=== PATIENT | male | born 1965 | race Caucasian/White ===

== ENCOUNTER 2018-03-04 16:08 | Inpatient (IN) | payer MEDICARE, MEDICAID ==
[2018-03-04 16:59] LABS: BASO # 0.1 K/uL (0.0-0.2); BASO % 0.8 % (0.0-2.0); EOS # 0.3 K/uL (0.0-0.7); EOS % 3.3 % (0.0-4.0); LYMPH # 1.5 K/uL (1.0-4.3); LYMPH % 15.1 % (20.0-40.0); MEAN CELL VOLUME 89.1 fL (80.0-94.0); MEAN CORPUSCULAR HEMOGLOBIN 29.3 pg (27.0-31.0); MEAN CORPUSCULAR HGB CONC 32.9 g/dL (33.0-37.0); MEAN PLATELET VOLUME 7.1 fL (7.2-11.7); MONO # 0.9 K/uL (0.0-0.8); NEUT % 71.8 % (50.0-75.0); NRBC % 0.1 % (0.0-2.0); RBC 3.76 Mil/uL (4.40-5.90); RED CELL DISTRIBUTION WIDTH 15.1 % (11.5-14.5); WHITE BLOOD COUNT 9.8 K/uL (4.8-10.8)
--- NOTE | 2018-03-04 17:22 | RAD ---
Date of service: 03/04/2018 HISTORY: Dyspnea COMPARISON: No prior. FINDINGS: LUNGS: Right lower lobe infiltrate. PLEURA: Right pleural effusion inseparable from CARDIOVASCULAR: Cardiomegaly OSSEOUS STRUCTURES: No significant abnormalities. VISUALIZED UPPER ABDOMEN: Normal. OTHER FINDINGS: None. IMPRESSION: Right lower lobe infiltrate/right pleural effusion.
[2018-03-04 17:28] LABS: TROPONIN I 0.057 ng/mL (0.00-0.120)
[2018-03-04 17:35] LABS: CALCIUM 8.2 mg/dl (8.6-10.4)
[2018-03-04 19:11] LABS: CALCIUM 8.1 mg/dl (8.6-10.4)
--- NOTE | 2018-03-04 19:18 | C.PDOC ---
History Of Present Illness 52 y/o male presents to the ED complaining of SOB for the past 1-2 weeks. Patient states he saw Dr. Pittman several days ago, had bloodwork done which revealed creatinine of 2.6. He then noted worsening SOB and developed generalized body swelling. Went to see Dr. Pittman again today, who sent patient to the ED. Patient currently denies any fever, nausea, vomiting, chest pain, abdominal pain, or other complaints. No known renal issues or hx of CHF. Time Seen by Provider: 03/04/18 16:48 Chief Complaint (Nursing): Shortness Of Breath History Per: Patient History/Exam Limitations: no limitations Onset/Duration Of Symptoms: Days (1-2 weeks) Current Symptoms Are (Timing): Still Present Associated Symptoms: Ankle/Leg Swelling Past Medical History Reviewed: Historical Data, Nursing Documentation, Vital Signs Vital Signs: Last Vital Signs Temp 98.3 F 03/04/18 16:11 Pulse 98 H 03/04/18 17:15 Resp 28 H 03/04/18 16:42 BP 175/106 H 03/04/18 16:11 Pulse Ox 99 03/04/18 16:42 - Medical History PMH: Depression, Diabetes (type II) Family History: States: Unknown Family Hx - Social History Hx Alcohol Use: No Hx Substance Use: No Review Of Systems Constitutional: Negative for: Fever, Chills Eyes: Negative for: Vision Change Cardiovascular: Negative for: Chest Pain, Palpitations Respiratory: Positive for: Shortness of Breath (worsening). Negative for: Cough, Hemoptysis Gastrointestinal: Negative for: Nausea, Vomiting Musculoskeletal: Positive for: Other (Generalized body swelling) Neurological: Negative for: Weakness, Numbness, Headache, Dizziness Physical Exam - Physical Exam Appears: Other (appears in moderate respiratory distress) Skin: Warm, Diaphoretic Head: Atraumatic, Normacephalic Eye(s): bilateral: Normal Inspection, PERRL, EOMI Oral Mucosa: Moist Neck: Normal ROM, Supple Chest: Symmetrical Cardiovascular: Rhythm Regular, No Murmur Respiratory: Rales (to the bilateral bases), No Rhonchi, No Wheezing Gastrointestinal/Abdominal: Soft, No Tenderness, No Distention, No Guarding Extremity: Normal ROM, Capillary Refill (less than 2 sec), Swelling (3+ pitting edema to bilateral ankles), Other (+ erythema and small blisters to the bilateral lower legs) Pulses: Left Dorsalis Pedis: Normal, Right Dorsalis Pedis: Normal Neurological/Psych: Oriented x3, Normal Cranial Nerves, Other (No focal deficits) ED Course And Treatment - Laboratory Results Result Diagrams: 03/05/18 08:23 03/05/18 08:23 ECG: Interpreted By Me ECG Rhythm: Sinus Rhythm Interpretation Of ECG: prolonged QTc, normal axis Rate From EC O2 Sat by Pulse Oximetry: 99 (NC) Pulse Ox Interpretation: Normal - Radiology CXR: Read By Radiologist CXR Interpretation: Yes: Other (RLL infiltrate/R pleural effusion) Critical Care Time - Critical Care Note Total Time (in mins): 30 Documented critical care: time excludes all time spent performing seperately billable procedures. Medical Decision Making Medical Decision Making: Impression: Worsening SOB, leg swelling Initial Plan: --Labs --EKG --Chest x-ray --Lasix 80 mg IVP Patient placed on BiPAP upon arrival. Labs drawn and significantly elevated BUN/Cr noted. Paged Dr. Pittman, patient will be admitted for acute renal failure. Would like Dr. Gibbs for nephrology consult. Discussed with wall covering contractor, Dr. Mcnally, patient accepted to ICU. Case discussed with Dr. Houston retail operations manager for Dr. Gibbs, made aware of nephrology consult and will arrange hemodialysis. Would like dialysis catheter placed and 80mg lasix ivp- ordered ang given in the ED. Paged Dr. Mckinney for pulmonology consult as requested by Dr. Pittman. Case discussed with Dr. Seo, will evaluate patient in the ED for dialysis catheter placement. Disposition Discussed With .: Van Pittman Jr. Doctor Will See Patient In The: Hospital Counseled Patient/Family Regarding: Studies Performed, Diagnosis - Disposition Disposition: HOSPITALIZED Disposition Time: 18:32 Condition: GUARDED - Clinical Impression Clinical Impression: Acute renal failure - Scribe Statement The provider has reviewed the documentation as recorded by the Diegoibe Francine Thornton Provider Attestation: All medical record entries made by the Scribe were at my direction and p ersonally dictated by me. I have reviewed the chart and agree that the record accurately reflects my personal performance of the history, physical exam, medical decision making, and the department course for this patient. I have also personally directed, reviewed, and agree with the discharge instructions and disposition.
[2018-03-04] MEDS ORDERED: Glucagon Recombinant 1 mg Inj IM PRN (19:55)
[2018-03-04] MEDS ORDERED: Dextrose 50% SYRINGE Inj (50 ml) IV PRN (19:55)
--- NOTE | 2018-03-04 20:27 | PCM.PROC ---
Procedures Attestation:: I certify that I have explained the specified Operation(s) or Procedure(s), risks, benefits and reasonable alternatives to the Patient and/or other person responsible. The opportunity was given to ask questions and all questions answered - Central Line Placement Right Femoral Hemodialysis Access Aseptic technique was employed throughout the procedure: Hand Hygiene done prior to procedure, Full sterile barriers (mask, hair cover, sterile gown, sterile gloves), Chloraprep Antiseptic: 2 minute prep for Femoral Pt. Placed on Pulse Ox Monitor: Yes Central Line Prep: Chlorhexidine-Alcohol Combination Local Anesthesia Used: Lidocaine 1% Ultrasound Used for Placement: Yes Central Line Lumen Inserted: double (HD catheter) Post Procedure: Sutured in Place, Good Blood Return, All Ports Aspirated, Flushed, Capped, Sterile Dressing Applied Secured by: Suture Post procedure dressing: Clear vapor permeable, Chlorhexidine disc (Biopatch) Post Procedure X-Ray: No Patient Tolerated Procedure: Well Immediate Complications: None Additional Comments: Difficult placement due to patient movement.
--- NOTE | 2018-03-04 20:38 | CP.PCM.CON ---
History of Present Illness - History of Present Illness History of Present Illness: 52 y/o male with h/o DM,HSP presents to the ED complaining of SOB for the past 1-2 weeks. Patient states he saw Dr. Pittman several days ago, had bloodwork done which revealed creatinine of 2.6. He then noted worsening SOB and developed g eneralized body swelling. Went to see Dr. Pittman again today, who sent patient to the ED. Patient currently denies any fever, nausea, vomiting, chest pain, abdominal pain, or other complaints. No known renal issues or hx of CHF. 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 absent: Fever, Headache - EENT Eyes: absent: Change in Vision Ears: absent: Ear Pain, Dizziness Nose/Mouth/Throat: absent: Sore Throat, Neck Pain - Cardiovascular Cardiovascular: Dyspnea, Edema. absent: Chest Pain, Palpitations - Respiratory Respiratory: Dyspnea. absent: Cough, Hemoptysis - Gastrointestinal Gastrointestinal: absent: Abdominal Pain, Nausea, Vomiting - Genitourinary Genitourinary: absent: Dysuria - Integumentary Integumentary: Rash, Wounds - Neurological Neurological: absent: Dizziness, Headaches Past Patient History - Past Social History Smoking Status: Never Smoked Chewing Tobacco Use: No Cigar Use: No Occupation: on disability Alcohol: None Drugs: Denies Home Situation {Lives}: With Family - NEUROLOGICAL Hx Meningitis: Yes (at age 13) - RENAL Hx Dialysis: No - ENDOCRINE/METABOLIC Hx Endocrine Disorders: Yes Hx Diabetes Mellitus Type 2: Yes - PSYCHIATRIC Hx Depression: Yes Hx Substance Use: No - SURGICAL HISTORY Hx Surgeries: Yes Other/Comment: toe removal - ANESTHESIA Hx Anesthesia: Yes Meds Allergies/Adverse Reactions: Allergies Allergy/AdvReac Type Severity Reaction Status Date / Time No Known Allergies Allergy Verified 03/04/18 16:16 - Medications Medications: Current Medications Dextrose (Dextrose 50% Inj) 0 ml IV STAT PRN; Protocol PRN Reason: Hypoglycemia Protocol Dextrose (Glutose 15) 0 gm PO ONCE PRN; Protocol PRN Reason: Hypoglycemia Protocol Glucagon (Glucagen Diagnostic Kit) 0 mg IM STAT PRN; Protocol PRN Reason: Hypoglycemia Protocol Dextrose (Dextrose 5% In Water 1000 Ml) 1,000 mls @ 0 mls/hr IV .Q0M PRN; Protocol PRN Reason: Hypoglycemia Protocol Insulin Human Regular (Novolin R) 0 unit SC ACHS ZELDA; Protocol Physical Exam - Constitutional Appears: In Acute Distress, Chronically Ill - Head Exam Head Exam: ATRAUMATIC, NORMAL INSPECTION, NORMOCEPHALIC - Eye Exam Eye Exam: EOMI, PERRL. absent: Scleral icterus Pupil Exam: NORMAL ACCOMODATION - ENT Exam ENT Exam: Mucous Membranes Moist - Neck Exam Neck exam: Positive for: Normal Inspection - Respiratory Exam Respiratory Exam: Rales. absent: Decreased Breath Sounds Additional comments: bilateral basal rales,decreased airentry in bases - Cardiovascular Exam Cardiovascular Exam: REGULAR RHYTHM. absent: JVD - GI/Abdominal Exam GI & Abdominal Exam: Normal Bowel Sounds, Soft. absent: Tenderness - Extremities Exam Extremities exam: Positive for: pedal edema. Negative for: calf tenderness Additional comments: lefr 1st toe amputated - Neurological Exam Neurological exam: Alert, Oriented x3 - Skin Additional comments: erythematous rash with blisters and small pustules both legs,abdominal wall Right groin HD catheter Results - Vital Signs Recent Vital Signs: Last Vital Signs Temp 98.3 F 03/04/18 16:11 Pulse 94 H 03/04/18 20:09 Resp 28 H 03/04/18 16:42 BP 116/75 03/04/18 19:43 Pulse Ox 99 03/04/18 19:35 - Labs Result Diagrams: 03/04/18 16:56 03/04/18 18:25 Labs: Laboratory Results - last 24 hr 03/04/18 03/04/18 03/04/18 16:19 16:56 16:56 WBC 9.8 RBC 3.76 L Hgb 11.0 L Hct 33.5 L MCV 89.1 MCH 29.3 MCHC 32.9 L RDW 15.1 H Plt Count 354 MPV 7.1 L Neut % (Auto) 71.8 Lymph % (Auto) 15.1 L [place] % (Auto) 9.0 Eos % (Auto) 3.3 Baso % (Auto) 0.8 Neut # (Auto) 7.0 Lymph # (Auto) 1.5 [place] # (Auto) 0.9 H Eos # (Auto) 0.3 Baso # (Auto) 0.1 Sodium 142 Potassium 5.5 H Chloride 108 H Carbon Dioxide 18 L Anion Gap 21 H BUN 120 H* Creatinine 8.3 H* Est GFR ( Amer) 8 Est GFR (Non-Af Amer) 7 POC Glucose (mg/dL) 139 H Random Glucose 138 H Calcium 8.2 L Troponin I 0.0570 NT-Pro-B Natriuret Pep 39945 H 03/04/18 18:25 WBC RBC Hgb Hct MCV MCH MCHC RDW Plt Count MPV Neut % (Auto) Lymph % (Auto) [place] % (Auto) Eos % (Auto) Baso % (Auto) Neut # (Auto) Lymph # (Auto) [place] # (Auto) Eos # (Auto) Baso # (Auto) Sodium 142 Potassium 5.6 H Chloride 108 H Carbon Dioxide 20 L Anion Gap 20 BUN 121 H* Creatinine 8.4 H* Est GFR ( Amer) 8 Est GFR (Non-Af Amer) 7 POC Glucose (mg/dL) Random Glucose 111 H Calcium 8.1 L Troponin I NT-Pro-B Natriuret Pep - EKG Data EKG Interpreted by: Myself - Imaging and Cardiology Chest x-ray Status: Image reviewed by me, Report reviewed by me Assessment & Plan - Assessment and Plan (Free Text) Assessment: 1. Cardiac- Elevated proBNP,no known h/o CHF For HD ECHO r/o CHF 2.Respiratory Chest xray with Right pleural effusion and?RLL infiltrate.no fever,leucocytosis. 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
[2018-03-04] MEDS: (Novolin R) Insulin Human Regular 100 units/ml vial SC SCH (22:00)
[2018-03-04 22:15] LABS: CREATININE, RANDOM URINE 43.2 mg/dL
[2018-03-04 22:44] LABS: HEPATITIS B SURFACE AG Negative (NEGATIVE)
[2018-03-04 22:50] LABS: SQUAMOUS EPITHIAL 3 /hpf (0-5); URINE AMORPHOUS SEDIMENT MODERATE /ul (<OCC); URINE BACTERIA OCC (<OCC); URINE BILIRUBIN NEGATIVE (NEGATIVE); URINE BLOOD 3+ (NEGATIVE); URINE CALCIUM OXALATE CRYSTALS OCC /hpf (<OCC); URINE CLARITY Hazy (Clear); URINE COLOR Yellow (YELLOW); URINE GLUCOSE (UA) 1+ mg/dL (Normal); URINE LEUKOCYTE ESTERASE TRACE Leu/uL (Negative); URINE PROTEIN 3+ mg/dL (NEGATIVE); URINE UROBILINOGEN NORMAL mg/dL (0.2-1.0)
[2018-03-04 23:01] LABS: HEPATITIS C ANTIBODY NEGATIVE (NEGATIVE)
--- NOTE | 2018-03-05 00:04 | CP.PCM.HP ---
History of Present Illness - History of Present Illness History of Present Illness: 52 y/o male with PMH DM, HSP presents to the ED complaining of SOB for the past [address] Pittman, pt was seen several days ago and had bloodwork done which showed a creatinine of 2.6. Pt reported worsening SOB and developed gen eralized body swelling, saw Dr. Pittman again today, who sent patient to the ED. Pt mother reports increased swelling and PO water intake over the past 2 weeks and distention of abdomen over past 3 months. Pt was seen in [place] ED last month for rash, dx HSP. He was told at that ED visit that he has renal disease. As per pt's mother, he has never had dx of CHF in the past. Patient denies fever, chest pain, nausea, vomiting, abdominal pain, diarrhea, dysuria, numbness, tingling. In ED: patient was hypoglycemic treated with dextrose, lasix 80 IV, femoral cath placed for hemodialysis tonight. SxH: partial amputation of L hallux Fam H: father , DM SocH: denies tobacco, etoh, recreational drug use Allergies: NKDA PMD: Dr. Pittman Present on Admission - Present on Admission Any Indicators Present on Admission: No Review of Systems - Review of Systems Review of Systems: as per HPI Past Patient History - Past Social History Smoking Status: Never Smoked Chewing Tobacco Use: No Cigar Use: No Occupation: on disability Alcohol: None Drugs: Denies Home Situation {Lives}: With Family - NEUROLOGICAL Hx Meningitis: Yes (at age 13) - RENAL Hx Dialysis: No - ENDOCRINE/METABOLIC Hx Endocrine Disorders: Yes Hx Diabetes Mellitus Type 2: Yes - PSYCHIATRIC Hx Depression: Yes Hx Substance Use: No - SURGICAL HISTORY Hx Surgeries: Yes Other/Comment: toe removal - ANESTHESIA Hx Anesthesia: Yes Meds Allergies/Adverse Reactions: Allergies Allergy/AdvReac Type Severity Reaction Status Date / Time No Known Allergies Allergy Verified 03/04/18 16:16 Physical Exam - Constitutional Appears: Agitated Additional comments: agitated, yelling, refusing Bipap - Head Exam Head Exam: ATRAUMATIC, NORMOCEPHALIC - Eye Exam Eye Exam: EOMI, Normal appearance - ENT Exam ENT Exam: Mucous Membranes Moist, Normal Exam - Respiratory Exam Respiratory Exam: Rhonchi. absent: Rales, Wheezes - Cardiovascular Exam Cardiovascular Exam: REGULAR RHYTHM, +S1, +S2. absent: Gallop, Rubs, Systolic Murmur - GI/Abdominal Exam GI & Abdominal Exam: Distended, Normal Bowel Sounds. absent: Soft, Tenderness - Extremities Exam Extremities exam: Positive for: pedal edema Additional comments: 3+ pitting edema b/l - Psychiatric Exam Psychiatric exam: Anxious - Skin Additional comments: erythematous papules scattered diffusely on b/l legs, with secondary excoriation. Results - Vital Signs Recent Vital Signs: Last Vital Signs Temp 98 F 03/04/18 23:00 Pulse 91 H 03/04/18 23:00 Resp 1 L 03/04/18 23:00 BP 179/101 H 03/04/18 23:00 Pulse Ox 96 03/04/18 23:00 - Labs Result Diagrams: 03/04/18 16:56 03/04/18 18:25 Labs: Laboratory Results - last 24 hr 03/04/18 03/04/18 03/04/18 16:19 16:56 16:56 WBC 9.8 RBC 3.76 L Hgb 11.0 L Hct 33.5 L MCV 89.1 MCH 29.3 MCHC 32.9 L RDW 15.1 H Plt Count 354 MPV 7.1 L Neut % (Auto) 71.8 Lymph % (Auto) 15.1 L [place] % (Auto) 9.0 Eos % (Auto) 3.3 Baso % (Auto) 0.8 Neut # (Auto) 7.0 Lymph # (Auto) 1.5 [place] # (Auto) 0.9 H Eos # (Auto) 0.3 Baso # (Auto) 0.1 ESR Sodium 142 Potassium 5.5 H Chloride 108 H Carbon Dioxide 18 L Anion Gap 21 H BUN 120 H* Creatinine 8.3 H* Est GFR ( Amer) 8 Est GFR (Non-Af Amer) 7 POC Glucose (mg/dL) 139 H Random Glucose 138 H Calcium 8.2 L Troponin I 0.0570 NT-Pro-B Natriuret Pep 48593 H Urine Color Urine Clarity Urine pH Ur Specific [place] Urine Protein Urine Glucose (UA) Urine Ketones Urine Blood Urine Nitrate Urine Bilirubin Urine Urobilinogen Ur Leukocyte Esterase Urine WBC (Auto) Urine RBC (Auto) Ur Squamous Epith Cells Calcium Oxalate Crystal Amorphous Sediment Urine Bacteria Ur Random Creatinine U Random Total Protein Ur Random Sodium Hep Bs Antigen Hep Bs Antibody Hepatitis C Antibody 03/04/18 03/04/18 03/04/18 18:25 21:35 21:50 WBC RBC Hgb Hct MCV MCH MCHC RDW Plt Count MPV Neut % (Auto) Lymph % (Auto) [place] % (Auto) Eos % (Auto) Baso % (Auto) Neut # (Auto) Lymph # (Auto) [place] # (Auto) Eos # (Auto) Baso # (Auto) ESR 120 H Sodium 142 Potassium 5.6 H Chloride 108 H Carbon Dioxide 20 L Anion Gap 20 BUN 121 H* Creatinine 8.4 H* Est GFR ( Amer) 8 Est GFR (Non-Af Amer) 7 POC Glucose (mg/dL) Random Glucose 111 H Calcium 8.1 L Troponin I NT-Pro-B Natriuret Pep Urine Color Urine Clarity Urine pH Ur Specific [place] Urine Protein Urine Glucose (UA) Urine Ketones Urine Blood Urine Nitrate Urine Bilirubin Urine Urobilinogen Ur Leukocyte Esterase Urine WBC (Auto) Urine RBC (Auto) Ur Squamous Epith Cells Calcium Oxalate Crystal Amorphous Sediment Urine Bacteria Ur Random Creatinine U Random Total Protein Ur Random Sodium Hep Bs Antigen Negative Hep Bs Antibody Hepatitis C Antibody Negative 03/04/18 03/04/18 03/04/18 21:50 21:53 21:53 WBC RBC Hgb Hct MCV MCH MCHC RDW Plt Count MPV Neut % (Auto) Lymph % (Auto) [place] % (Auto) Eos % (Auto) Baso % (Auto) Neut # (Auto) Lymph # (Auto) [place] # (Auto) Eos # (Auto) Baso # (Auto) ESR Sodium Potassium Chloride Carbon Dioxide Anion Gap BUN Creatinine Est GFR ( Amer) Est GFR (Non-Af Amer) POC Glucose (mg/dL) Random Glucose Calcium Troponin I NT-Pro-B Natriuret Pep Urine Color Yellow Urine Clarity Hazy Urine pH 6.0 Ur Specific [place] 1.008 Urine Protein 3+ H Urine Glucose (UA) 1+ H Urine Ketones Negative Urine Blood 3+ H Urine Nitrate Negative Urine Bilirubin Negative Urine Urobilinogen Normal Ur Leukocyte Esterase Trace Urine WBC (Auto) 21 H Urine RBC (Auto) 120 H Ur Squamous Epith Cells 3 Calcium Oxalate Crystal Occ H Amorphous Sediment Moderate H Urine Bacteria Occ H Ur Random Creatinine 43.2 U Random Total Protein 1100.0 H Ur Random Sodium 51 Hep Bs Antigen Hep Bs Antibody Negative Hepatitis C Antibody 03/04/18 21:56 WBC RBC Hgb Hct MCV MCH MCHC RDW Plt Count MPV Neut % (Auto) Lymph % (Auto) [place] % (Auto) Eos % (Auto) Baso % (Auto) Neut # (Auto) Lymph # (Auto) [place] # (Auto) Eos # (Auto) Baso # (Auto) ESR Sodium Potassium Chloride Carbon Dioxide Anion Gap BUN Creatinine Est GFR ( Amer) Est GFR (Non-Af Amer) POC Glucose (mg/dL) 76 Random Glucose Calcium Troponin I NT-Pro-B Natriuret Pep Urine Color Urine Clarity Urine pH Ur Specific [place] Urine Protein Urine Glucose (UA) Urine Ketones Urine Blood Urine Nitrate Urine Bilirubin Urine Urobilinogen Ur Leukocyte Esterase Urine WBC (Auto) Urine RBC (Auto) Ur Squamous Epith Cells Calcium Oxalate Crystal Amorphous Sediment Urine Bacteria Ur Random Creatinine U Random Total Protein Ur Random Sodium Hep Bs Antigen Hep Bs Antibody Hepatitis C Antibody Assessment & Plan - Assessment and Plan (Free Text) Assessment: 52 yo M with PMH DM, HSP presents to ED with shortness of breath for 2 weeks, admitted for evaluation and treatment of acute kidney failure, to be dialyzed tonight. Plan: Pulm - pt with shortness of breath - refusing bipap - CXR: R pleural effusion and RLL infiltrate - likely secondary to fluid overload - afebrile, no leukocytosis - f/u rpt CXR in AM Cardio/Vascular - EKG NSR, prolonged QT - BNP 30,800 - I/Os, daily weights - pt denies h/o CHF - f/u ECHO - pt for hemodialysis - monitor for hypotension Renal - BUN 121 - Cr 8.4 - K+ 5.6 - urine total protein 1100 - acute on chronic renal failure - pt for hemodialysis - I/Os, daily weights - f/u AM CMP - sliding scale - monitor electrolytes - nephro consulted, Dr. Houston Heme - H/H .5 - normocytic anemia - f/u iron studies, B12, folate GI - prophylaxis with protonix 40 BID ID - afebrile, no leukocytosis - f/u BCx, UCx - f/u hep panel Case reviewed and plan discussed with Dr. Pittman
--- NOTE | 2018-03-05 04:07 | CON ---
DATE: 03/04/2018 ATTENDING PHYSICIAN: . HISTORY OF PRESENT ILLNESS: Mr. Silva is a 52-year-old male who is being seen for renal failure. Mr. Silva has a long history of diabetes and hypertension, who was told of proteinuria several months ago and renal failure about a month ago. He presented to [facility] approximately a month ago with a generalized erythematous rash. At that time, they told him he had renal failure and was to see a internal review and audit compliance. They also told him that the rash was compatible with Henoch-Schonlein purpura. Over the course of the next several weeks, he developed progressive leg swelling and abdominal swelling and shortness of breath. He was seen by his primary several days ago when his creatinine was 2.6 according to the records. He came back today, apparently worse, was sent to the emergency room and subsequently admitted. His white count was at 9800, his hemoglobin was 11 with a hematocrit of 33.5. His platelet count was 354,000. His sodium was 142, his potassium was 5.6, his chloride was 108, his CO2 was 20, BUN 121, creatinine 8.4, glucose was 139. ProBNP was 30,800. The chest x-ray showed a right lower lobe infiltrate and a right pleural effusion. PAST MEDICAL HISTORY: No myocardial infarction, stroke, retinopathy, or neuropathy. He was admitted to [facility]. ALLERGIES: THERE ARE NO ALLERGIES. MEDICATIONS: Not known. FAMILY HISTORY: Positive for diabetes and heart disease. SOCIAL HISTORY: Negative for alcohol or drug abuse. He does not smoke or take anti-inflammatory agents. REVIEW OF SYSTEMS: He denies chills, fever, or orthostatic symptoms. There was no chest pain or hemoptysis. He denied abdominal pain, nausea, vomiting, or diarrhea. There was no mention of blood in his urine or dysuria, and please see the above. PHYSICAL EXAMINATION: GENERAL: He was an obese male in no acute distress with periods of agitation and yelling. VITAL SIGNS: His blood pressure was 163/100, his pulse was 97, and his temperature was 98.3. NECK: There was no jugular venous distention at 30 degrees. CARDIOPULMONARY: The heart rhythm was regular. LUNGS: Clear. ABDOMEN: Massively obese and distended, but nontender. EXTREMITIES: He had 2 to 3+ leg edema. A Reynoso was in place on his leg where eschars and erythematous ulceration. IMPRESSION: 1. Acute kidney injury, etiology unclear. Considerations include a cardiorenal syndrome, cannot rule out a systemic illness and cannot rule out underlying chronic kidney disease secondary to diabetes and/or hypertension. 2. Diabetes, hypertension. 3. Erythematous rash, etiology unclear. 4. Obesity. RECOMMENDATIONS: 1. We would recommend Reynoso catheter insertion. A 300 mL residual. In view of obvious retention, hyperkalemia, shortness of breath, and elevated creatinine would schedule a short dialysis with slow blood flow and mild ultrafiltration. 2, Renal ultrasound, urine for protein, creatinine, and sodium. 3. We would obtain dermatology consult for biopsy of skin lesions. History and physical and consent for dialysis obtained by bilingual interpreter. The patient consented to dialysis. Thank you for your kind referral. We will continue to follow with you. Magdiel Houston MD
[2018-03-05] MEDS: (Novolin R) Insulin Human Regular 100 units/ml vial SC SCH ×4 (07:30→22:33)
[2018-03-05 08:39] LABS: BASO # 0.1 K/uL (0.0-0.2); BASO % 0.9 % (0.0-2.0); EOS # 0.3 K/uL (0.0-0.7); EOSINOPHIL COUNT 0.3 K/uL (0.0-0.7); HEMOGLOBIN 9.6 g/dL (12.0-18.0); LYMPH # 1.3 K/uL (1.0-4.3); LYMPH % 14.6 % (20.0-40.0); MEAN CELL VOLUME 87.8 fL (80.0-94.0); MEAN CORPUSCULAR HEMOGLOBIN 29.3 pg (27.0-31.0); MEAN CORPUSCULAR HGB CONC 33.4 g/dL (33.0-37.0); MEAN PLATELET VOLUME 7.4 fL (7.2-11.7); MONO # 0.8 K/uL (0.0-0.8); MONO % 9.4 % (0.0-10.0); NEUT # 6.2 K/uL (1.8-7.0); NEUT % 72.1 % (50.0-75.0); NRBC % 0.1 % (0.0-2.0); RBC 3.27 Mil/uL (4.40-5.90); RED CELL DISTRIBUTION WIDTH 15.2 % (11.5-14.5); WHITE BLOOD COUNT 8.6 K/uL (4.8-10.8)
[2018-03-05 09:00] LABS: COMPLEMENT C4 43.6 mg/dL (14.0-44.0)
[2018-03-05 09:02] LABS: ALB/GLOB RATIO 0.8 (1.0-2.1); ALBUMIN 2.8 g/dL (3.5-5.0); IRON 33 ug/dL (49-181)
[2018-03-05 09:11] LABS: % IRON SATURATION 11 (20-55); TOTAL IRON BINDING CAPACITY 300 ug/dL (250-450)
[2018-03-05 09:40] LABS: HEPATITIS C ANTIBODY NEGATIVE (NEGATIVE)
[2018-03-05] MEDS: Pantoprazole 40 mg EC Tab PO SCH (09:42)
[2018-03-05 09:56] LABS: FOLATE 13.3 ng/mL
[2018-03-05 11:21] LABS: ANA PATTERN HOMOGENOUS
--- NOTE | 2018-03-05 14:32 | CP.PCM.PN ---
Subjective - Date & Time of Evaluation Date of Evaluation: 03/05/18 Time of Evaluation: 14:27 - Subjective Subjective: unable to obtain ROS pt agitated and rocking back and forth no family in room tolerated HD last night, 1 kg uf labs noted for MARKY + urine eosinophils + Objective - Vital Signs/Intake and Output Vital Signs (last 24 hours): Temp Pulse Resp BP Pulse Ox 97.6 F 103 H 20 162/102 H 99 03/05/18 07:00 03/05/18 13:58 03/05/18 07:00 03/05/18 13:04 03/05/18 07:00 Intake and Output: 03/05/18 03/05/18 06:59 18:59 Intake Total 600 Output Total 1800 1400 Balance -1800 -800 - Medications Medications: Current Medications Amlodipine Besylate (Norvasc) 10 mg PO DAILY [facility] Last Admin: 03/05/18 13:00 Dose: 10 mg Benztropine Mesylate (Cogentin) 2 mg PO DAILY [facility] Last Admin: 03/05/18 13:00 Dose: 2 mg Dextrose (Dextrose 50% Inj) 0 ml IV STAT PRN; Protocol PRN Reason: Hypoglycemia Protocol Dextrose (Glutose 15) 0 gm PO ONCE PRN; Protocol PRN Reason: Hypoglycemia Protocol Glimepiride (Amaryl) 4 mg PO ACB [facility] Last Admin: 03/05/18 13:03 Dose: 4 mg Glucagon (Glucagen Diagnostic Kit) 0 mg IM STAT PRN; Protocol PRN Reason: Hypoglycemia Protocol Heparin Sodium (Porcine) (Heparin) 5,000 units SC Q8 [facility] Last Admin: 03/05/18 13:03 Dose: Not Given Dextrose (Dextrose 5% In Water 1000 Ml) 1,000 mls @ 0 mls/hr IV .Q0M PRN; Protocol PRN Reason: Hypoglycemia Protocol Insulin Glargine (Lantus) 25 unit SC HS [facility] Insulin Human Regular (Novolin R) 0 unit SC ACHS [facility]; Protocol Last Admin: 03/05/18 12:21 Dose: Not Given Lisinopril (Zestril) 40 mg PO Q24H [facility] Olanzapine (Zyprexa) 20 mg PO DAILY [facility] Last Admin: 03/05/18 13:00 Dose: 20 mg Pantoprazole Sodium (Protonix Ec Tab) 40 mg PO DAILY [facility] Last Admin: 03/05/18 09:42 Dose: 40 mg Pneumococcal Polyvalent Vaccine (Pneumovax 23 Vaccine) 0.5 ml IM .ONCE ONE Stop: 03/07/18 14:01 Zolpidem Tartrate (Ambien) 5 mg PO HS [facility] - Labs Labs: 03/05/18 08:23 03/05/18 08:23 - Constitutional Appears: Unkempt, Combative, Chronically Ill - Head Exam Head Exam: ATRAUMATIC, NORMAL INSPECTION - Eye Exam Eye Exam: EOMI - ENT Exam ENT Exam: Mucous Membranes Moist - Neck Exam Neck Exam: Full ROM. absent: Lymphadenopathy - Respiratory Exam Respiratory Exam: Rales - Cardiovascular Exam Cardiovascular Exam: REGULAR RHYTHM - GI/Abdominal Exam GI & Abdominal Exam: Soft. absent: Tenderness - Extremities Exam Extremities Exam: Pedal Edema - Neurological Exam Neurological Exam: Alert, Awake - Psychiatric Exam Psychiatric exam: Agitated Assessment and Plan - Assessment and Plan (Free Text) Assessment: possible RPGN vs diabetic nephropathy history of recent skin biopsy with HSP findings volume overloaded and hypertensive repeat HD today for fluid overload and HTN start Norvasc Please obtain skin biopsy report if evidence of HSP, consideration to pulse steroids; some concern, given agitation and diabetic state will not pursue kidney biopsy,given agitation
--- NOTE | 2018-03-05 15:08 | PCM.PSYCH ---
Initial Psychiatric Evaluation - Initial Psychiatric Evaluation Chief Complaint (in patient's own words): "I wanna go home" History of Present Illness and Precipitating Events: Psych consult was requested for his acute psychosis, confusion, agitation Pt is seen with a medical medical laboratory technologist Chart reviewed His mother is called with his permission but she was not available and no vm opened He is a very poor historian, plus hotile and uncooperative He has been refusing treatment and lab work, despite very severe condition (BUN>90) and risks. He does NOT grasp the risks and consequences of his refusal When confronted with "you may " he shrugged and said he didn't care. He also seemed very thought disordered, paranoid and bizarre He is on Zyprexa 20 mg but not clear if he was comliant Also, given his DKA, zyprexa is the last medication to use among antipsychotics Haldol is started Past psych hx: Admissions in the past. Denied substance hx Medical: Obese, HTN, DM, now renal failure? Family psych hx: Unknown Current Medications: Active Medications Generic Name Dose Route Start Last Admin Trade Name Freq PRN Reason Stop Dose Admin Amlodipine Besylate 10 mg 03/05/18 13:00 03/05/18 13:00 Norvasc PO 10 mg DAILY [facility] Administration Benztropine Mesylate 2 mg 03/05/18 13:00 03/05/18 13:00 Cogentin PO 2 mg DAILY [facility] Administration Dextrose 0 ml 03/04/18 19:55 Dextrose 50% Inj IV STAT PRN Hypoglycemia Protocol Protocol Dextrose 0 gm 03/04/18 19:55 Glutose 15 PO ONCE PRN Hypoglycemia Protocol Protocol Glimepiride 4 mg 03/05/18 12:15 03/05/18 13:03 Amaryl PO 4 mg ACB [facility] Administration Glucagon 0 mg 03/04/18 19:55 Glucagen Diagnostic Kit IM STAT PRN Hypoglycemia Protocol Protocol Heparin Sodium (Porcine) 5,000 units 03/04/18 22:00 03/05/18 13:03 Heparin SC Not Given Q8 [facility] Dextrose 1,000 mls @ 0 mls/hr 03/04/18 19:55 Dextrose 5% In Water 1000 Ml IV .Q0M PRN Hypoglycemia Protocol Protocol Per Protocol Insulin Glargine 25 unit 03/05/18 22:00 Lantus SC HS [facility] Insulin Human Regular 0 unit 03/04/18 22:00 03/05/18 12:21 Novolin R SC Not Given ACHS [facility] Protocol Lisinopril 40 mg 03/05/18 14:30 03/05/18 14:33 Zestril PO Not Given Q24H [facility] Olanzapine 20 mg 03/05/18 13:00 03/05/18 13:00 Zyprexa PO 20 mg DAILY [facility] Administration Pantoprazole Sodium 40 mg 03/05/18 10:00 03/05/18 09:42 Protonix Ec Tab PO 40 mg DAILY [facility] Administration Pneumococcal Polyvalent Vaccine 0.5 ml 03/07/18 14:00 Pneumovax 23 Vaccine IM 03/07/18 14:01 .ONCE ONE Zolpidem Tartrate 5 mg 03/05/18 22:00 Ambien PO [facility] Past Psychiatric History - Past Psychiatric History Previous Treatment History: Inpatient Pertinent Medical Hx (Current Medical&Sleep Prob, Allergies): Allergies Allergy/AdvReac Type Severity Reaction Status Date / Time No Known Allergies Allergy Verified 03/04/18 16:16 Insulin Glargine, Recombina [Lantus] 25 unit SC 03/04/18 Zolpidem [Ambien] 10 mg PO HS 03/04/18 Zyprexa 20 mg PO DAILY 03/04/18 Benztropine [Benztropine Mesylate] 2 mg PO DAILY 03/05/18 Glimepiride [Amaryl] 4 mg PO DAILY 03/05/18 Review of Systems - Review of Systems Systems not reviewed;Unavailable: Psychotic Mental Status Examination - Personal Presentation Personal Presentation: Looks older than stated age - Affect Affect: Other (intense, labile) - Motor Activity Motor Activity: Psychomotor Agitation - Reliability in Providing Information Reliability in Providing Information: Poor, due to alteration in thoughts - Speech Speech: Disorganized - Mood Mood: Other (irate, angry) - Formal Thought Process Formal Thought Process: Paranoia, Loosening of associations - Cognitive Functions Orientation: Person, Place Sensorium: Alert Attention/Concentration: Easily distracted Abstract Thinking: [place] Estimate of Intelligence: Below average Judgement: Imparied, as evidence by: Poor judgement Memory: Recent impaired, as evidence by: Inability to recall events of the day, Remote impaired as evidenced by: Inability to recall sig life events - Risk Risk: Diminished functioning - Strength & Assets Inventory Strength & Assets Inventory: Family support DSM 5 DX - DSM 5 DSM 5 Diagnosis: Chronic schizophrenia, acute exacerbation r/o schizoaffective d/o r/o pending delirium r/o intellectual disability - Recommended/Plan of Treatment Treatment Recommendations and Plan of Treatment: The brii does NOT have capacity to make medical decisions. Haldol will replace zyprexa Support and psychoed Involve mother, maybe she will be able to convince him Guardian? 33 min
--- NOTE | 2018-03-05 16:10 | CARD ---
APPROVED REPORT Date of service: 03/04/2018 EKG Measurement Heart [id number] <Conclusion> Normal sinus rhythm Nonspecific T wave abnormality Prolonged QT Abnormal ECG
--- NOTE | 2018-03-05 18:03 | CP.PCM.PN ---
Subjective - Date & Time of Evaluation Date of Evaluation: 03/05/18 Time of Evaluation: 08:30 - Subjective Subjective: PGY-[address] Pittman Patient is seen and examined at bedside.Patient states he wants to go home multiple times and refuses to answer questions regarding his health. Patient asked to leave him alone and curses out loud. ROS unttainable due to patient refusing to answer. Objective - Vital Signs/Intake and Output Vital Signs (last 24 hours): Temp Pulse Resp BP Pulse Ox 97.6 F 98 H 20 163/97 H 95 03/05/18 16:04 03/05/18 17:00 03/05/18 16:04 03/05/18 16:04 03/05/18 16:04 Intake and Output: 03/05/18 03/05/18 06:59 18:59 Intake Total 600 Output Total 1800 1400 Balance -1800 -800 - Medications Medications: Current Medications Amlodipine Besylate (Norvasc) 10 mg PO DAILY [facility] Last Admin: 03/05/18 15:15 Dose: Not Given Benztropine Mesylate (Cogentin) 2 mg PO DAILY [facility] Last Admin: 03/05/18 15:15 Dose: Not Given Dextrose (Dextrose 50% Inj) 0 ml IV STAT PRN; Protocol PRN Reason: Hypoglycemia Protocol Dextrose (Glutose 15) 0 gm PO ONCE PRN; Protocol PRN Reason: Hypoglycemia Protocol Glimepiride (Amaryl) 4 mg PO ACB [facility] Last Admin: 03/05/18 15:14 Dose: Not Given Glucagon (Glucagen Diagnostic Kit) 0 mg IM STAT PRN; Protocol PRN Reason: Hypoglycemia Protocol Haloperidol (Haldol) 5 mg PO BID [facility] Last Admin: 03/05/18 17:52 Dose: 5 mg Heparin Sodium (Porcine) (Heparin) 5,000 units SC Q8 [facility] Last Admin: 03/05/18 13:03 Dose: Not Given Dextrose (Dextrose 5% In Water 1000 Ml) 1,000 mls @ 0 mls/hr IV .Q0M PRN; Protocol PRN Reason: Hypoglycemia Protocol Insulin Glargine (Lantus) 25 unit SC HS [facility] Insulin Human Regular (Novolin R) 0 unit SC ACHS [facility]; Protocol Last Admin: 03/05/18 17:51 Dose: 1 unit Lisinopril (Zestril) 40 mg PO Q24H [facility] Last Admin: 03/05/18 14:33 Dose: Not Given Olanzapine (Zyprexa) 10 mg PO HS [facility] Pantoprazole Sodium (Protonix Ec Tab) 40 mg PO DAILY [facility] Last Admin: 03/05/18 09:42 Dose: 40 mg Pneumococcal Polyvalent Vaccine (Pneumovax 23 Vaccine) 0.5 ml IM .ONCE ONE Stop: 03/07/18 14:01 Trazodone HCl (Desyrel) 100 mg PO HS [facility] Zolpidem Tartrate (Ambien) 5 mg PO HS [facility] - Labs Labs: 03/05/18 08:23 03/05/18 08:23 - Constitutional Appears: Non-toxic, No Acute Distress, Unkempt, Agitated - Head Exam Head Exam: ATRAUMATIC, NORMAL INSPECTION, NORMOCEPHALIC - Eye Exam Eye Exam: EOMI, Normal appearance - ENT Exam ENT Exam: Mucous Membranes Moist, Normal Exam - Neck Exam Neck Exam: Full ROM, Normal Inspection - Respiratory Exam Respiratory Exam: Clear to Ausculation Bilateral, NORMAL BREATHING PATTERN. absent: Accessory Muscle Use, Rales, Rhonchi, Wheezes, Respiratory Distress - Cardiovascular Exam Cardiovascular Exam: REGULAR RHYTHM, +S1, +S2 - GI/Abdominal Exam GI & Abdominal Exam: Soft, Normal Bowel Sounds. absent: Distended, Tenderness - Extremities Exam Extremities Exam: Full ROM, Normal Inspection Additional comments: bilateral lower extremity edema multiple erythematous lesions in both extremities - Back Exam Back Exam: Full ROM, NORMAL INSPECTION - Neurological Exam Neurological Exam: Alert, Awake, Normal Gait - Psychiatric Exam Psychiatric exam: Agitated, Anxious, Depressed, Flat Affect - Skin Skin Exam: Dry, Warm Assessment and Plan - Assessment and Plan (Free Text) Plan: Acute kidney failure - acute on chronic renal failure - On Admission: BUN 121, cr 8.4, K 5.4, urine total protein 1100 - Hemodialysis completed yesterday - today's lab : BUN 99, cr 6.7, K 4.7 - Patient to go for HD today, patient most likely to continue HD, follow Dr Yoseph justin - continue I/O -renal U/S - pending report - Nephro - Dr Henyr/Dr Houston- possible RPGN vs diabetic nephropathy, history of recent skin biopsy with HSP findings volume overloaded and hypertensive, repeat HD today for fluid overload and HTN, start Norvasc Please obtain skin biopsy report, if evidence of HSP, consideration to pulse steroids; some concern, given agitation and diabetic state, will not pursue kidney biopsy,given agitation -f/u ANCA, Cryoglobulin, GBM AB - f/u am labs - f/u Hep B and Hep C panel dyspnea, most likely due to fluid overload - Pulm consult - Dr Mckinney - help is appreciated -CXR: R pleural effusion and RLL infiltrate - likely secondary to fluid overload - afebrile, no leukocytosis - repeat CXR - pending official report - f/u Echo - f/u blood culture/urine culture - refuses bipap - O2 Sat - 99% High blood pressure -received Lasix 80 mg IVP once in ED, 40 mg IVP stat later in the medical laboratory scientist - lisinopril 40 mg PO Q 24hrs - amlodipine 10 mg PO daily - continue to monitor blood pressure hx of DM -sliding scale -Insulin Glargine 25 unit SC HS -Glimepriride 4 mg po ACB -hypoglycemia protocol - F/U HbA1c - accuchecks ACHS ? hx of Henoch Scholein Purpura (HSP) - obtain report from [facility] - Patient to sign consent to release medical records to [facility] - will follow on biopsy report from [facility] Hx of anxiety/depression/psychiatric disorder - Halopridol 5mg PO BID - [id number] po HS - trazodone 100mg PO HS - Zolpidem 5mg HS - Benztropine 2mg PO - Psych consult Dr Leyva - recs is appreciated Lower extremity lesions - wound care consulted - follow up recs PPX - Heparin 5000 units SC Q8 - Protonix 40 mg PO daily -contraindication for SCDs - f/u PT, OT, case management - HHD - grain picker referral Dispo: Patient is non compliant with medication. Patient's mother Tere Silva can be reached at [phone] (uzbek speaker) Plan discussed with Dr Pittman. Medical management as per Dr Zain Crawford, PGY-1
[2018-03-05 18:06] LABS: HEPATITIS B SURFACE AG Negative (NEGATIVE)
[2018-03-05 18:12] LABS: HEPATITIS A IGM NEGATIVE (NEGATIVE); HEPATITIS B CORE AB NEGATIVE (NEGATIVE)
[2018-03-05 18:24] LABS: HEPATITIS C ANTIBODY NEGATIVE (NEGATIVE)
[2018-03-05] MEDS: (Lantus) Insulin Glargine, Recombinant SC SCH (22:33)
[2018-03-06 07:21] LABS: BASO # 0.1 K/uL (0.0-0.2); BASO % 0.6 % (0.0-2.0); EOS # 0.3 K/uL (0.0-0.7); EOS % 3.1 % (0.0-4.0); HEMOGLOBIN 9.3 g/dL (12.0-18.0); LYMPH # 1.4 K/uL (1.0-4.3); LYMPH % 15.3 % (20.0-40.0); MEAN CELL VOLUME 88.1 fL (80.0-94.0); MEAN CORPUSCULAR HGB CONC 32.9 g/dL (33.0-37.0); MEAN PLATELET VOLUME 7.3 fL (7.2-11.7); MONO # 0.9 K/uL (0.0-0.8); NEUT # 6.8 K/uL (1.8-7.0); NRBC % 0.1 % (0.0-2.0); RBC 3.2 Mil/uL (4.40-5.90); WHITE BLOOD COUNT 9.4 K/uL (4.8-10.8)
[2018-03-06] MEDS: (Novolin R) Insulin Human Regular 100 units/ml vial SC SCH ×5 (07:41→22:05)
[2018-03-06 08:03] LABS: ALB/GLOB RATIO 0.8 (1.0-2.1); ALBUMIN 2.7 g/dL (3.5-5.0); CALCIUM 7.7 mg/dl (8.6-10.4)
--- NOTE | 2018-03-06 08:34 | RAD ---
Date of service: 03/05/2018 PROCEDURE: CHEST RADIOGRAPH, 1 VIEW HISTORY: RLL infiltrate/pleural effusion COMPARISON: 03/04/2018. FINDINGS: LUNGS: Little interval change in airspace disease in the right lower lobe. Again seen is moderate pulmonary venous congestion. PLEURA: No pneumothorax. No change in moderate right pleural effusion. Suspect small left pleural effusion. CARDIOVASCULAR: Persistent moderate cardiomegaly. OSSEOUS STRUCTURES: No significant abnormalities. VISUALIZED UPPER ABDOMEN: Normal. OTHER FINDINGS: None. IMPRESSION: Little interval change in left lower lobe atelectasis/pneumonia and moderate left pleural effusion. Persistent moderate cardiomegaly, mild pulmonary venous congestion and suspect small left pleural effusion.
[2018-03-06] MEDS: Pantoprazole 40 mg EC Tab PO SCH (10:38)
--- NOTE | 2018-03-06 13:40 | US ---
Date of service: 03/04/2018 PROCEDURE: Ultrasound of the Kidneys HISTORY: acute kidney failure COMPARISON: None available. TECHNIQUE: Sonogram of the kidneys. FINDINGS: RIGHT KIDNEY: Measures: 7.9 x 3.9 x 4.4 cm. Normal in size, and contour. Mild increased echogenicity-can be seen with medical renal disease. No stone, solid mass lesion or hydronephrosis visualized. A mid to upper pole cyst 2.0 x 1.5 x 2.2 cm in size is noted. LEFT KIDNEY: Measures: 11.9 x 5.1 x 5.5 cm. Normal in size, and contour. Mild increased echogenicity-can be seen with medical renal disease. No stone, solid mass lesion or hydronephrosis visualized. An upper pole cyst-4.9 x 3.3 x 4.6 any lower pole cyst 1.3 x 1.0 x 1.1 cm in size is noted. OTHER FINDINGS: On some of the images there is some perceived increased echogenicity around biliary triads over inferred imaging of the liver. If not already known and if clinically indicated, consider follow-up abdominal ultrasound study for further evaluation Technologist has noted that patient has a Reynoso catheter however the catheter is not visualized in the urinary bladder area. Please correlate clinically IMPRESSION: Bilateral renal cysts. No hydronephrosis. Bilateral relative increased renal cortical echogenicity-can be seen with medical renal disease. Other findings as above.
--- NOTE | 2018-03-06 13:52 | CP.PCM.PN ---
Subjective - Date & Time of Evaluation Date of Evaluation: 03/06/18 Time of Evaluation: 13:49 - Subjective Subjective: seen and examined notes reviewed renal US noted ROS cannot be obtained, pt is sleeping and on waking up refuses to answer questions Objective - Vital Signs/Intake and Output Vital Signs (last 24 hours): Temp Pulse Resp BP Pulse Ox 98.2 F 106 H 20 156/96 H 94 L 03/06/18 08:00 03/06/18 12:58 03/06/18 08:00 03/06/18 08:00 03/06/18 08:00 Intake and Output: 03/06/18 03/06/18 06:59 18:59 Intake Total 120 Output Total 700 475 Balance -700 -355 - Medications Medications: Current Medications Amlodipine Besylate (Norvasc) 10 mg PO DAILY [facility] Last Admin: 03/06/18 10:37 Dose: 10 mg Benztropine Mesylate (Cogentin) 2 mg PO DAILY [facility] Last Admin: 03/06/18 10:38 Dose: 2 mg Dextrose (Dextrose 50% Inj) 0 ml IV STAT PRN; Protocol PRN Reason: Hypoglycemia Protocol Dextrose (Glutose 15) 0 gm PO ONCE PRN; Protocol PRN Reason: Hypoglycemia Protocol Glimepiride (Amaryl) 4 mg PO ACB [facility] Last Admin: 03/06/18 08:12 Dose: 4 mg Glucagon (Glucagen Diagnostic Kit) 0 mg IM STAT PRN; Protocol PRN Reason: Hypoglycemia Protocol Haloperidol (Haldol) 5 mg PO BID [facility] Last Admin: 03/06/18 10:37 Dose: 5 mg Heparin Sodium (Porcine) (Heparin) 5,000 units SC Q8 [facility] Last Admin: 03/06/18 06:41 Dose: Not Given Dextrose (Dextrose 5% In Water 1000 Ml) 1,000 mls @ 0 mls/hr IV .Q0M PRN; Protocol PRN Reason: Hypoglycemia Protocol Insulin Glargine (Lantus) 25 unit SC HS [facility] Last Admin: 03/05/18 22:33 Dose: Not Given Insulin Human Regular (Novolin R) 0 unit SC ACHS [facility]; Protocol Last Admin: 03/06/18 12:03 Dose: Not Given Lisinopril (Zestril) 40 mg PO Q24H [facility] Last Admin: 03/05/18 14:33 Dose: Not Given Olanzapine (Zyprexa) 10 mg PO [facility] Last Admin: 03/05/18 22:32 Dose: 10 mg Pantoprazole Sodium (Protonix Ec Tab) 40 mg PO DAILY [facility] Last Admin: 03/06/18 10:38 Dose: 40 mg Pneumococcal Polyvalent Vaccine (Pneumovax 23 Vaccine) 0.5 ml IM .ONCE ONE Stop: 03/07/18 14:01 Trazodone HCl (Desyrel) 100 mg PO [facility] Last Admin: 03/05/18 22:31 Dose: 100 mg Zolpidem Tartrate (Ambien) 5 mg PO [facility] Last Admin: 03/05/18 22:31 Dose: 5 mg - Labs Labs: 03/06/18 07:05 03/06/18 07:05 - Constitutional Appears: Non-toxic, No Acute Distress - Head Exam Head Exam: NORMAL INSPECTION, NORMOCEPHALIC - Eye Exam Eye Exam: Normal appearance - ENT Exam ENT Exam: Mucous Membranes Moist, Normal Exam - Neck Exam Neck Exam: Full ROM, Normal Inspection - Respiratory Exam Respiratory Exam: Clear to Ausculation Bilateral, NORMAL BREATHING PATTERN - Cardiovascular Exam Cardiovascular Exam: REGULAR RHYTHM, RRR - GI/Abdominal Exam GI & Abdominal Exam: Distended, Soft - Extremities Exam Extremities Exam: Pedal Edema - Neurological Exam Neurological Exam: Awake - Psychiatric Exam Psychiatric exam: Agitated - Skin Skin Exam: Normal Color, Warm Assessment and Plan (1) Acute renal failure Status: Acute (2) Cellulitis of right leg Status: Acute (3) Hyperglycemia Status: Acute - Assessment and Plan (Free Text) Assessment: # BRIAN / hyperkalemia / azotemia requiring hd # acute psychosis # nephrotic syndrome # Question of henoch schonlein purpura on skin biopsy? # anemia # DM # HTN plan: refusing most meds and treatments. psych eval noted cause of brian unclear. Pt is a poor candidate for empiric pulse steroids - may exacerbate psychosis, hx of DKA, htn Not a candidate for renal biopsy as well. Known DM, probable underlying ckd. history unclear. Serology unremarkable so far. nl complements, hepatitis negative. very mildly pos MARKY. would get skin biopsy report done outside. maintain hd , next treatment tomorrow and then mwf add iv lasix dc lisinopril. needs permcath
--- NOTE | 2018-03-06 14:00 | CP.PCM.PN ---
Subjective - Date & Time of Evaluation Date of Evaluation: 03/06/18 Time of Evaluation: 13:53 - Subjective Subjective: Patient examined at bedside, sleeping deeply. Pt was irritated to be awoken and responded to my questions in Kyrgyz. Denies chest pain, SOB, abd pain, nausea, diarrhea, painful or itchy rash. Pt has ambrocio actively draining concentrated yellow/pink tinged urine. Objective - Vital Signs/Intake and Output Vital Signs (last 24 hours): Temp Pulse Resp BP Pulse Ox 98.2 F 106 H 20 156/96 H 94 L 03/06/18 08:00 03/06/18 12:58 03/06/18 08:00 03/06/18 08:00 03/06/18 08:00 Intake and Output: 03/06/18 03/06/18 06:59 18:59 Intake Total 120 Output Total 700 475 Balance -700 -355 - Medications Medications: Current Medications Amlodipine Besylate (Norvasc) 10 mg PO DAILY [facility] Last Admin: 03/06/18 10:37 Dose: 10 mg Benztropine Mesylate (Cogentin) 2 mg PO DAILY [facility] Last Admin: 03/06/18 10:38 Dose: 2 mg Dextrose (Dextrose 50% Inj) 0 ml IV STAT PRN; Protocol PRN Reason: Hypoglycemia Protocol Dextrose (Glutose 15) 0 gm PO ONCE PRN; Protocol PRN Reason: Hypoglycemia Protocol Glimepiride (Amaryl) 4 mg PO ACB [facility] Last Admin: 03/06/18 08:12 Dose: 4 mg Glucagon (Glucagen Diagnostic Kit) 0 mg IM STAT PRN; Protocol PRN Reason: Hypoglycemia Protocol Haloperidol (Haldol) 5 mg PO BID [facility] Last Admin: 03/06/18 10:37 Dose: 5 mg Heparin Sodium (Porcine) (Heparin) 5,000 units SC Q8 [facility] Last Admin: 03/06/18 06:41 Dose: Not Given Dextrose (Dextrose 5% In Water 1000 Ml) 1,000 mls @ 0 mls/hr IV .Q0M PRN; Protocol PRN Reason: Hypoglycemia Protocol Insulin Glargine (Lantus) 25 unit SC HS [facility] Last Admin: 03/05/18 22:33 Dose: Not Given Insulin Human Regular (Novolin R) 0 unit SC ACHS [facility]; Protocol Last Admin: 03/06/18 12:03 Dose: Not Given Lisinopril (Zestril) 40 mg PO Q24H [facility] Last Admin: 03/05/18 14:33 Dose: Not Given Olanzapine (Zyprexa) 10 mg PO [facility] Last Admin: 03/05/18 22:32 Dose: 10 mg Pantoprazole Sodium (Protonix Ec Tab) 40 mg PO DAILY [facility] Last Admin: 03/06/18 10:38 Dose: 40 mg Pneumococcal Polyvalent Vaccine (Pneumovax 23 Vaccine) 0.5 ml IM .ONCE ONE Stop: 03/07/18 14:01 Trazodone HCl (Desyrel) 100 mg PO [facility] Last Admin: 03/05/18 22:31 Dose: 100 mg Zolpidem Tartrate (Ambien) 5 mg PO [facility] Last Admin: 03/05/18 22:31 Dose: 5 mg - Labs Labs: 03/06/18 07:05 03/06/18 07:05 - Constitutional Appears: No Acute Distress, Agitated - Head Exam Head Exam: ATRAUMATIC, NORMAL INSPECTION, NORMOCEPHALIC - Eye Exam Eye Exam: Normal appearance - ENT Exam ENT Exam: Mucous Membranes Moist, Normal Exam - Neck Exam Neck Exam: Normal Inspection - Respiratory Exam Respiratory Exam: Clear to Ausculation Bilateral. absent: Rhonchi, Wheezes, NORMAL BREATHING PATTERN (labored breathing) - Cardiovascular Exam Cardiovascular Exam: Tachycardia, REGULAR RHYTHM, +S1, +S2. absent: Murmur - GI/Abdominal Exam GI & Abdominal Exam: Soft, Normal Bowel Sounds. absent: Distended, Tenderness - Exam Exam: Scrotal Swelling - Extremities Exam Extremities Exam: Pedal Edema (B/L LE edema). absent: Normal Inspection (Left great toe absent) - Psychiatric Exam Psychiatric exam: Agitated - Skin Skin Exam: Dry, Petechiae, Rash (B/L LE erythematous macular lesions.), Warm Assessment and Plan - Assessment and Plan (Free Text) Assessment: 52 year old male w/ a PMHx of DM, and reported hx of HSP diagnosed at [facility] in January, admitted with fluid overload 2/[address] Mckeon, pt will need a permacath placed for HD. Pt to be dialyzed today again. She will try to get [facility] records. -renal u/s 03/05 shows b/l renal cysts and evidence of medical renal dz -ambrocio in place -Nephro consult Dr. Houston -sx consult, Dr. Seo for permacath HSP -hold steroid tx until bx confirmation -awaiting skin bx results from [place]. Dyspnea -CXR 03/05 shows pulm vasc congestion and atelectasis/pna -Pulm consult Dr. Mckinney DM2 -hgb a1c 7.9 -lantus 25u hs -ISS -glimepiride 4mg acb HTN -norvasc 10mg po -hydralazine 25mg po bid Thrombocytopenia -354-->[address] Leyva has declared pt incapable of making his own medical decisions. -cogentin 2mg po -ambien 5mg po hs -trazodone 100mf po hs -haldol 5mg po bid -zyprexa 10mg po hs -psych consult Dr. Leyva Ppx -heparin 5000sc q8 -protonix 40mg po
--- NOTE | 2018-03-06 15:45 | CP.PCM.CON ---
History of Present Illness - History of Present Illness History of Present Illness: Vascular Surgery Consult Re: Permacath placement for HD HPI: 52M presented to the ED c/o SOB x 2 weeks. Pt was seen several days prior by PMD and found to have a creatinine of 2.6. Pt reported worsening SOB and generalized edema, saw PMD on day of admission, who sent patient to the ED. Pt was seen in [place] ED last month for rash, with a Dx of HSP. He was also told at that he has renal disease. He had a temporary cath placed by the vascular surgery team in the ED. Currently, pt is without complaint and is declining all medical treatments, however Psych has deemed him incapable of making his own medical decisions. Denies fever, chills, chest pain, SOB, nausea, emesis, abdominal pain, diarrhea, dysuria, numbness, tingling. PMH: DM2, HS purpura PSH: toe amputation FH: non contributory SH: No tobacco, EtOH, or drug use. All: NKDA Meds: see MAR Review of Systems - Review of Systems All systems: reviewed and no additional remarkable complaints except (as per HPI) Past Patient History - Past Medical History & Family History Past Medical History?: Yes - Past Social History Smoking Status: Never Smoked - CARDIAC Hx Hypertension: Yes - PULMONARY Hx Respiratory Disorders: No - NEUROLOGICAL Hx Neurological Disorder: Yes Hx Meningitis: Yes (at age 13) - HEENT Hx HEENT Problems: No - RENAL Hx Chronic Kidney Disease: No Date of Last Dialysis Treatment: 03/04/18 - ENDOCRINE/METABOLIC Hx Diabetes Mellitus Type 2: Yes - HEMATOLOGICAL/ONCOLOGICAL Hx Blood Disorders: No - INTEGUMENTARY Hx Dermatological Problems: Yes Other/Comment: Diabetic foot ulcers and Pt has red blister like rash on Chest and BLE - MUSCULOSKELETAL/RHEUMATOLOGICAL Hx Musculoskeletal Disorders: Yes Hx Falls: Yes (Pts mother said he falls alot) - GASTROINTESTINAL Hx Gastrointestinal Disorders: No - GENITOURINARY/GYNECOLOGICAL Hx Genitourinary Disorders: No - PSYCHIATRIC Hx Depression: Yes Hx Substance Use: No - SURGICAL HISTORY Hx Surgeries: Yes Other/Comment: toe removal - ANESTHESIA Hx Anesthesia: Yes Meds Allergies/Adverse Reactions: Allergies Allergy/AdvReac Type Severity Reaction Status Date / Time No Known Allergies Allergy Verified 03/04/18 16:16 - Medications Medications: Current Medications Amlodipine Besylate (Norvasc) 10 mg PO DAILY [facility] Last Admin: 03/06/18 10:37 Dose: 10 mg Benztropine Mesylate (Cogentin) 2 mg PO DAILY [facility] Last Admin: 03/06/18 10:38 Dose: 2 mg Dextrose (Dextrose 50% Inj) 0 ml IV STAT PRN; Protocol PRN Reason: Hypoglycemia Protocol Dextrose (Glutose 15) 0 gm PO ONCE PRN; Protocol PRN Reason: Hypoglycemia Protocol Furosemide (Lasix) 40 mg IVP DAILY [facility] Last Admin: 03/06/18 15:07 Dose: 40 mg Glimepiride (Amaryl) 4 mg PO ACB [facility] Last Admin: 03/06/18 08:12 Dose: 4 mg Glucagon (Glucagen Diagnostic Kit) 0 mg IM STAT PRN; Protocol PRN Reason: Hypoglycemia Protocol Haloperidol (Haldol) 5 mg PO BID [facility] Last Admin: 03/06/18 10:37 Dose: 5 mg Heparin Sodium (Porcine) (Heparin) 5,000 units SC Q8 [facility] Last Admin: 03/06/18 14:02 Dose: Not Given Hydralazine HCl (Apresoline) 25 mg PO BID [facility] Dextrose (Dextrose 5% In Water 1000 Ml) 1,000 mls @ 0 mls/hr IV .Q0M PRN; Protocol PRN Reason: Hypoglycemia Protocol Insulin Glargine (Lantus) 25 unit SC [facility] Last Admin: 03/05/18 22:33 Dose: Not Given Insulin Human Regular (Novolin R) 0 unit SC [facility]; Protocol Last Admin: 03/06/18 12:03 Dose: Not Given Olanzapine (Zyprexa) 10 mg PO [facility] Last Admin: 03/05/18 22:32 Dose: 10 mg Pantoprazole Sodium (Protonix Ec Tab) 40 mg PO DAILY [facility] Last Admin: 03/06/18 10:38 Dose: 40 mg Pneumococcal Polyvalent Vaccine (Pneumovax 23 Vaccine) 0.5 ml IM .ONCE ONE Stop: 03/07/18 14:01 Trazodone HCl (Desyrel) 100 mg PO [facility] Last Admin: 03/05/18 22:31 Dose: 100 mg Zolpidem Tartrate (Ambien) 5 mg PO [facility] Last Admin: 03/05/18 22:31 Dose: 5 mg Physical Exam - Constitutional Appears: No Acute Distress, Chronically Ill - Head Exam Head Exam: ATRAUMATIC, NORMOCEPHALIC - Eye Exam Eye Exam: EOMI. absent: Conjunctival injection - Respiratory Exam Respiratory Exam: NORMAL BREATHING PATTERN. absent: Respiratory Distress - Cardiovascular Exam Cardiovascular Exam: Tachycardia, +S1, +S2 - GI/Abdominal Exam GI & Abdominal Exam: Soft. absent: Distended, Tenderness - Rectal Exam Rectal Exam: Deferred - Extremities Exam Extremities exam: Positive for: pedal edema. Negative for: calf tenderness Additional comments: L femoral shiley - Back Exam Back exam: absent: CVA tenderness (L), CVA tenderness (R) - Neurological Exam Neurological exam: Alert - Skin Skin Exam: Dry, Warm Results - Vital Signs Recent Vital Signs: Last Vital Signs Temp 98.2 F 03/06/18 08:00 Pulse 106 H 03/06/18 12:58 Resp 20 03/06/18 08:00 BP 114/71 03/06/18 15:07 Pulse Ox 94 L 03/06/18 08:00 - Labs Result Diagrams: 03/06/18 07:05 03/06/18 07:05 Labs: Laboratory Results - last 24 hr 03/05/18 03/05/18 03/05/18 08:23 16:59 16:59 WBC RBC Hgb Hct MCV MCH MCHC RDW Plt Count MPV Neut % (Auto) Lymph % (Auto) [place] % (Auto) Eos % (Auto) Baso % (Auto) Neut # (Auto) Lymph # (Auto) [place] # (Auto) Eos # (Auto) Baso # (Auto) Sodium Potassium Chloride Carbon Dioxide Anion Gap BUN Creatinine Est GFR ( Amer) Est GFR (Non-Af Amer) POC Glucose (mg/dL) Random Glucose Hemoglobin A1c Calcium Phosphorus Magnesium Total Bilirubin AST ALT Alkaline Phosphatase Total Protein Albumin Globulin Albumin/Globulin Ratio Proteinase 3 (PR3) <1.0 Myeloperoxidase Ab <1.0 Hepatitis A IgM Ab Negative Hep Bs Antigen Negative Hep B Core IgM Ab Negative Hepatitis C Antibody Negative Negative 03/05/18 03/05/18 03/05/18 17:07 19:31 21:58 WBC RBC Hgb Hct MCV MCH MCHC RDW Plt Count MPV Neut % (Auto) Lymph % (Auto) [place] % (Auto) Eos % (Auto) Baso % (Auto) Neut # (Auto) Lymph # (Auto) [place] # (Auto) Eos # (Auto) Baso # (Auto) Sodium Potassium Chloride Carbon Dioxide Anion Gap BUN Creatinine Est GFR ( Amer) Est GFR (Non-Af Amer) POC Glucose (mg/dL) 164 H 142 H 124 H Random Glucose Hemoglobin A1c Calcium Phosphorus Magnesium Total Bilirubin AST ALT Alkaline Phosphatase Total Protein Albumin Globulin Albumin/Globulin Ratio Proteinase 3 (PR3) Myeloperoxidase Ab Hepatitis A IgM Ab Hep Bs Antigen Hep B Core IgM Ab Hepatitis C Antibody 03/06/18 03/06/18 03/06/18 06:30 07:05 07:05 WBC 9.4 RBC 3.20 L Hgb 9.3 L Hct 28.2 L MCV 88.1 MCH 29.0 MCHC 32.9 L RDW 15.0 H Plt Count 268 MPV 7.3 Neut % (Auto) 72.0 Lymph % (Auto) 15.3 L [place] % (Auto) 9.0 Eos % (Auto) 3.1 Baso % (Auto) 0.6 Neut # (Auto) 6.8 Lymph # (Auto) 1.4 [place] # (Auto) 0.9 H Eos # (Auto) 0.3 Baso # (Auto) 0.1 Sodium 141 Potassium 4.7 Chloride 106 Carbon Dioxide 22 Anion Gap 18 BUN 75 H Creatinine 5.7 H Est GFR ( Amer) 13 Est GFR (Non-Af Amer) 10 POC Glucose (mg/dL) 197 H Random Glucose 180 H Hemoglobin A1c Calcium 7.7 L Phosphorus 6.7 H Magnesium 2.3 Total Bilirubin 0.4 AST 11 L ALT 14 L D Alkaline Phosphatase 74 Total Protein 6.1 L Albumin 2.7 L Globulin 3.4 Albumin/Globulin Ratio 0.8 L Proteinase 3 (PR3) Myeloperoxidase Ab Hepatitis A IgM Ab Hep Bs Antigen Hep B Core IgM Ab Hepatitis C Antibody 03/06/18 03/06/18 07:05 11:40 WBC RBC Hgb Hct MCV MCH MCHC RDW Plt Count MPV Neut % (Auto) Lymph % (Auto) [place] % (Auto) Eos % (Auto) Baso % (Auto) Neut # (Auto) Lymph # (Auto) [place] # (Auto) Eos # (Auto) Baso # (Auto) Sodium Potassium Chloride Carbon Dioxide Anion Gap BUN Creatinine Est GFR ( Amer) Est GFR (Non-Af Amer) POC Glucose (mg/dL) 86 Random Glucose Hemoglobin A1c 7.9 H Calcium Phosphorus Magnesium Total Bilirubin AST ALT Alkaline Phosphatase Total Protein Albumin Globulin Albumin/Globulin Ratio Proteinase 3 (PR3) Myeloperoxidase Ab Hepatitis A IgM Ab Hep Bs Antigen Hep B Core IgM Ab Hepatitis C Antibody Assessment & Plan - Assessment and Plan (Free Text) Assessment: 52M with Acute renal failure requiring hemodialysis Plan: Permacath placement tomorrow in [place] NPO p MN IVF starting MN Hold AM heparin D/W Dr. Rayray Williamson PGY4
[2018-03-06 16:39] LABS: INR 1.2; PROTHROMBIN TIME 12.7 SECONDS (9.7-12.2)
[2018-03-06] MEDS: (Lantus) Insulin Glargine, Recombinant SC SCH (22:05)
[2018-03-07] MEDS: (Novolin R) Insulin Human Regular 100 units/ml vial SC SCH ×4 (07:45→21:55)
[2018-03-07 07:49] LABS: INR 1.2; PROTHROMBIN TIME 12.8 SECONDS (9.7-12.2)
--- NOTE | 2018-03-07 09:23 | CP.PCM.PN ---
Subjective - Date & Time of Evaluation Date of Evaluation: 03/07/18 Time of Evaluation: 07:00 - Subjective Subjective: PGY-[address] Pittman Patient is seen and examined at bedside. Patient asks when can he go home. Patient denies any pain, fever, chills, chest pain, shortness of breath, nausea or vomiting. Patient is ambulating and currently NPO at this time. Urine output at time of encounter is 300. 24 hours urine output was 2100. Patient was told he will be going for a permacath placement today. Objective - Vital Signs/Intake and Output Vital Signs (last 24 hours): Temp Pulse Resp BP Pulse Ox 98.0 F 99 H 18 149/93 H 97 03/07/18 07:00 03/07/18 07:50 03/07/18 07:00 03/07/18 07:00 03/07/18 07:00 Intake and Output: 03/07/18 03/07/18 06:59 18:59 Output Total 1050 Balance -1050 - Medications Medications: Current Medications Amlodipine Besylate (Norvasc) 10 mg PO DAILY [facility] Last Admin: 03/06/18 10:37 Dose: 10 mg Benztropine Mesylate (Cogentin) 2 mg PO DAILY [facility] Last Admin: 03/06/18 10:38 Dose: 2 mg Dextrose (Dextrose 50% Inj) 0 ml IV STAT PRN; Protocol PRN Reason: Hypoglycemia Protocol Dextrose (Glutose 15) 0 gm PO ONCE PRN; Protocol PRN Reason: Hypoglycemia Protocol Furosemide (Lasix) 40 mg IVP DAILY [facility] Last Admin: 03/06/18 15:07 Dose: 40 mg Glimepiride (Amaryl) 4 mg PO ACB [facility] Last Admin: 03/06/18 08:12 Dose: 4 mg Glucagon (Glucagen Diagnostic Kit) 0 mg IM STAT PRN; Protocol PRN Reason: Hypoglycemia Protocol Haloperidol (Haldol) 5 mg PO BID [facility] Last Admin: 03/06/18 18:47 Dose: 5 mg Heparin Sodium (Porcine) (Heparin) 5,000 units SC Q8 [facility] Last Admin: 03/07/18 06:17 Dose: Not Given Hydralazine HCl (Apresoline) 25 mg PO BID [facility] Last Admin: 03/06/18 18:48 Dose: 25 mg Dextrose (Dextrose 5% In Water 1000 Ml) 1,000 mls @ 0 mls/hr IV .Q0M PRN; Protocol PRN Reason: Hypoglycemia Protocol Insulin Glargine (Lantus) 25 unit SC [facility] Last Admin: 03/06/18 22:05 Dose: Not Given Insulin Human Regular (Novolin R) 0 unit SC ACHS [facility]; Protocol Last Admin: 03/07/18 07:45 Dose: Not Given Olanzapine (Zyprexa) 10 mg PO [facility] Last Admin: 03/06/18 21:59 Dose: 10 mg Pantoprazole Sodium (Protonix Ec Tab) 40 mg PO DAILY [facility] Last Admin: 03/06/18 10:38 Dose: 40 mg Pneumococcal Polyvalent Vaccine (Pneumovax 23 Vaccine) 0.5 ml IM .ONCE ONE Stop: 03/07/18 14:01 Trazodone HCl (Desyrel) 100 mg PO [facility] Last Admin: 03/06/18 21:59 Dose: 100 mg Zolpidem Tartrate (Ambien) 5 mg PO [facility] Last Admin: 03/06/18 21:59 Dose: 5 mg - Labs Labs: 03/06/18 07:05 03/06/18 07:05 PT 12.8 SECONDS (9.7-12.2) H 03/07/18 07:37 INR 1.2 03/07/18 07:37 APTT 33 SECONDS (21-34) 03/07/18 07:37 - Constitutional Appears: Non-toxic, No Acute Distress - Head Exam Head Exam: ATRAUMATIC, NORMAL INSPECTION, NORMOCEPHALIC - Eye Exam Eye Exam: EOMI, Normal appearance - ENT Exam ENT Exam: Mucous Membranes Moist, Normal Exam - Neck Exam Neck Exam: Full ROM, Normal Inspection - Respiratory Exam Respiratory Exam: Clear to Ausculation Bilateral, NORMAL BREATHING PATTERN. absent: Rales, Rhonchi, Wheezes - Cardiovascular Exam Cardiovascular Exam: REGULAR RHYTHM, +S1, +S2 - GI/Abdominal Exam GI & Abdominal Exam: Distended, Soft, Normal Bowel Sounds. absent: Guarding, Tenderness - Extremities Exam Extremities Exam: Full ROM, Normal Capillary Refill, Normal Inspection. absent: Calf Tenderness, Tenderness - Back Exam Back Exam: NORMAL INSPECTION - Neurological Exam Neurological Exam: Alert, Awake Assessment and Plan - Assessment and Plan (Free Text) Plan: BRIAN -renal u/s 03/05 shows b/l renal cysts and evidence of medical renal dz -ambrocio in place -Nephro consult Dr. Mckeon - Based on skin biopsy report, probable renal involvement with vasculitis. - recommends renal biopsy one psychosis improves - pulse iv solumedrol to be given empirically - check dsDNA - D/C PPI, used H2 erica - next HD saturday, maintain HD -sx consult, Dr. 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 Mckinney - Pulmonary edema and pleural effusion secondary to renal failure. Hemodialysis. Follow-up chest x-ray - CXR 03/07 - Right sided dialysis catheter terminates in right atrium. Interval worsening layering pleural effusions and development of presumable alveolar pulmonary edema, worse in the right lung DM2 -hgb a1c 7.9 -lantus 25u hs -ISS -glimepiride 4mg acb HTN -norvasc 10mg po -hydralazine 25mg po bid Thrombocytopenia -354-->[address] Leyva has declared pt incapable of making his own medical decisions. -cogentin 2mg po -ambien 5mg po hs -trazodone 100mf po BID -haldol 5mg po bid -zyprexa 10mg po hs -psych consult Dr. Leyva Ppx -heparin 5000sc q8 -pepcid 20mg PO daily Plan discussed with Dr Pittman. Med management as per Dr Zain Crawford, PGY-1
--- NOTE | 2018-03-07 11:54 | CP.PCM.PN ---
Subjective - Date & Time of Evaluation Date of Evaluation: 03/07/18 Time of Evaluation: 11:52 - Subjective Subjective: seen in hd estimated uf 3L plan for permcath noted pt refuses to answer questions, ros cannot be obtained skin biopsy (done 01/28/18) report noted. Leukocytoclastic IgA vasculitis. Objective - Vital Signs/Intake and Output Vital Signs (last 24 hours): Temp Pulse Resp BP Pulse Ox 97.6 F 105 H 18 124/76 97 03/07/18 08:50 03/07/18 08:50 03/07/18 08:50 03/07/18 11:00 03/07/18 07:00 Intake and Output: 03/07/18 03/07/18 06:59 18:59 Output Total 1050 Balance -1050 - Medications Medications: Current Medications Amlodipine Besylate (Norvasc) 10 mg PO DAILY [facility] Last Admin: 03/06/18 10:37 Dose: 10 mg Benztropine Mesylate (Cogentin) 2 mg PO DAILY [facility] Last Admin: 03/06/18 10:38 Dose: 2 mg Dextrose (Dextrose 50% Inj) 0 ml IV STAT PRN; Protocol PRN Reason: Hypoglycemia Protocol Dextrose (Glutose 15) 0 gm PO ONCE PRN; Protocol PRN Reason: Hypoglycemia Protocol Epoetin Douglas (Procrit) 6,000 u IV MWF [facility] Furosemide (Lasix) 40 mg IVP DAILY [facility] Last Admin: 03/06/18 15:07 Dose: 40 mg Glimepiride (Amaryl) 4 mg PO ACB [facility] Last Admin: 03/06/18 08:12 Dose: 4 mg Glucagon (Glucagen Diagnostic Kit) 0 mg IM STAT PRN; Protocol PRN Reason: Hypoglycemia Protocol Haloperidol (Haldol) 5 mg PO BID [facility] Last Admin: 03/06/18 18:47 Dose: 5 mg Heparin Sodium (Porcine) (Heparin) 5,000 units SC Q8 [facility] Last Admin: 03/07/18 06:17 Dose: Not Given Hydralazine HCl (Apresoline) 25 mg PO BID [facility] Last Admin: 03/06/18 18:48 Dose: 25 mg Dextrose (Dextrose 5% In Water 1000 Ml) 1,000 mls @ 0 mls/hr IV .Q0M PRN; Protocol PRN Reason: Hypoglycemia Protocol Insulin Glargine (Lantus) 25 unit SC [facility] Last Admin: 03/06/18 22:05 Dose: Not Given Insulin Human Regular (Novolin R) 0 unit SC [facility]; Protocol Last Admin: 03/07/18 07:45 Dose: Not Given Olanzapine (Zyprexa) [address] [facility] Last Admin: 03/06/18 21:59 Dose: 10 mg Pantoprazole Sodium (Protonix Ec Tab) 40 mg PO DAILY [facility] Last Admin: 03/06/18 10:38 Dose: 40 mg Pneumococcal Polyvalent Vaccine (Pneumovax 23 Vaccine) 0.5 ml IM .ONCE ONE Stop: 03/07/18 14:01 Trazodone HCl (Desyrel) [address] [facility] Last Admin: 03/06/18 21:59 Dose: 100 mg Zolpidem Tartrate (Ambien) [address] [facility] Last Admin: 03/06/18 21:59 Dose: 5 mg - Labs Labs: 03/06/18 07:05 03/06/18 07:05 PT 12.8 SECONDS (9.7-12.2) H 03/07/18 07:37 INR 1.2 03/07/18 07:37 APTT 33 SECONDS (21-34) 03/07/18 07:37 - Constitutional Appears: No Acute Distress (obese), Chronically Ill - Head Exam Head Exam: NORMAL INSPECTION, NORMOCEPHALIC - Eye Exam Eye Exam: Normal appearance, PERRL - ENT Exam ENT Exam: Mucous Membranes Dry, Normal Exam - Neck Exam Neck Exam: Full ROM, Normal Inspection - Respiratory Exam Respiratory Exam: Clear to Ausculation Bilateral, NORMAL BREATHING PATTERN - Cardiovascular Exam Cardiovascular Exam: REGULAR RHYTHM, RRR - GI/Abdominal Exam GI & Abdominal Exam: Distended, Soft - Extremities Exam Extremities Exam: Pedal Edema (lt femoral hd catheter) - Neurological Exam Neurological Exam: Awake - Psychiatric Exam Psychiatric exam: Agitated - Skin Skin Exam: Dry Assessment and Plan (1) Acute renal failure Status: Acute (2) Cellulitis of right leg Status: Acute (3) Hyperglycemia Status: Acute - Assessment and Plan (Free Text) Assessment: # BRIAN / hyperkalemia / azotemia requiring hd # acute psychosis # nephrotic syndrome # 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 Pt needs a renal biopsy, will try to arrange one for next week once psychosis improves. Pulse iv solumedrol to be given empirically check dsDNA, mildly positive lazara. other serology negative so far dc PPI, use h2 erica recommend rheumatology evaluation permcath today, maintain hd, next treatment on saturday
[2018-03-07] MEDS: Epoetin Alfa Dialysis 3000 UNIT/ML Inj IV SCH (12:11)
[2018-03-07] MEDS ORDERED: methylPREDNISolone 1 GM in Sodium Chloride 0.9% 250 ML IV ONE ×2 (12:15→18:15)
[2018-03-07 12:16] LABS: BASO # 0.1 K/uL (0.0-0.2); BASO % 1.2 % (0.0-2.0); EOS # 0.3 K/uL (0.0-0.7); EOS % 3.7 % (0.0-4.0); LYMPH # 1.1 K/uL (1.0-4.3); MEAN CELL VOLUME 87.5 fL (80.0-94.0); MEAN CORPUSCULAR HGB CONC 33.2 g/dL (33.0-37.0); MEAN PLATELET VOLUME 6.8 fL (7.2-11.7); MONO # 0.9 K/uL (0.0-0.8); MONO % 12.3 % (0.0-10.0); NEUT # 5.2 K/uL (1.8-7.0); NEUT % 68.8 % (50.0-75.0); RBC 3.09 Mil/uL (4.40-5.90); RED CELL DISTRIBUTION WIDTH 14.8 % (11.5-14.5); WHITE BLOOD COUNT 7.6 K/uL (4.8-10.8)
[2018-03-07] MEDS ORDERED: Lidocaine Hydrochloride 15 ML INJ ONE (12:29)
[2018-03-07] MEDS ORDERED: HEPARIN-NS 5,000 UNITS/500 ML 5,000 UNIT/500 ML BAG IV ONE (12:30)
[2018-03-07] MEDS ORDERED: Midazolam 2 MG/2 ML VIAL ONE ×2 (12:41→13:22)
[2018-03-07] MEDS ORDERED: ceFAZolin 1 gm in NS 1 GM/100 ML BAG IVPB ONE (12:51)
--- NOTE | 2018-03-07 13:39 | PCM.SURG1 ---
Surgeon's Initial Post Op Note - Surgeon's Notes Surgeon: Dr. Seo Inspector Hairspring: Shraddha Vazquez, PGY2; Yodit Toussaint OMS3 Type of Anesthesia: IV Sedation, Local Pre-Operative Diagnosis: end stage renal disease Operative Findings: normal RIJ vein anatomy observed by ultrasound, correct position of the permacath confirmed by flouroscopy Post-Operative Diagnosis: same Operation Performed: tunneled hemodialysis permacatheter insertion right internal jugular vein Specimen/Specimens Removed: none Estimated Blood Loss: EBL {In ML}: 35 Blood Products Given: N/A Drains Used: No Drains Post-Op Condition: Fair Date of Surgery/Procedure: 03/07/18 Time of Surgery/Procedure: 12:30
--- NOTE | 2018-03-07 13:40 | RAD ---
Date of service: 03/07/2018 PROCEDURE: Intraoperative Fluoroscopy. HISTORY: RENAL FAILURE FINDINGS: Fluoroscopic assistance was provided. Fluoroscopy time = 11 sec. Radiation dose = 0.94 mGy. Please refer to the operative report from [facility].
[2018-03-07] MEDS ORDERED: HYDROmorphone 0.5 mg/0.5 ml ISec IVP PRN (13:47)
[2018-03-07] MEDS ORDERED: Pneumococcal 23-Valent Vaccine IM ONE (14:00)
--- NOTE | 2018-03-07 14:26 | RAD ---
Date of service: 03/07/2018 HISTORY: s/p right IJ permacath insertion COMPARISON: 03/05/2018. FINDINGS: Right-sided dialysis catheter terminates in the right atrium. LUNGS: The lungs are well inflated. There is interval development of diffuse haziness in the lungs, worse on the right. PLEURA: Bilateral pleural effusions, no pneumothorax apparent. CARDIOVASCULAR: Normal. OSSEOUS STRUCTURES: No significant abnormalities. VISUALIZED UPPER ABDOMEN: Normal. OTHER FINDINGS: None. IMPRESSION: Right-sided dialysis catheter terminates in the right atrium. Interval worsening layering pleural effusions and development of presumable alveolar pulmonary edema, worse in the right lung.
[2018-03-07] MEDS: Sodium Chloride 0.9% 1,000 ML IV SCH (15:10)
--- NOTE | 2018-03-07 17:34 | CP.PCM.CON ---
History of Present Illness - History of Present Illness History of Present Illness: Patient is a 52 year old male with a PMHx of DM Type II and recent diagnosis of Henoch-Schonlein Purpura who presented complaining of SOB for the past few weeks. Patient's SOB worsened. Also admits to generalized swelling. Shante gurrola was recently by Dr. Pittman and was found to have elevated Cr of 2.6. CXR showed - Right lower lobe infiltrate with right pleural effusion. PMHx: DM Type II, HSP Surgical Hx: Left great toe amputation, HD catheter placed (03/04) Meds: Insulin Fam Hx: unknown Allergies: NKDA Review of Systems - Review of Systems Systems not reviewed;Unavailable: Uncooperative Past Patient History - Past Medical History & Family History Past Medical History?: Yes - Past Social History Smoking Status: Never Smoked - CARDIAC Hx Hypertension: Yes - PULMONARY Hx Respiratory Disorders: No - NEUROLOGICAL Hx Neurological Disorder: Yes Hx Meningitis: Yes (at age 13) - HEENT Hx HEENT Problems: No - RENAL Hx Chronic Kidney Disease: No Date of Last Dialysis Treatment: 03/04/18 - ENDOCRINE/METABOLIC Hx Diabetes Mellitus Type 2: Yes - HEMATOLOGICAL/ONCOLOGICAL Hx Blood Disorders: No - INTEGUMENTARY Hx Dermatological Problems: Yes Other/Comment: Diabetic foot ulcers and Pt has red blister like rash on Chest and BLE - MUSCULOSKELETAL/RHEUMATOLOGICAL Hx Musculoskeletal Disorders: Yes Hx Falls: Yes (Pts mother said he falls alot) - GASTROINTESTINAL Hx Gastrointestinal Disorders: No - GENITOURINARY/GYNECOLOGICAL Hx Genitourinary Disorders: No - PSYCHIATRIC Hx Depression: Yes Hx Substance Use: No - SURGICAL HISTORY Hx Surgeries: Yes Other/Comment: toe removal - ANESTHESIA Hx Anesthesia: Yes Meds Allergies/Adverse Reactions: Allergies Allergy/AdvReac Type Severity Reaction Status Date / Time No Known Allergies Allergy Verified 03/04/18 16:16 - Medications Medications: Current Medications Amlodipine Besylate (Norvasc) 10 mg PO DAILY [facility] Last Admin: 03/07/18 10:00 Dose: Not Given Benztropine Mesylate (Cogentin) 2 mg PO DAILY [facility] Last Admin: 03/07/18 10:00 Dose: Not Given Dextrose (Dextrose 50% Inj) 0 ml IV STAT PRN; Protocol PRN Reason: Hypoglycemia Protocol Dextrose (Glutose 15) 0 gm PO ONCE PRN; Protocol PRN Reason: Hypoglycemia Protocol Epoetin Douglas (Procrit) 6,000 unit IV MWF [facility] Last Admin: 03/07/18 12:11 Dose: 6,000 unit Famotidine (Pepcid) 20 mg PO DAILY [facility] Furosemide (Lasix) 40 mg IVP DAILY [facility] Last Admin: 03/07/18 10:00 Dose: Not Given Glimepiride (Amaryl) 4 mg PO ACB [facility] Last Admin: 03/07/18 10:00 Dose: Not Given Glucagon (Glucagen Diagnostic Kit) 0 mg IM STAT PRN; Protocol PRN Reason: Hypoglycemia Protocol Haloperidol (Haldol) 5 mg PO BID [facility] Last Admin: 03/07/18 10:00 Dose: Not Given Heparin Sodium (Porcine) (Heparin) 5,000 units SC Q8 [facility] Last Admin: 03/07/18 06:17 Dose: Not Given Hydralazine HCl (Apresoline) 25 mg PO BID [facility] Last Admin: 03/07/18 10:00 Dose: Not Given Dextrose (Dextrose 5% In Water 1000 Ml) 1,000 mls @ 0 mls/hr IV .Q0M PRN; Protocol PRN Reason: Hypoglycemia Protocol Sodium Chloride (Sodium Chloride 0.9%) 1,000 mls @ 75 mls/hr IV .[id number] [facility] Insulin Glargine (Lantus) 25 unit SC [facility] Last Admin: 03/06/18 22:05 Dose: Not Given Insulin Human Regular (Novolin R) 0 unit SC ACHS [facility]; Protocol Last Admin: 03/07/18 11:30 Dose: Not Given Olanzapine (Zyprexa) 10 mg PO [facility] Last Admin: 03/06/18 21:59 Dose: 10 mg Trazodone HCl (Desyrel) 100 mg PO HS [facility] Last Admin: 03/06/18 21:59 Dose: 100 mg Zolpidem Tartrate (Ambien) 5 mg PO [facility] Last Admin: 03/06/18 21:59 Dose: 5 mg Physical Exam - Head Exam Head Exam: ATRAUMATIC, NORMOCEPHALIC - ENT Exam ENT Exam: Mucous Membranes Moist - Neck Exam Neck exam: Positive for: Normal Inspection - Respiratory Exam Respiratory Exam: Decreased Breath Sounds, Rales - Cardiovascular Exam Cardiovascular Exam: REGULAR RHYTHM Results - Vital Signs Recent Vital Signs: Last Vital Signs Temp 97.3 F L 03/07/18 15:00 Pulse 70 03/07/18 15:05 Resp 20 03/07/18 15:00 BP 121/61 03/07/18 15:00 Pulse Ox 95 03/07/18 15:00 - Labs Result Diagrams: 03/07/18 12:11 03/06/18 07:05 Labs: Laboratory Results - last 24 hr 03/06/18 03/07/18 03/07/18 21:07 06:24 07:37 WBC RBC Hgb Hct MCV MCH MCHC RDW Plt Count MPV Neut % (Auto) Lymph % (Auto) Roosevelt % (Auto) Eos % (Auto) Baso % (Auto) Neut # (Auto) Lymph # (Auto) Roosevelt # (Auto) Eos # (Auto) Baso # (Auto) PT 12.8 H INR 1.2 APTT 33 POC Glucose (mg/dL) 140 H 179 H 03/07/18 03/07/18 03/07/18 11:03 12:11 16:59 WBC 7.6 RBC 3.09 L Hgb 9.0 L Hct 27.0 L MCV 87.5 MCH 29.0 MCHC 33.2 RDW 14.8 H Plt Count 252 MPV 6.8 L Neut % (Auto) 68.8 Lymph % (Auto) 14.0 L Roosevelt % (Auto) 12.3 H Eos % (Auto) 3.7 Baso % (Auto) 1.2 Neut # (Auto) 5.2 Lymph # (Auto) 1.1 Roosevelt # (Auto) 0.9 H Eos # (Auto) 0.3 Baso # (Auto) 0.1 PT INR APTT POC Glucose (mg/dL) 116 H 199 H Assessment & Plan (1) Pulmonary edema Status: Acute Comment: Pulmonary edema and pleural effusion secondary to renal failure. Hemodialysis. Follow-up chest x-ray (2) Acute renal failure Status: Acute
[2018-03-07] MEDS ORDERED: MethylPREDNISolone 1 gm Vial IV ONE (18:00)
[2018-03-07] MEDS: (Lantus) Insulin Glargine, Recombinant SC SCH (21:56)
--- NOTE | 2018-03-07 21:58 | OP ---
PROCEDURE DATE: 03/07/2018 PREOPERATIVE DIAGNOSIS: Renal failure. POSTOPERATIVE DIAGNOSIS: Renal failure. PROCEDURE: Placement of Perm-A-Cath, right jugular vein with C-arm fluoroscopy, ultrasound-guided puncture, and micropuncture technique. SURGEON: Kong Seo Jr., MD MEDICATION ASSISTANT: None. ANESTHESIOLOGIST: Fabio Sahni CRNA ANESTHESIA: Local with sedation. INDICATIONS: The patient is a middle-aged man with renal insufficiency, requires a Perm-A-Cath. OPERATIVE FINDINGS: The catheter was inserted uneventfully via the jugular vein. DESCRIPTION OF PROCEDURE: The patient was given local anesthesia. Using ultrasound guidance and micropuncture technique, the right jugular vein was punctured. Under fluoroscopic control, guidewire was advanced centrally. Sheath dilator was passed over this, and the catheter was positioned in the superior vena cava right atrium. It originated on the right chest wall, went to jugular vein, and terminated in the superior vena cava right atrium. This was flushed with heparinized saline with good return, secured to the skin. Hemostasis was obtained. Ultrasound of the neck showed the vein was 18 mm in diameter with normal compressibility and no intraluminal thrombosis. Antibiotics were given at the initiation of the procedure. Kong Seo Jr., MD
[2018-03-08] MEDS: (Novolin R) Insulin Human Regular 100 units/ml vial SC SCH ×4 (06:47→22:03)
[2018-03-08] MEDS: Sodium Chloride 0.9% 1,000 ML IV SCH ×2 (06:51→17:04)
[2018-03-08] MEDS ORDERED: MethylPREDNISolone 1 gm Vial IV ONE (11:32)
--- NOTE | 2018-03-08 11:32 | CP.PCM.PN ---
Subjective - Date & Time of Evaluation Date of Evaluation: 03/08/18 Time of Evaluation: 11:29 - Subjective Subjective: seen in echo s/p permcath uncooperative with medicines tangential speech received solumedrol last night unable to obtain ROS due to above Objective - Vital Signs/Intake and Output Vital Signs (last 24 hours): Temp Pulse Resp BP Pulse Ox 98.8 F 102 H 20 178/78 H 95 03/08/18 07:00 03/08/18 07:00 03/08/18 07:00 03/08/18 10:31 03/08/18 07:00 Intake and Output: 03/08/18 03/08/18 06:59 18:59 Output Total 700 Balance -700 - Medications Medications: Current Medications Amlodipine Besylate (Norvasc) 10 mg PO DAILY [facility] Last Admin: 03/08/18 10:30 Dose: 10 mg Benztropine Mesylate (Cogentin) 2 mg PO DAILY [facility] Last Admin: 03/08/18 10:30 Dose: 2 mg Dextrose (Dextrose 50% Inj) 0 ml IV STAT PRN; Protocol PRN Reason: Hypoglycemia Protocol Dextrose (Glutose 15) 0 gm PO ONCE PRN; Protocol PRN Reason: Hypoglycemia Protocol Epoetin Douglas (Procrit) 6,000 unit IV MWF [facility] Last Admin: 03/07/18 12:11 Dose: 6,000 unit Famotidine (Pepcid) 20 mg PO DAILY [facility] Last Admin: 03/08/18 10:30 Dose: 20 mg Furosemide (Lasix) 40 mg IVP DAILY [facility] Last Admin: 03/08/18 10:31 Dose: 40 mg Glimepiride (Amaryl) 4 mg PO ACB [facility] Last Admin: 03/08/18 10:30 Dose: 4 mg Glucagon (Glucagen Diagnostic Kit) 0 mg IM STAT PRN; Protocol PRN Reason: Hypoglycemia Protocol Haloperidol (Haldol) 5 mg PO BID [facility] Last Admin: 03/08/18 10:30 Dose: 5 mg Heparin Sodium (Porcine) (Heparin) 5,000 units SC Q8 [facility] Last Admin: 03/08/18 06:20 Dose: Not Given Hydralazine HCl (Apresoline) 25 mg PO BID [facility] Last Admin: 03/08/18 10:30 Dose: 25 mg Sodium Chloride (Sodium Chloride 0.9%) 1,000 mls @ 75 mls/hr IV .[id number] [facility] Last Admin: 03/08/18 06:51 Dose: Not Given Insulin Glargine (Lantus) 25 unit SC [facility] Last Admin: 03/07/18 21:56 Dose: 25 units Insulin Human Regular (Novolin R) 0 unit SC [facility]; Protocol Last Admin: 03/08/18 06:47 Dose: 6 unit Olanzapine (Zyprexa) 10 mg PO [facility] Last Admin: 03/07/18 21:54 Dose: 10 mg Trazodone HCl (Desyrel) 100 mg PO BID [facility] Last Admin: 03/08/18 10:29 Dose: 100 mg Zolpidem Tartrate (Ambien) 5 mg PO [facility] Last Admin: 03/07/18 21:54 Dose: 5 mg - Labs Labs: 03/07/18 12:11 03/06/18 07:05 PT 12.8 SECONDS (9.7-12.2) H 03/07/18 07:37 INR 1.2 03/07/18 07:37 APTT 33 SECONDS (21-34) 03/07/18 07:37 - Constitutional Appears: Non-toxic, No Acute Distress, Unkempt, Confused - Eye Exam Eye Exam: EOMI - ENT Exam ENT Exam: Mucous Membranes Moist - Neck Exam Neck Exam: Full ROM. absent: Lymphadenopathy - Respiratory Exam Respiratory Exam: Decreased Breath Sounds. absent: Accessory Muscle Use - Cardiovascular Exam Cardiovascular Exam: REGULAR RHYTHM. absent: Rubs - GI/Abdominal Exam GI & Abdominal Exam: absent: Guarding, Tenderness - Extremities Exam Extremities Exam: Pedal Edema - Neurological Exam Neurological Exam: Alert - Psychiatric Exam Psychiatric exam: Agitated Assessment and Plan - Assessment and Plan (Free Text) Assessment: repeat second dose of steroids today psych f/u for manic state HD on Saturday renal biopsy or further immunosuppression not advised at this time due to psychiatric state
--- NOTE | 2018-03-08 12:54 | CP.PCM.PN ---
Subjective - Date & Time of Evaluation Date of Evaluation: 03/08/18 Time of Evaluation: 07:00 - Subjective Subjective: Vascular surgery progress note for Dr. Seo Pt seen and examined this AM sitting at bedside. Denies any pain, SOB, or any other complaints or concerns Objective - Vital Signs/Intake and Output Vital Signs (last 24 hours): Temp Pulse Resp BP Pulse Ox 98.8 F 106 H 20 178/78 H 95 03/08/18 07:00 03/08/18 11:59 03/08/18 07:00 03/08/18 10:31 03/08/18 07:00 Intake and Output: 03/08/18 03/08/18 06:59 18:59 Output Total 700 Balance -700 - Medications Medications: Current Medications Amlodipine Besylate (Norvasc) 10 mg PO DAILY [facility] Last Admin: 03/08/18 10:30 Dose: 10 mg Benztropine Mesylate (Cogentin) 2 mg PO DAILY [facility] Last Admin: 03/08/18 10:30 Dose: 2 mg Dextrose (Dextrose 50% Inj) 0 ml IV STAT PRN; Protocol PRN Reason: Hypoglycemia Protocol Dextrose (Glutose 15) 0 gm PO ONCE PRN; Protocol PRN Reason: Hypoglycemia Protocol Epoetin Douglas (Procrit) 6,000 unit IV MWF [facility] Last Admin: 03/07/18 12:11 Dose: 6,000 unit Famotidine (Pepcid) 20 mg PO DAILY [facility] Last Admin: 03/08/18 10:30 Dose: 20 mg Furosemide (Lasix) 40 mg IVP DAILY [facility] Last Admin: 03/08/18 10:31 Dose: 40 mg Glimepiride (Amaryl) 4 mg PO ACB [facility] Last Admin: 03/08/18 10:30 Dose: 4 mg Glucagon (Glucagen Diagnostic Kit) 0 mg IM STAT PRN; Protocol PRN Reason: Hypoglycemia Protocol Haloperidol (Haldol) 5 mg PO BID [facility] Last Admin: 03/08/18 10:30 Dose: 5 mg Heparin Sodium (Porcine) (Heparin) 5,000 units SC Q8 [facility] Last Admin: 03/08/18 06:20 Dose: Not Given Hydralazine HCl (Apresoline) 25 mg PO BID [facility] Last Admin: 03/08/18 10:30 Dose: 25 mg Sodium Chloride (Sodium Chloride 0.9%) 1,000 mls @ 75 mls/hr IV .[id number] [facility] Last Admin: 03/08/18 06:51 Dose: Not Given Methylprednisolone 1 gm/ (Sodium Chloride) 250 mls @ 250 mls/hr IV ONCE ONE Stop: 03/08/18 23:14 Insulin Glargine (Lantus) 25 unit SC [facility] Last Admin: 03/07/18 21:56 Dose: 25 units Insulin Human Regular (Novolin R) [address] [facility]; Protocol Last Admin: 03/08/18 12:38 Dose: 6 unit Olanzapine (Zyprexa) 10 mg PO HS [facility] Last Admin: 03/07/18 21:54 Dose: 10 mg Trazodone HCl (Desyrel) 100 mg PO BID [facility] Last Admin: 03/08/18 10:29 Dose: 100 mg Zolpidem Tartrate (Ambien) 5 mg PO HS [facility] Last Admin: 03/07/18 21:54 Dose: 5 mg - Labs Labs: 03/07/18 12:11 03/06/18 07:05 PT 12.8 SECONDS (9.7-12.2) H 03/07/18 07:37 INR 1.2 03/07/18 07:37 APTT 33 SECONDS (21-34) 03/07/18 07:37 - Constitutional Appears: Well, Non-toxic, No Acute Distress - Head Exam Head Exam: ATRAUMATIC, NORMOCEPHALIC - Eye Exam Eye Exam: Normal appearance. absent: Conjunctival injection, Scleral icterus - ENT Exam ENT Exam: Mucous Membranes Moist, Normal Oropharynx - Neck Exam Additional comments: permacath in the right neck in good position with no hematoma, active bleeding, or any drainage - Respiratory Exam Respiratory Exam: NORMAL BREATHING PATTERN. absent: Accessory Muscle Use, Respiratory Distress - Cardiovascular Exam Cardiovascular Exam: RRR - GI/Abdominal Exam GI & Abdominal Exam: Soft. absent: Distended, Tenderness - Extremities Exam Extremities Exam: absent: Calf Tenderness, Pedal Edema - Neurological Exam Neurological Exam: Alert, Awake - Psychiatric Exam Psychiatric exam: Agitated, Normal Affect - Skin Skin Exam: Dry, Normal Color, Warm Assessment and Plan - Assessment and Plan (Free Text) Assessment: 52M POD#1 s/p permacath insertion in the right IJ Plan: No further surgical intervention indicated, catheter is clear for use, follow up with Dr. Seo in his office for any further complaints or for further HD access discussed with Dr. Seo
--- NOTE | 2018-03-08 14:28 | CP.PCM.PN ---
Subjective - Date & Time of Evaluation Date of Evaluation: 03/08/18 Time of Evaluation: 10:00 - Subjective Subjective: the patient seen and examined Lying comfortably in no distress Dyspnea on exertion Status post permacath placement Afebrile Continue hemodialysis Objective - Vital Signs/Intake and Output Vital Signs (last 24 hours): Temp Pulse Resp BP Pulse Ox 98.8 F 106 H 20 178/78 H 95 03/08/18 07:00 03/08/18 11:59 03/08/18 07:00 03/08/18 10:31 03/08/18 07:00 Intake and Output: 03/08/18 03/08/18 06:59 18:59 Output Total 700 Balance -700 - Medications Medications: Current Medications Amlodipine Besylate (Norvasc) 10 mg PO DAILY [facility] Last Admin: 03/08/18 10:30 Dose: 10 mg Benztropine Mesylate (Cogentin) 2 mg PO DAILY [facility] Last Admin: 03/08/18 10:30 Dose: 2 mg Dextrose (Dextrose 50% Inj) 0 ml IV STAT PRN; Protocol PRN Reason: Hypoglycemia Protocol Dextrose (Glutose 15) 0 gm PO ONCE PRN; Protocol PRN Reason: Hypoglycemia Protocol Epoetin Douglas (Procrit) 6,000 unit IV MWF [facility] Last Admin: 03/07/18 12:11 Dose: 6,000 unit Famotidine (Pepcid) 20 mg PO DAILY [facility] Last Admin: 03/08/18 10:30 Dose: 20 mg Furosemide (Lasix) 40 mg IVP DAILY [facility] Last Admin: 03/08/18 10:31 Dose: 40 mg Glimepiride (Amaryl) 4 mg PO ACB [facility] Last Admin: 03/08/18 10:30 Dose: 4 mg Glucagon (Glucagen Diagnostic Kit) 0 mg IM STAT PRN; Protocol PRN Reason: Hypoglycemia Protocol Haloperidol (Haldol) 5 mg PO BID [facility] Last Admin: 03/08/18 10:30 Dose: 5 mg Heparin Sodium (Porcine) (Heparin) 5,000 units SC Q8 [facility] Last Admin: 03/08/18 14:03 Dose: Not Given Hydralazine HCl (Apresoline) 25 mg PO BID [facility] Last Admin: 03/08/18 10:30 Dose: 25 mg Sodium Chloride (Sodium Chloride 0.9%) 1,000 mls @ 75 mls/hr IV .[id number] [facility] Last Admin: 03/08/18 06:51 Dose: Not Given Methylprednisolone 1 gm/ (Sodium Chloride) 250 mls @ 250 mls/hr IV ONCE ONE Stop: 03/08/18 23:14 Insulin Glargine (Lantus) 25 unit SC [facility] Last Admin: 03/07/18 21:56 Dose: 25 units Insulin Human Regular (Novolin R) 0 unit SC [facility]; Protocol Last Admin: 03/08/18 12:38 Dose: 6 unit Olanzapine (Zyprexa) 10 mg PO HS [facility] Last Admin: 03/07/18 21:54 Dose: 10 mg Trazodone HCl (Desyrel) 100 mg PO BID [facility] Last Admin: 03/08/18 10:29 Dose: 100 mg Zolpidem Tartrate (Ambien) 5 mg PO HS [facility] Last Admin: 03/07/18 21:54 Dose: 5 mg - Labs Labs: 03/07/18 12:11 03/06/18 07:05 PT 12.8 SECONDS (9.7-12.2) H 03/07/18 07:37 INR 1.2 03/07/18 07:37 APTT 33 SECONDS (21-34) 03/07/18 07:37 Assessment and Plan (1) Pulmonary edema Status: Acute (2) Acute renal failure Status: Acute
[2018-03-08 14:34] LABS: ALB/GLOB RATIO 0.9 (1.0-2.1); CALCIUM 7.6 mg/dl (8.6-10.4)
--- NOTE | 2018-03-08 16:47 | CARD ---
APPROVED REPORT Date of service: 03/08/2018 EXAM: Two-dimensional and M-mode echocardiogram with Doppler and color Doppler. Other Information Quality : Technically LimitedRhythm : INDICATION Dyspnea POSSIBLE CARDIOMYOPATHY RISK FACTORS Hyperlipidemia 2D DIMENSIONS IVSd1.5 (0.7-1.1cm)Aortic Root (2D)4.2 (2.0-3.7cm) LVDd5.6 (3.9-5.9cm)LVOT Diameter2.2 (1.8-2.4cm) PWd1.5 (0.7-1.1cm)LVDs4.7 (2.5-4.0cm) FS (%) 16.0 %LVEF (%)33.2 (>50%) M-Mode DIMENSIONS Left Atrium (MM)4.03 (2.5-4.0cm)Aortic Root4.51 (2.2-3.7cm) Aortic Cusp Exc.2.13 (1.5-2.0cm) Mitral Valve MV E Ntubeouh36.1cm/sMV A Nkyxrtqi47.0cm/sE/A ratio2.5 TDI Lateral E' Peak V7.19cm/sMedial E' Peak V6.93cm/sE/Lateral E'9.2 E/Medial E'9.5 Pulmonary Valve PV Peak Opgqjcja75.6cm/sPV Peak Grad.1mmHg Tricuspid Valve TR Peak [id number]/sTR Peak Gr.[id number] LEFT VENTRICLE The left ventricle is upper normal size. There is mild concentric left ventricular hypertrophy. Left ventricular function is severely reduced, with diffuse htpokinesis. Left ventricular ejection fraction is visually estiamted to be about 20% (no quantitation performed). Transmitral Doppler flow pattern is Grade III, restrictive pattern. No left ventricle thrombus noted on this study. There is no ventricular septal defect visualized. There is no left ventricular aneurysm. There is no mass noted in the left ventricle. RIGHT VENTRICLE The right ventricle is normal size. There is normal right ventricular wall thickness. The right ventricular systolic function is normal. ATRIA The left atrial volume index assessment was not performed. The right atrium size is moderately dilated. The interatrial septum is intact with no evidence for an atrial septal defect. AORTIC VALVE The aortic valve is normal in structure and function. No aortic regurgitation is present. There is no aortic valvular stenosis. There is no aortic valvular vegetation. MITRAL VALVE The mitral valve is normal in structure and function. There is no evidence of mitral valve prolapse. There is no mitral valve stenosis. There is mild mitral valve regurgitation noted. TRICUSPID VALVE The tricuspid valve is normal in structure and function. There is mild tricuspid valve regurgitation noted. PA systolic pressure is abut 37 mm Hg. There is no tricuspid valve prolapse or vegetation. There is no tricuspid valve stenosis. PULMONIC VALVE The pulmonary valve is normal in structure and function. There is no pulmonic valvular regurgitation. There is no pulmonic valvular stenosis. GREAT VESSELS The aortic root is normal in size. The ascending aorta is normal in size. The pulmonary artery is normal. The IVC is dilated and collapses >50% with inspiration. PERICARDIAL EFFUSION The pericardium appears normal. There is no pleural effusion. <Conclusion> Left ventricular function is severely reduced, with diffuse htpokinesis. There is mild concentric left ventricular hypertrophy. Left ventricular ejection fraction is visually estiamted to be about 20% (no quantitation performed). Transmitral Doppler flow pattern is Grade III, restrictive pattern. The left atrial volume index assessment was not performed. The right atrium size is moderately dilated. There is mild mitral valve regurgitation noted.
--- NOTE | 2018-03-08 17:08 | CP.PCM.PN ---
Subjective - Date & Time of Evaluation Date of Evaluation: 03/08/18 Time of Evaluation: 17:06 - Subjective Subjective: PGY-2 Progress Note Patient seen and examined at bedside. Per nursing no acute events occurred overnight .Patient reports feeling better today upon examination. Patient denies any chest pain, shortness of breath, fevers, chills, nausea vomiting, or any other complaints. Objective - Vital Signs/Intake and Output Vital Signs (last 24 hours): Temp Pulse Resp BP Pulse Ox 97.5 F L 102 H 20 147/90 94 L 03/08/18 15:24 03/08/18 15:24 03/08/18 15:24 03/08/18 15:24 03/08/18 15:24 Intake and Output: 03/08/18 03/08/18 06:59 18:59 Output Total 700 Balance -700 - Medications Medications: Current Medications Amlodipine Besylate (Norvasc) 10 mg PO DAILY [facility] Last Admin: 03/08/18 10:30 Dose: 10 mg Benztropine Mesylate (Cogentin) 2 mg PO DAILY [facility] Last Admin: 03/08/18 10:30 Dose: 2 mg Dextrose (Dextrose 50% Inj) 0 ml IV STAT PRN; Protocol PRN Reason: Hypoglycemia Protocol Dextrose (Glutose 15) 0 gm PO ONCE PRN; Protocol PRN Reason: Hypoglycemia Protocol Epoetin Douglas (Procrit) 6,000 unit IV MWF [facility] Last Admin: 03/07/18 12:11 Dose: 6,000 unit Famotidine (Pepcid) 20 mg PO DAILY [facility] Last Admin: 03/08/18 10:30 Dose: 20 mg Furosemide (Lasix) 40 mg IVP DAILY [facility] Last Admin: 03/08/18 10:31 Dose: 40 mg Glimepiride (Amaryl) 4 mg PO ACB [facility] Last Admin: 03/08/18 10:30 Dose: 4 mg Glucagon (Glucagen Diagnostic Kit) 0 mg IM STAT PRN; Protocol PRN Reason: Hypoglycemia Protocol Haloperidol (Haldol) 5 mg PO BID [facility] Last Admin: 03/08/18 10:30 Dose: 5 mg Heparin Sodium (Porcine) (Heparin) 5,000 units SC Q8 [facility] Last Admin: 03/08/18 14:03 Dose: Not Given Hydralazine HCl (Apresoline) 25 mg PO BID [facility] Last Admin: 03/08/18 10:30 Dose: 25 mg Sodium Chloride (Sodium Chloride 0.9%) 1,000 mls @ 75 mls/hr IV .[id number] [facility] Last Admin: 03/08/18 06:51 Dose: Not Given Methylprednisolone 1 gm/ (Sodium Chloride) 250 mls @ 250 mls/hr IV ONCE ONE Stop: 03/08/18 23:14 Insulin Glargine (Lantus) 25 unit SC [facility] Last Admin: 03/07/18 21:56 Dose: 25 units Insulin Human Regular (Novolin R) [address] [facility]; Protocol Last Admin: 03/08/18 12:38 Dose: 6 unit Lisinopril (Zestril) 5 mg PO DAILY [facility] Olanzapine (Zyprexa) 10 mg PO [facility] Last Admin: 03/07/18 21:54 Dose: 10 mg Trazodone HCl (Desyrel) 100 mg PO BID [facility] Last Admin: 03/08/18 10:29 Dose: 100 mg Zolpidem Tartrate (Ambien) 5 mg PO [facility] Last Admin: 03/07/18 21:54 Dose: 5 mg - Labs Labs: 03/07/18 12:11 03/08/18 13:53 PT 12.8 SECONDS (9.7-12.2) H 03/07/18 07:37 INR 1.2 03/07/18 07:37 APTT 33 SECONDS (21-34) 03/07/18 07:37 - Head Exam Head Exam: ATRAUMATIC, NORMAL INSPECTION - Eye Exam Eye Exam: EOMI, Normal appearance, PERRL Pupil Exam: NORMAL ACCOMODATION, PERRL. absent: Irregular - ENT Exam ENT Exam: Mucous Membranes Moist, Normal Oropharynx - Respiratory Exam Respiratory Exam: Clear to Ausculation Bilateral, NORMAL BREATHING PATTERN. ab sent: Chest Wall Tenderness, Respiratory Distress - Cardiovascular Exam Cardiovascular Exam: REGULAR RHYTHM, RRR, +S1, +S2. absent: Rubs - GI/Abdominal Exam GI & Abdominal Exam: Soft, Normal Bowel Sounds. absent: Rigid, Hyperactive Bowel Sounds - Extremities Exam Extremities Exam: Full ROM. absent: Joint Swelling, Pedal Edema, Tenderness - Neurological Exam Neurological Exam: Alert, Awake, CN II-XII Intact, Oriented x3 - Psychiatric Exam Psychiatric exam: Normal Affect, Normal Mood - Skin Skin Exam: Dry, Intact, Normal Color Assessment and Plan - Assessment and Plan (Free Text) Plan: BRIAN -renal u/s 03/05 shows b/l renal cysts and evidence of medical renal dz -ambrocio in place -Nephro consult Dr. Henry - No renal biopsy at this time due to mental state - repeat 2nd steroids - next HD saturday, maintain HD -sx consult, Dr. 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 Mckinney - Pulmonary edema and pleural effusion secondary to renal failure. Hemodialysis. Follow-up chest x-ray - CXR 03/07 - Right sided dialysis catheter terminates in right atrium. Interval worsening layering pleural effusions and development of presumable alveolar pulmonary edema, worse in the right lung DM2 -hgb a1c 7.9 -lantus 25u hs -ISS -glimepiride 4mg acb HTN Echo taken. Final read pending. -norvasc 10mg po -hydralazine 25mg po bid -Lisinopril 5mg PO Daily Thrombocytopenia -354-->[address] Leyva has declared pt incapable of making his own medical decisions. -cogentin 2mg po -ambien 5mg po hs -trazodone 100mf po BID -haldol 5mg po bid -zyprexa 10mg po hs -psych consult Dr. Leyva Ppx -heparin 5000sc q8 -pepcid 20mg PO daily Plan discussed with Dr Pittman. Med management as per Dr Zain Thomas, PGY-2
[2018-03-08] MEDS: (Lantus) Insulin Glargine, Recombinant SC SCH (22:03)
[2018-03-08] MEDS ORDERED: methylPREDNISolone 1 GM in Sodium Chloride 0.9% 250 ML IV ONE (22:15)
--- NOTE | 2018-03-09 08:02 | CP.PCM.PN ---
Subjective - Date & Time of Evaluation Date of Evaluation: 03/09/18 Time of Evaluation: 08:01 - Subjective Subjective: PGY-2 Progress Note Patient seen and examined at bedside. Per nursing patient was extremely agigtated overnight pulling out his ambrocio catheter in the process .Patient denies any complaints at this visit. Objective - Vital Signs/Intake and Output Vital Signs (last 24 hours): Temp Pulse Resp BP Pulse Ox 97.4 F L 102 H 20 148/94 H 97 03/08/18 23:45 03/08/18 23:45 03/08/18 23:45 03/08/18 23:45 03/08/18 23:45 Intake and Output: 03/09/18 03/09/18 06:59 18:59 Output Total 500 Balance -500 - Medications Medications: Current Medications Amlodipine Besylate (Norvasc) 10 mg PO DAILY [facility] Last Admin: 03/08/18 10:30 Dose: 10 mg Benztropine Mesylate (Cogentin) 2 mg PO DAILY [facility] Last Admin: 03/08/18 10:30 Dose: 2 mg Dextrose (Dextrose 50% Inj) 0 ml IV STAT PRN; Protocol PRN Reason: Hypoglycemia Protocol Dextrose (Glutose 15) 0 gm PO ONCE PRN; Protocol PRN Reason: Hypoglycemia Protocol Epoetin Douglas (Procrit) 6,000 unit IV MWF [facility] Last Admin: 03/07/18 12:11 Dose: 6,000 unit Famotidine (Pepcid) 20 mg PO DAILY [facility] Last Admin: 03/08/18 10:30 Dose: 20 mg Furosemide (Lasix) 40 mg IVP DAILY [facility] Last Admin: 03/08/18 10:31 Dose: 40 mg Glimepiride (Amaryl) 4 mg PO ACB [facility] Last Admin: 03/08/18 10:30 Dose: 4 mg Glucagon (Glucagen Diagnostic Kit) 0 mg IM STAT PRN; Protocol PRN Reason: Hypoglycemia Protocol Haloperidol (Haldol) 5 mg PO BID [facility] Last Admin: 03/08/18 19:43 Dose: 5 mg Heparin Sodium (Porcine) (Heparin) 5,000 units SC Q8 [facility] Last Admin: 03/09/18 05:57 Dose: Not Given Hydralazine HCl (Apresoline) 25 mg PO BID [facility] Last Admin: 03/08/18 19:43 Dose: 25 mg Sodium Chloride (Sodium Chloride 0.9%) 1,000 mls @ 75 mls/hr IV .[id number] [facility] Last Admin: 03/08/18 17:04 Dose: Not Given Insulin Glargine (Lantus) [address] [facility] Last Admin: 03/08/18 22:03 Dose: 25 units Insulin Human Regular (Novolin R) 0 unit SC [facility]; Protocol Last Admin: 03/08/18 22:03 Dose: 3 unit Lisinopril (Zestril) 5 mg PO DAILY [facility] Olanzapine (Zyprexa) [address] [facility] Last Admin: 03/08/18 22:03 Dose: 10 mg Trazodone HCl (Desyrel) 100 mg PO BID [facility] Last Admin: 03/08/18 19:43 Dose: 100 mg Zolpidem Tartrate (Ambien) [address] [facility] Last Admin: 03/08/18 22:03 Dose: 5 mg - Labs Labs: 03/07/18 12:11 03/08/18 13:53 PT 12.8 SECONDS (9.7-12.2) H 03/07/18 07:37 INR 1.2 03/07/18 07:37 APTT 33 SECONDS (21-34) 03/07/18 07:37 - Head Exam Head Exam: ATRAUMATIC, NORMAL INSPECTION - Eye Exam Eye Exam: EOMI, Normal appearance, PERRL Pupil Exam: NORMAL ACCOMODATION - ENT Exam ENT Exam: Mucous Membranes Moist, Normal Oropharynx - Respiratory Exam Respiratory Exam: Clear to Ausculation Bilateral, NORMAL BREATHING PATTERN. absent: Prolonged Expiratory Phase, Respiratory Distress - Cardiovascular Exam Cardiovascular Exam: REGULAR RHYTHM, +S1, +S2 - GI/Abdominal Exam GI & Abdominal Exam: Soft, Normal Bowel Sounds - Extremities Exam Extremities Exam: Full ROM. absent: Pedal Edema - Back Exam Back Exam: NORMAL INSPECTION. absent: CVA tenderness (R), paraspinal tenderness - Neurological Exam Neurological Exam: Alert, Awake, CN II-XII Intact, Oriented x3 - Psychiatric Exam Psychiatric exam: Normal Affect, Normal Mood - Skin Skin Exam: Dry, Intact Assessment and Plan - Assessment and Plan (Free Text) Plan: BRIAN -renal u/s 03/05 shows b/l renal cysts and evidence of medical renal dz -ambrocio in place -Nephro consult Dr. Henry - No renal biopsy at this time due to mental state - repeat 2nd steroids - next HD saturday, maintain HD -sx consult, Dr. 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 Mckinney - Pulmonary edema and pleural effusion secondary to renal failure. Hemodialysis. Follow-up chest x-ray - CXR 03/07 - Right sided dialysis catheter terminates in right atrium. Interval worsening layering pleural effusions and development of presumable alveolar pulmonary edema, worse in the right lung DM2 -hgb a1c 7.9 -lantus 25u hs -ISS -glimepiride 4mg acb HTN Echo taken. Final read pending. -norvasc 10mg po -hydralazine 25mg po bid -Lisinopril 5mg PO Daily Thrombocytopenia -354-->[address] Leyva has declared pt incapable of making his own medical decisions. -cogentin 2mg po -ambien 5mg po hs -trazodone 100mf po BID -haldol 5mg po bid -zyprexa 10mg po hs -psych consult Dr. Leyva :Patient altered. Will f/u with Dr Ashby for further reccomendations. Ppx -heparin 5000sc q8 -pepcid 20mg PO daily Plan discussed with Dr Pittman. Med management as per Dr Zain Thomas, PGY-2
[2018-03-09] MEDS: (Novolin R) Insulin Human Regular 100 units/ml vial SC SCH ×5 (08:22→21:48)
[2018-03-09] MEDS: Sodium Chloride 0.9% 1,000 ML IV SCH (20:40)
[2018-03-09] MEDS: (Lantus) Insulin Glargine, Recombinant SC SCH (21:48)
[2018-03-10 07:07] LABS: BASO % 0.2 % (0.0-2.0); EOS # 0.5 K/uL (0.0-0.7); EOS % 3.7 % (0.0-4.0); LYMPH # 1.3 K/uL (1.0-4.3); LYMPH % 10.7 % (20.0-40.0); MEAN CELL VOLUME 88.4 fL (80.0-94.0); MEAN CORPUSCULAR HEMOGLOBIN 28.1 pg (27.0-31.0); MEAN CORPUSCULAR HGB CONC 31.7 g/dL (33.0-37.0); MEAN PLATELET VOLUME 7.6 fL (7.2-11.7); MONO # 1.2 K/uL (0.0-0.8); MONO % 9.7 % (0.0-10.0); NEUT # 9.4 K/uL (1.8-7.0); NEUT % 75.7 % (50.0-75.0); RBC 3.2 Mil/uL (4.40-5.90); RED CELL DISTRIBUTION WIDTH 14.9 % (11.5-14.5); WHITE BLOOD COUNT 12.4 K/uL (4.8-10.8)
[2018-03-10 07:48] LABS: ALB/GLOB RATIO 0.9 (1.0-2.1); CALCIUM 7.4 mg/dl (8.6-10.4)
--- NOTE | 2018-03-10 08:41 | CP.PCM.PN ---
Subjective - Date & Time of Evaluation Date of Evaluation: 03/10/18 Time of Evaluation: 07:30 - Subjective Subjective: PGY-[address] Pittman Patient is seen and examined sitting in chair. Patient says he "wants to go home". Patient denies any pain at this time. Patient states he is eating and ambulating. Patient states he is urinating and had a bowel movement yesterday. Patient denies fevers, chills, chest pain, shortness of breath, nausea, vomiting, diarrhea or constipation. Objective - Vital Signs/Intake and Output Vital Signs (last 24 hours): Temp Pulse Resp BP Pulse Ox 98.8 F 99 H 20 128/73 96 03/10/18 08:23 03/10/18 08:23 03/10/18 08:23 03/10/18 08:23 03/10/18 08:23 Intake and Output: 03/10/18 03/10/18 06:59 18:59 Intake Total 240 Balance 240 - Medications Medications: Current Medications Amlodipine Besylate (Norvasc) 10 mg PO DAILY [facility] Last Admin: 03/09/18 11:58 Dose: Not Given Benztropine Mesylate (Cogentin) 2 mg PO DAILY [facility] Last Admin: 03/09/18 11:57 Dose: Not Given Dextrose (Dextrose 50% Inj) 0 ml IV STAT PRN; Protocol PRN Reason: Hypoglycemia Protocol Dextrose (Glutose 15) 0 gm PO ONCE PRN; Protocol PRN Reason: Hypoglycemia Protocol Epoetin Douglas (Procrit) 6,000 unit IV MWF [facility] Last Admin: 03/07/18 12:11 Dose: 6,000 unit Famotidine (Pepcid) 20 mg PO DAILY [facility] Last Admin: 03/09/18 12:02 Dose: Not Given Furosemide (Lasix) 40 mg IVP DAILY [facility] Last Admin: 03/09/18 11:57 Dose: Not Given Glimepiride (Amaryl) 4 mg PO ACB [facility] Last Admin: 03/09/18 08:25 Dose: 4 mg Glucagon (Glucagen Diagnostic Kit) 0 mg IM STAT PRN; Protocol PRN Reason: Hypoglycemia Protocol Haloperidol (Haldol) 5 mg PO BID [facility] Last Admin: 03/09/18 19:02 Dose: Not Given Heparin Sodium (Porcine) (Heparin) 5,000 units SC Q8 [facility] Last Admin: 03/10/18 06:00 Dose: Not Given Hydralazine HCl (Apresoline) 25 mg PO BID [facility] Last Admin: 03/09/18 19:03 Dose: Not Given Sodium Chloride (Sodium Chloride 0.9%) 1,000 mls @ 75 mls/hr IV .[id number] [facility] Last Admin: 03/09/18 20:40 Dose: Not Given Insulin Glargine (Lantus) 25 unit SC [facility] Last Admin: 03/09/18 21:48 Dose: Not Given Insulin Human Regular (Novolin R) 0 unit SC [facility]; Protocol Last Admin: 03/09/18 21:48 Dose: Not Given Lisinopril (Zestril) 5 mg PO DAILY [facility] Last Admin: 03/09/18 12:02 Dose: Not Given Olanzapine (Zyprexa) 10 mg PO [facility] Last Admin: 03/09/18 21:48 Dose: Not Given Risperidone (Risperdal Tab) 2 mg PO BID [facility] Last Admin: 03/09/18 20:37 Dose: 2 mg Trazodone HCl (Desyrel) 100 mg PO BID [facility] Last Admin: 03/09/18 19:03 Dose: Not Given Zolpidem Tartrate (Ambien) 5 mg PO [facility] Last Admin: 03/10/18 02:48 Dose: 5 mg - Labs Labs: 03/10/18 06:55 03/10/18 06:55 PT 12.8 SECONDS (9.7-12.2) H 03/07/18 07:37 INR 1.2 03/07/18 07:37 APTT 33 SECONDS (21-34) 03/07/18 07:37 - Constitutional Appears: No Acute Distress, Agitated - Head Exam Head Exam: ATRAUMATIC, NORMAL INSPECTION, NORMOCEPHALIC - Eye Exam Eye Exam: EOMI, Normal appearance - ENT Exam ENT Exam: Mucous Membranes Moist, Normal Exam - Neck Exam Neck Exam: Full ROM, Normal Inspection - Respiratory Exam Respiratory Exam: Clear to Ausculation Bilateral, NORMAL BREATHING PATTERN. absent: Rales, Rhonchi, Wheezes - Cardiovascular Exam Cardiovascular Exam: Tachycardia, REGULAR RHYTHM, +S1, +S2 - GI/Abdominal Exam GI & Abdominal Exam: Distended, Rigid, Normal Bowel Sounds. absent: Guarding, Tenderness - Extremities Exam Extremities Exam: Full ROM. absent: Tenderness - Back Exam Back Exam: Full ROM, NORMAL INSPECTION - Neurological Exam Neurological Exam: Alert, Awake - Psychiatric Exam Psychiatric exam: Agitated, Flat Affect - Skin Skin Exam: Dry, Intact, Normal Color, Warm Assessment and Plan - Assessment and Plan (Free Text) Plan: BRIAN -renal u/s 03/05 shows b/l renal cysts and evidence of medical renal dz -Nephro consult Dr. Mckeon - HD today 03/10, maintain hd - solumedrol 1gIV today, pulse steroids - consider renal biopsy if improved psychosis would continue po steroids only if able to identify need based on renal biopsy. 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 Mckinney - f/u recs - CXR 03/07 - Right sided dialysis catheter terminates in right atrium. Interval worsening layering pleural effusions and development of presumable alveolar pulmonary edema, worse in the right lung DM2 -hgb a1c 7.9 -lantus 25u hs -ISS -glimepiride 4mg acb HTN Echo - left ventricular function is severey reduced, with diffuse hypokinesis. there is mild concentric left ventricular hypertrophy. Left ventricular ejection fractuon is visually estimated to be about 20%. (see full report) -norvasc 10mg po -hydralazine 25mg po bid -Lisinopril 5mg PO Daily Thrombocytopenia -continue to monitor -204 on 03/[address] Leyva has declared pt incapable of making his own medical decisions. -cogentin 2mg po -ambien 5mg po hs -trazodone 100mf po BID -haldol 5mg po bid -zyprexa 10mg po hs -psych consult Dr. Leyva :Patient altered. Will f/u with Dr Ashby for further reccomendations. Ppx -heparin 5000sc q8 -pepcid 20mg PO daily Plan discussed with Dr Pittman. Med management as per Dr Zain Crawford, PGY-1
[2018-03-10] MEDS: (Novolin R) Insulin Human Regular 100 units/ml vial SC SCH ×5 (09:00→23:53)
[2018-03-10] MEDS: Epoetin Alfa Dialysis 3000 UNIT/ML Inj IV SCH (09:49)
--- NOTE | 2018-03-10 12:31 | CP.PCM.PN ---
Subjective - Date & Time of Evaluation Date of Evaluation: 03/10/18 Time of Evaluation: 12:30 - Subjective Subjective: attempted to seept became belligerent, doesnt want to talk or allowing exam spoke w/ pts mom. Objective - Vital Signs/Intake and Output Vital Signs (last 24 hours): Temp Pulse Resp BP Pulse Ox 97.5 F L 99 H 20 151/77 H 97 03/10/18 09:20 03/10/18 09:20 03/10/18 09:20 03/10/18 11:50 03/10/18 09:20 Intake and Output: 03/10/18 03/10/18 06:59 18:59 Intake Total 240 Balance 240 - Medications Medications: Current Medications Amlodipine Besylate (Norvasc) 10 mg PO DAILY [facility] Last Admin: 03/09/18 11:58 Dose: Not Given Benztropine Mesylate (Cogentin) 2 mg PO DAILY [facility] Last Admin: 03/09/18 11:57 Dose: Not Given Dextrose (Dextrose 50% Inj) 0 ml IV STAT PRN; Protocol PRN Reason: Hypoglycemia Protocol Dextrose (Glutose 15) 0 gm PO ONCE PRN; Protocol PRN Reason: Hypoglycemia Protocol Epoetin Douglas (Procrit) 6,000 unit IV MWF [facility] Last Admin: 03/10/18 09:49 Dose: 6,000 unit Famotidine (Pepcid) 20 mg PO DAILY [facility] Last Admin: 03/09/18 12:02 Dose: Not Given Furosemide (Lasix) 40 mg IVP DAILY [facility] Last Admin: 03/09/18 11:57 Dose: Not Given Glimepiride (Amaryl) 4 mg PO ACB [facility] Last Admin: 03/10/18 09:00 Dose: 4 mg Glucagon (Glucagen Diagnostic Kit) 0 mg IM STAT PRN; Protocol PRN Reason: Hypoglycemia Protocol Haloperidol (Haldol) 5 mg PO BID [facility] Last Admin: 03/09/18 19:02 Dose: Not Given Heparin Sodium (Porcine) (Heparin) 5,000 units SC Q8 [facility] Last Admin: 03/10/18 06:00 Dose: Not Given Hydralazine HCl (Apresoline) 25 mg PO BID [facility] Last Admin: 03/09/18 19:03 Dose: Not Given Insulin Glargine (Lantus) 25 unit SC HS [facility] Last Admin: 03/09/18 21:48 Dose: Not Given Insulin Human Regular (Novolin R) 0 unit SC [facility]; Protocol Last Admin: 03/10/18 09:01 Dose: Not Given Lisinopril (Zestril) 5 mg PO DAILY [facility] Last Admin: 03/09/18 12:02 Dose: Not Given Olanzapine (Zyprexa) 10 mg PO HS [facility] Last Admin: 03/09/18 21:48 Dose: Not Given Risperidone (Risperdal Tab) 2 mg PO BID [facility] Last Admin: 03/09/18 20:37 Dose: 2 mg Trazodone HCl (Desyrel) 100 mg PO BID [facility] Last Admin: 03/09/18 19:03 Dose: Not Given Zolpidem Tartrate (Ambien) 5 mg PO HS [facility] Last Admin: 03/10/18 02:48 Dose: 5 mg - Labs Labs: 03/10/18 06:55 03/10/18 06:55 PT 12.8 SECONDS (9.7-12.2) H 03/07/18 07:37 INR 1.2 03/07/18 07:37 APTT 33 SECONDS (21-34) 03/07/18 07:37 Assessment and Plan (1) Acute renal failure Status: Acute (2) Cellulitis of right leg Status: Acute (3) Hyperglycemia Status: Acute - Assessment and Plan (Free Text) Assessment: maintain hd solumedrol 1g iv today, pulse steroids. consider renal biopsy if improved psychosis. would continue po steroids only if able to identify need based on renal biopsy outpt hd placement
[2018-03-10] MEDS ORDERED: methylPREDNISolone 1 GM in Sodium Chloride 0.9% 250 ML IV ONE (14:00)
[2018-03-10] MEDS: (Lantus) Insulin Glargine, Recombinant SC SCH (23:53)
[2018-03-11 08:11] LABS: BASO % 0.2 % (0.0-2.0); EOS # 0.2 K/uL (0.0-0.7); EOS % 1.2 % (0.0-4.0); HEMOGLOBIN 8.7 g/dL (12.0-18.0); LYMPH # 0.9 K/uL (1.0-4.3); LYMPH % 7.2 % (20.0-40.0); MEAN CELL VOLUME 87.8 fL (80.0-94.0); MEAN CORPUSCULAR HEMOGLOBIN 28.4 pg (27.0-31.0); MEAN CORPUSCULAR HGB CONC 32.4 g/dL (33.0-37.0); MEAN PLATELET VOLUME 7.8 fL (7.2-11.7); MONO # 1.4 K/uL (0.0-0.8); MONO % 10.8 % (0.0-10.0); NEUT # 10.7 K/uL (1.8-7.0); NEUT % 80.6 % (50.0-75.0); PLATELET COUNT 205 K/uL (130-400); RBC 3.06 Mil/uL (4.40-5.90); RED CELL DISTRIBUTION WIDTH 14.6 % (11.5-14.5); WHITE BLOOD COUNT 13.3 K/uL (4.8-10.8)
[2018-03-11 08:27] LABS: ALBUMIN 3.2 g/dL (3.5-5.0); CALCIUM 7.4 mg/dl (8.6-10.4)
[2018-03-11] MEDS: (Novolin R) Insulin Human Regular 100 units/ml vial SC SCH ×4 (08:44→21:10)
[2018-03-11 09:30] LABS: BANDS 2 % (0-2); EOSINOPHIL 1 % (0-4); LYMPHOCYTE 4 % (20-40); MONOCYTE 10 % (0-10); NEUTROPHIL 83 % (50-75); PLATELET ESTIMATE NORMAL (NORMAL); TOTAL CELLS COUNTED 100
--- NOTE | 2018-03-11 10:06 | CP.PCM.PN ---
Subjective - Date & Time of Evaluation Date of Evaluation: 03/11/18 Time of Evaluation: 10:03 - Subjective Subjective: seen and examined pt up in chair, not answering questions. appears comfortable Objective - Vital Signs/Intake and Output Vital Signs (last 24 hours): Temp Pulse Resp BP Pulse Ox 97.8 F 116 H 20 142/78 95 03/11/18 08:36 03/11/18 08:36 03/11/18 08:36 03/11/18 08:36 03/11/18 08:36 Intake and Output: 03/11/18 03/11/18 06:59 18:59 Intake Total 240 Balance 240 - Medications Medications: Current Medications Amlodipine Besylate (Norvasc) 10 mg PO DAILY [facility] Last Admin: 03/10/18 13:28 Dose: Not Given Benztropine Mesylate (Cogentin) 2 mg PO DAILY [facility] Last Admin: 03/10/18 13:34 Dose: Not Given Dextrose (Dextrose 50% Inj) 0 ml IV STAT PRN; Protocol PRN Reason: Hypoglycemia Protocol Dextrose (Glutose 15) 0 gm PO ONCE PRN; Protocol PRN Reason: Hypoglycemia Protocol Epoetin Douglas (Procrit) 6,000 unit IV MWF [facility] Last Admin: 03/10/18 09:49 Dose: 6,000 unit Famotidine (Pepcid) 20 mg PO DAILY [facility] Last Admin: 03/10/18 13:28 Dose: Not Given Glimepiride (Amaryl) 4 mg PO ACB [facility] Last Admin: 03/11/18 08:44 Dose: 4 mg Glucagon (Glucagen Diagnostic Kit) 0 mg IM STAT PRN; Protocol PRN Reason: Hypoglycemia Protocol Haloperidol (Haldol) 5 mg PO BID [facility] Last Admin: 03/10/18 20:13 Dose: 5 mg Heparin Sodium (Porcine) (Heparin) 5,000 units SC Q8 [facility] Last Admin: 03/11/18 06:20 Dose: Not Given Hydralazine HCl (Apresoline) 50 mg PO BID [facility] Insulin Glargine (Lantus) 25 unit SC HS [facility] Last Admin: 03/10/18 23:53 Dose: Not Given Insulin Human Regular (Novolin R) 0 unit SC ACHS [facility]; Protocol Last Admin: 03/11/18 08:44 Dose: 4 unit Olanzapine (Zyprexa) 10 mg PO HS [facility] Last Admin: 03/10/18 23:54 Dose: Not Given Risperidone (Risperdal Tab) 2 mg PO BID [facility] Last Admin: 03/10/18 20:13 Dose: 2 mg Trazodone HCl (Desyrel) 100 mg PO BID [facility] Last Admin: 03/10/18 20:13 Dose: 100 mg Zolpidem Tartrate (Ambien) 5 mg PO [facility] Last Admin: 03/10/18 23:53 Dose: Not Given - Labs Labs: 03/11/18 08:00 03/11/18 08:00 PT 12.8 SECONDS (9.7-12.2) H 03/07/18 07:37 INR 1.2 03/07/18 07:37 APTT 33 SECONDS (21-34) 03/07/18 07:37 - Constitutional Appears: Non-toxic, No Acute Distress, Unkempt, Confused, Chronically Ill - Head Exam Head Exam: NORMAL INSPECTION, NORMOCEPHALIC - Eye Exam Eye Exam: Normal appearance, PERRL - ENT Exam ENT Exam: Normal Exam, Normal Oropharynx - Neck Exam Neck Exam: Normal Inspection - Respiratory Exam Respiratory Exam: Clear to Ausculation Bilateral, NORMAL BREATHING PATTERN - Cardiovascular Exam Cardiovascular Exam: REGULAR RHYTHM, RRR - GI/Abdominal Exam GI & Abdominal Exam: Distended, Soft - Extremities Exam Extremities Exam: Normal Inspection - Neurological Exam Neurological Exam: Altered, Awake - Psychiatric Exam Psychiatric exam: Agitated - Skin Skin Exam: Intact Assessment and Plan (1) Acute renal failure Status: Acute (2) Cellulitis of right leg Status: Acute (3) Hyperglycemia Status: Acute - Assessment and Plan (Free Text) Assessment: maintain hd mwf, outpatient placement dc iv lasix dc lisinopril increase hydralazine dose to 50mg bid consider renal biopsy if improved psychosis. po steroids if able to identify need based on renal biopsy. With Current psych issues and uncontrolled sugars, will hold off further steroids
--- NOTE | 2018-03-11 12:46 | CP.PCM.PN ---
Subjective - Date & Time of Evaluation Date of Evaluation: 03/11/18 Time of Evaluation: 07:15 - Subjective Subjective: PGY-[address] Pittman service Patient is seen and examined sitting in bed. as per nurse, patient continues to refuse medications and be agitated during the evening and night. Patient shouts: "I want to go home". Patient denies any complains at this time. Denies fevers, chills, chest pain, shortness of breath, diarrhea, vomiting, constipation, nausea or dysuria. Patient is tolerating diet. Patient went to dialysis yesterd ay without any complications. Objective - Vital Signs/Intake and Output Vital Signs (last 24 hours): Temp Pulse Resp BP Pulse Ox 97.8 F 116 H 20 142/78 95 03/11/18 08:36 03/11/18 08:36 03/11/18 08:36 03/11/18 08:36 03/11/18 08:36 Intake and Output: 03/11/18 03/11/18 06:59 18:59 Intake Total 240 Balance 240 - Medications Medications: Current Medications Amlodipine Besylate (Norvasc) 10 mg PO DAILY [facility] Last Admin: 03/11/18 11:05 Dose: 10 mg Benztropine Mesylate (Cogentin) 2 mg PO DAILY [facility] Last Admin: 03/11/18 11:05 Dose: 2 mg Dextrose (Dextrose 50% Inj) 0 ml IV STAT PRN; Protocol PRN Reason: Hypoglycemia Protocol Dextrose (Glutose 15) 0 gm PO ONCE PRN; Protocol PRN Reason: Hypoglycemia Protocol Epoetin Douglas (Procrit) 6,000 unit IV MWF [facility] Last Admin: 03/10/18 09:49 Dose: 6,000 unit Famotidine (Pepcid) 20 mg PO DAILY [facility] Last Admin: 03/11/18 11:05 Dose: 20 mg Glimepiride (Amaryl) 4 mg PO ACB [facility] Last Admin: 03/11/18 08:44 Dose: 4 mg Glucagon (Glucagen Diagnostic Kit) 0 mg IM STAT PRN; Protocol PRN Reason: Hypoglycemia Protocol Haloperidol (Haldol) 5 mg PO BID [facility] Last Admin: 03/11/18 11:04 Dose: 5 mg Heparin Sodium (Porcine) (Heparin) 5,000 units SC Q8 [facility] Last Admin: 03/11/18 06:20 Dose: Not Given Hydralazine HCl (Apresoline) 50 mg PO BID [facility] Insulin Glargine (Lantus) 25 unit SC [facility] Last Admin: 03/10/18 23:53 Dose: Not Given Insulin Human Regular (Novolin R) 0 unit SC [facility]; Protocol Last Admin: 03/11/18 08:44 Dose: 4 unit Olanzapine (Zyprexa) 10 mg PO [facility] Last Admin: 03/10/18 23:54 Dose: Not Given Risperidone (Risperdal Tab) 2 mg PO BID [facility] Last Admin: 03/11/18 11:05 Dose: 2 mg Trazodone HCl (Desyrel) 100 mg PO BID [facility] Last Admin: 03/11/18 11:05 Dose: 100 mg Zolpidem Tartrate (Ambien) 5 mg PO [facility] Last Admin: 03/10/18 23:53 Dose: Not Given - Labs Labs: 03/11/18 08:00 03/11/18 08:00 PT 12.8 SECONDS (9.7-12.2) H 03/07/18 07:37 INR 1.2 03/07/18 07:37 APTT 33 SECONDS (21-34) 03/07/18 07:37 - Constitutional Appears: Non-toxic, No Acute Distress - Head Exam Head Exam: ATRAUMATIC, NORMAL INSPECTION, NORMOCEPHALIC - Eye Exam Eye Exam: EOMI, Normal appearance - ENT Exam ENT Exam: Mucous Membranes Moist, Normal Exam - Neck Exam Neck Exam: Full ROM, Normal Inspection - Respiratory Exam Respiratory Exam: Clear to Ausculation Bilateral, NORMAL BREATHING PATTERN. absent: Rales, Rhonchi, Wheezes - Cardiovascular Exam Cardiovascular Exam: REGULAR RHYTHM, +S1, +S2 - GI/Abdominal Exam GI & Abdominal Exam: Distended, Soft, Normal Bowel Sounds. absent: Guarding, Tenderness - Extremities Exam Extremities Exam: Full ROM, Normal Inspection. absent: Tenderness Additional comments: nonpitting edema on bilateral lower extremities multiple red lesions on both right and left lower extremities - Back Exam Back Exam: Full ROM, NORMAL INSPECTION - Neurological Exam Neurological Exam: Alert, Awake - Psychiatric Exam Psychiatric exam: Agitated, Flat Affect Additional comments: disheveled - Skin Skin Exam: Dry, Warm Assessment and Plan - Assessment and Plan (Free Text) Plan: BRIAN - Continue HD MWF -renal u/s 03/05 shows b/l renal cysts and evidence of medical renal dz -Nephro consult Dr. Mckeon - maintain hd mwf, outpatient placement - DC IV lasix - DC lisinopril - increase hydralazine dose to 50 mg Bid - consider renal biopsy if improved psychosis. with current psych issues and uncontrolled sugars, will hold off further steroids. - Procrit 6,000 unit IV MWF Dyspnea -CXR 03/05 shows pulm vasc congestion and atelectasis/pna -Pulm consult Dr. Mckinney - f/u recs - CXR 03/07 - Right sided dialysis catheter terminates in right atrium. Interval worsening layering pleural effusions and development of presumable alveolar pulmonary edema, worse in the right lung DM2 -hgb a1c 7.9 -continue lantus 25u hs -continue ISS -continue glimepiride 4mg acb HTN Echo -left ventricular function is severey reduced, with diffuse hypokinesis. there is mild concentric left ventricular hypertrophy. Left ventricular ejection fractuon is visually estimated to be about 20%. (see full report) -norvasc 10mg po -hydralazine 50mg po bid -d/c Lisinopril 5mg PO Daily Thrombocytopenia -continue to monitor -204 on 03/[address] Leyva has declared pt incapable of making his own medical decisions. -cogentin 2mg po -ambien 5mg po hs -trazodone 100mf po BID -haldol 5mg po bid -zyprexa 10mg po hs -psych consult Dr. Leyva :Patient altered. Will f/u with Dr Ashby for further reccomendations. Ppx -heparin 5000sc q8 -pepcid 20mg PO daily DISPO: We will follow up with SW about finding placement for outpatient HD for patient. Patient can be discharged home once Outpatient HD is arranged for patient. Plan discussed with Dr Pittman. Med management as per Dr Zain Crawford, PGY-1
--- NOTE | 2018-03-11 14:33 | PCM.PYCHPN ---
Psychiatric Progress Note - Psychiatric Progress Note Patient seen today, length of contact: 16 min Patient Chief Complaint: "OK" Problems Identified/Issues Discussed: The pt is seen, chart reviewed, case discussed with staff. Support and psychoeducation given No new symptoms reported, improving slowly and needs more time No SEs from medications Still regressed and disorganized but better than before Medication Change: No Medical Record Reviewed: Yes Mental Status Examination - Cognitive Function Orientation: Person, Place Memory: Impaired Attention: Poor Concentration: Poor Association: Loose Fund of Knowledge: Poor - Mood Mood: Other (irate easily) - Affect Affect: Other (intense, labile) - Speech Speech: Slurred - Formal Thought Process Formal Thought Process: Paranoia, Loosening of associations - Suicidal Ideation Suicidal Ideation: No - Homicidal Ideation Homicidal Ideation: No Goal/Treatment Plan - Goal/Treatment Plan Need for Continued Stay: Severe functional impairment, Other (medical) Progress Toward Problem(s) and Goals/Treatment Plan: The pt does NOT have capacity to make medical decisions. Haldol and zyprexa Support and psychoed Involve mother, maybe she will be able to convince him
[2018-03-11] MEDS: (Lantus) Insulin Glargine, Recombinant SC SCH (21:11)
[2018-03-12 08:11] LABS: BASO % 0.3 % (0.0-2.0); EOS # 0.3 K/uL (0.0-0.7); EOS % 3.1 % (0.0-4.0); HEMOGLOBIN 8.6 g/dL (12.0-18.0); LYMPH # 1.2 K/uL (1.0-4.3); LYMPH % 11.5 % (20.0-40.0); MEAN CELL VOLUME 87.5 fL (80.0-94.0); MEAN CORPUSCULAR HEMOGLOBIN 28.3 pg (27.0-31.0); MEAN CORPUSCULAR HGB CONC 32.4 g/dL (33.0-37.0); MEAN PLATELET VOLUME 7.7 fL (7.2-11.7); MONO # 1.2 K/uL (0.0-0.8); MONO % 11.5 % (0.0-10.0); NEUT # 7.8 K/uL (1.8-7.0); NEUT % 73.6 % (50.0-75.0); RBC 3.03 Mil/uL (4.40-5.90); RED CELL DISTRIBUTION WIDTH 14.9 % (11.5-14.5); WHITE BLOOD COUNT 10.6 K/uL (4.8-10.8)
[2018-03-12] MEDS: (Novolin R) Insulin Human Regular 100 units/ml vial SC SCH ×4 (08:11→21:55)
[2018-03-12 08:23] LABS: ALB/GLOB RATIO 0.9 (1.0-2.1); ALBUMIN 3.1 g/dL (3.5-5.0); CALCIUM 7.8 mg/dl (8.6-10.4)
[2018-03-12] MEDS: Epoetin Alfa Dialysis 3000 UNIT/ML Inj IV SCH (10:09)
--- NOTE | 2018-03-12 12:56 | CP.PCM.PN ---
Subjective - Date & Time of Evaluation Date of Evaluation: 03/12/18 Time of Evaluation: 10:20 - Subjective Subjective: PGY-[address] Pittman Patient is seen and examined at dialysis unit in . Patient was transferred to one on one room in the third floor overnight. Patient is currently found sleeping, resting comfortably in bed. Patient denies pain, fever, chills, chest pain, shortness of breath, nausea, vomiting, diarrhea, constipation or dysuria. Patient continues to ambulate and tolerating diet. Objective - Vital Signs/Intake and Output Vital Signs (last 24 hours): Temp Pulse Resp BP Pulse Ox 97.5 F L 98 H 20 144/88 98 03/12/18 09:33 03/12/18 09:33 03/12/18 09:33 03/12/18 11:33 03/12/18 09:33 Intake and Output: 03/12/18 03/12/18 06:59 18:59 Intake Total 240 Balance 240 - Medications Medications: Current Medications Amlodipine Besylate (Norvasc) 10 mg PO DAILY [facility] Last Admin: 03/12/18 11:11 Dose: Not Given Benztropine Mesylate (Cogentin) 2 mg PO DAILY [facility] Last Admin: 03/12/18 11:10 Dose: Not Given Dextrose (Dextrose 50% Inj) 0 ml IV STAT PRN; Protocol PRN Reason: Hypoglycemia Protocol Dextrose (Glutose 15) 0 gm PO ONCE PRN; Protocol PRN Reason: Hypoglycemia Protocol Epoetin Douglas (Procrit) 6,000 unit [place] [facility] Last Admin: 03/12/18 10:09 Dose: 6,000 unit Famotidine (Pepcid) 20 mg PO DAILY [facility] Last Admin: 03/12/18 11:11 Dose: Not Given Glimepiride (Amaryl) 4 mg PO ACB [facility] Last Admin: 03/12/18 08:13 Dose: 4 mg Glucagon (Glucagen Diagnostic Kit) 0 mg IM STAT PRN; Protocol PRN Reason: Hypoglycemia Protocol Haloperidol (Haldol) 5 mg PO BID [facility] Last Admin: 03/12/18 11:10 Dose: Not Given Heparin Sodium (Porcine) (Heparin) 5,000 units SC Q8 [facility] Last Admin: 03/12/18 06:52 Dose: 5,000 units Heparin Sodium (Porcine) (Heparin) 3,700 units IVP F [facility] Stop: 03/26/18 09:01 Last Admin: 03/12/18 10:58 Dose: 3,700 units Hydralazine HCl (Apresoline) 50 mg PO BID [facility] Last Admin: 03/12/18 11:10 Dose: Not Given Insulin Glargine (Lantus) 25 unit SC [facility] Last Admin: 03/11/18 21:11 Dose: Not Given Insulin Human Regular (Novolin R) 0 unit SC [facility]; Protocol Last Admin: 03/12/18 12:28 Dose: Not Given Olanzapine (Zyprexa) 10 mg PO [facility] Last Admin: 03/11/18 21:11 Dose: 10 mg Risperidone (Risperdal Tab) 2 mg PO BID [facility] Last Admin: 03/12/18 11:11 Dose: Not Given Trazodone HCl (Desyrel) 100 mg PO BID [facility] Last Admin: 03/12/18 11:10 Dose: Not Given Zolpidem Tartrate (Ambien) 5 mg PO [facility] Last Admin: 03/11/18 22:21 Dose: Not Given - Labs Labs: 03/12/18 08:00 03/12/18 08:00 PT 12.8 SECONDS (9.7-12.2) H 03/07/18 07:37 INR 1.2 03/07/18 07:37 APTT 33 SECONDS (21-34) 03/07/18 07:37 - Constitutional Appears: Non-toxic, No Acute Distress - Head Exam Head Exam: ATRAUMATIC, NORMAL INSPECTION, NORMOCEPHALIC - Eye Exam Eye Exam: EOMI, Normal appearance - ENT Exam ENT Exam: Mucous Membranes Moist, Normal Exam - Neck Exam Neck Exam: Normal Inspection - Respiratory Exam Respiratory Exam: Clear to Ausculation Bilateral, NORMAL BREATHING PATTERN. absent: Rales, Rhonchi, Wheezes - Cardiovascular Exam Cardiovascular Exam: Tachycardia, REGULAR RHYTHM, +S1, +S2 - GI/Abdominal Exam GI & Abdominal Exam: Distended, Soft, Normal Bowel Sounds. absent: Tenderness - Extremities Exam Extremities Exam: Full ROM. absent: Tenderness Additional comments: bilateral lower extremity nonpitting edema - Neurological Exam Neurological Exam: Alert, Awake, Oriented x3 - Psychiatric Exam Psychiatric exam: Flat Affect - Skin Skin Exam: Dry, Intact, Normal Color, Warm Additional comments: right upper chest permacath, clean, dry and functioning Assessment and Plan - Assessment and Plan (Free Text) Plan: BRIAN - Continue HD MWF -renal u/s 03/05 shows b/l renal cysts and evidence of medical renal dz -Nephro consult Dr. Henry - continued HD - psych recommendations - when more stable, FELISA and placement evaluation - Procrit 6,000 unit IV MWF Dyspnea -CXR 03/05 shows pulm vasc congestion and atelectasis/pna -Pulm consult Dr. Mckinney - f/u recs - CXR 03/07 - Right sided dialysis catheter terminates in right atrium. Interval worsening layering pleural effusions and development of presumable alveolar pulmonary edema, worse in the right lung DM2 -hgb a1c 7.9 -continue lantus 25u hs -continue ISS -continue glimepiride 4mg acb HTN Echo -left ventricular function is severey reduced, with diffuse hypokinesis. there is mild concentric left ventricular hypertrophy. Left ventricular ejection fractuon is visually estimated to be about 20%. (see full report) -norvasc 10mg po -hydralazine 50mg po bid -d/c Lisinopril 5mg PO Daily Thrombocytopenia -continue to monitor -204 on 03/[address] Leyva has declared pt incapable of making his own medical decisions. -cogentin 2mg po -ambien 5mg po hs -trazodone 100mf po BID -haldol 5mg po bid -zyprexa 10mg po hs - discontinued -psych consult Dr. Leyva Ppx -heparin 5000sc q8 -pepcid 20mg PO daily DISPO: as per NICOLAS, patient was accepted for outpatient HD at [facility] dialysis center in [place], [place]. NICOLAS will follow up with mother to inform about the HD center placement and for her to agree to have patient continue outpatient HD. Patient can be discharge once these arrangements are completed. Plan discussed with Dr Pittman. Med management as per Dr Zain Crawford, PGY-1
--- NOTE | 2018-03-12 13:39 | CP.PCM.PN ---
Subjective - Date & Time of Evaluation Date of Evaluation: 03/12/18 Time of Evaluation: 13:37 - Subjective Subjective: on 1:1 poor insight mildly agitated asks when he is going home ate entire breakfast unable to obtain ROS due to above Objective - Vital Signs/Intake and Output Vital Signs (last 24 hours): Temp Pulse Resp BP Pulse Ox 97.7 F 101 H 20 140/61 100 03/12/18 12:33 03/12/18 12:33 03/12/18 12:33 03/12/18 12:33 03/12/18 12:33 Intake and Output: 03/12/18 03/12/18 06:59 18:59 Intake Total 240 Balance 240 - Medications Medications: Current Medications Amlodipine Besylate (Norvasc) 10 mg PO DAILY [facility] Last Admin: 03/12/18 13:07 Dose: 10 mg Benztropine Mesylate (Cogentin) 2 mg PO DAILY [facility] Last Admin: 03/12/18 11:10 Dose: Not Given Dextrose (Dextrose 50% Inj) 0 ml IV STAT PRN; Protocol PRN Reason: Hypoglycemia Protocol Dextrose (Glutose 15) 0 gm PO ONCE PRN; Protocol PRN Reason: Hypoglycemia Protocol Epoetin Douglas (Procrit) 6,000 unit IV [facility] [place] Last Admin: 03/12/18 10:09 Dose: 6,000 unit Famotidine (Pepcid) 20 mg PO DAILY [facility] Last Admin: 03/12/18 13:07 Dose: 20 mg Glimepiride (Amaryl) 4 mg PO B [facility] Last Admin: 03/12/18 08:13 Dose: 4 mg Glucagon (Glucagen Diagnostic Kit) 0 mg IM STAT PRN; Protocol PRN Reason: Hypoglycemia Protocol Haloperidol (Haldol) 5 mg PO BID [facility] Last Admin: 03/12/18 11:10 Dose: Not Given Heparin Sodium (Porcine) (Heparin) 5,000 units SC Q8 [facility] Last Admin: 03/12/18 06:52 Dose: 5,000 units Heparin Sodium (Porcine) (Heparin) 3,700 units IVP [facility] Stop: 03/26/18 09:01 Last Admin: 03/12/18 10:58 Dose: 3,700 units Hydralazine HCl (Apresoline) 50 mg PO BID [facility] Last Admin: 03/12/18 11:10 Dose: Not Given Insulin Glargine (Lantus) 25 unit SC [facility] Last Admin: 03/11/18 21:11 Dose: Not Given Insulin Human Regular (Novolin R) 0 unit SC [facility]; Protocol Last Admin: 03/12/18 12:28 Dose: Not Given Olanzapine (Zyprexa) 10 mg PO HS [facility] Last Admin: 03/11/18 21:11 Dose: 10 mg Risperidone (Risperdal Tab) 2 mg PO BID [facility] Last Admin: 03/12/18 11:11 Dose: Not Given Trazodone HCl (Desyrel) 100 mg PO BID [facility] Last Admin: 03/12/18 11:10 Dose: Not Given Zolpidem Tartrate (Ambien) 5 mg PO [facility] Last Admin: 03/11/18 22:21 Dose: Not Given - Labs Labs: 03/12/18 08:00 03/12/18 08:00 PT 12.8 SECONDS (9.7-12.2) H 03/07/18 07:37 INR 1.2 03/07/18 07:37 APTT 33 SECONDS (21-34) 03/07/18 07:37 - Constitutional Appears: Combative, Confused - Head Exam Head Exam: ATRAUMATIC, NORMAL INSPECTION - Eye Exam Eye Exam: EOMI - ENT Exam ENT Exam: Mucous Membranes Moist - Neck Exam Neck Exam: Full ROM. absent: Lymphadenopathy - Respiratory Exam Respiratory Exam: Decreased Breath Sounds. absent: Accessory Muscle Use - Cardiovascular Exam Cardiovascular Exam: REGULAR RHYTHM. absent: Rubs - GI/Abdominal Exam GI & Abdominal Exam: Distended. absent: Tenderness - Extremities Exam Extremities Exam: Pedal Edema Assessment and Plan - Assessment and Plan (Free Text) Assessment: continued HD psych recommendations when more stable, FELISA and placement evaluation
[2018-03-12] MEDS: (Lantus) Insulin Glargine, Recombinant SC SCH (21:57)
[2018-03-13 07:46] LABS: ALBUMIN 2.8 g/dL (3.5-5.0); CALCIUM 7.3 mg/dl (8.6-10.4)
[2018-03-13] MEDS: (Novolin R) Insulin Human Regular 100 units/ml vial SC SCH ×4 (08:03→22:37)
[2018-03-13 08:08] LABS: BASO % 0.2 % (0.0-2.0); EOS # 0.2 K/uL (0.0-0.7); HEMOGLOBIN 8.6 g/dL (12.0-18.0); LYMPH # 1.3 K/uL (1.0-4.3); LYMPH % 11.3 % (20.0-40.0); MEAN CELL VOLUME 87.7 fL (80.0-94.0); MEAN CORPUSCULAR HEMOGLOBIN 28.7 pg (27.0-31.0); MEAN CORPUSCULAR HGB CONC 32.7 g/dL (33.0-37.0); MEAN PLATELET VOLUME 7.5 fL (7.2-11.7); MONO # 1.5 K/uL (0.0-0.8); MONO % 13.1 % (0.0-10.0); NEUT # 8.2 K/uL (1.8-7.0); NEUT % 73.4 % (50.0-75.0); NRBC % 0.2 % (0.0-2.0); RBC 3.01 Mil/uL (4.40-5.90); RED CELL DISTRIBUTION WIDTH 14.6 % (11.5-14.5); WHITE BLOOD COUNT 11.2 K/uL (4.8-10.8)
--- NOTE | 2018-03-13 11:15 | CP.PCM.PN ---
Subjective - Date & Time of Evaluation Date of Evaluation: 03/13/18 Time of Evaluation: 11:14 - Subjective Subjective: seen and examined remains withdrawn, sleeping- doesnt want to wake up chart reviewed Objective - Vital Signs/Intake and Output Vital Signs (last 24 hours): Temp Pulse Resp BP Pulse Ox 98.2 F 103 H 20 130/86 92 L 03/13/18 00:25 03/13/18 00:25 03/13/18 00:25 03/13/18 00:25 03/13/18 00:25 Intake and Output: 03/13/18 03/13/18 06:59 18:59 Intake Total 360 Balance 360 - Medications Medications: Current Medications Amlodipine Besylate (Norvasc) 10 mg PO DAILY [facility] Last Admin: 03/13/18 09:37 Dose: 10 mg Benztropine Mesylate (Cogentin) 1 mg PO BID [facility] Dextrose (Dextrose 50% Inj) 0 ml IV STAT PRN; Protocol PRN Reason: Hypoglycemia Protocol Dextrose (Glutose 15) 0 gm PO ONCE PRN; Protocol PRN Reason: Hypoglycemia Protocol Epoetin Douglas (Procrit) 6,000 unit IV [facility] Last Admin: 03/12/18 10:09 Dose: 6,000 unit Famotidine (Pepcid) 20 mg PO DAILY [facility] Last Admin: 03/13/18 09:37 Dose: 20 mg Glimepiride (Amaryl) 4 mg PO ACB [facility] Last Admin: 03/13/18 08:26 Dose: 4 mg Glucagon (Glucagen Diagnostic Kit) 0 mg IM STAT PRN; Protocol PRN Reason: Hypoglycemia Protocol Haloperidol (Haldol) 5 mg PO TID [facility] Last Admin: 03/13/18 09:38 Dose: 5 mg Heparin Sodium (Porcine) (Heparin) 5,000 units SC Q8 [facility] Last Admin: 03/13/18 06:37 Dose: Not Given Heparin Sodium (Porcine) (Heparin) 3,700 units IVP [facility] Stop: 03/26/18 09:01 Last Admin: 03/12/18 10:58 Dose: 3,700 units Hydralazine HCl (Apresoline) 50 mg PO BID [facility] Last Admin: 03/13/18 09:37 Dose: 50 mg Insulin Glargine (Lantus) 25 unit SC HS [facility] Last Admin: 03/12/18 21:57 Dose: Not Given Insulin Human Regular (Novolin R) 0 unit SC [facility]; Protocol Last Admin: 03/13/18 08:03 Dose: Not Given Risperidone (Risperdal Tab) 2 mg PO BID [facility] Last Admin: 03/13/18 09:37 Dose: 2 mg Trazodone HCl (Desyrel) 100 mg PO BID [facility] Last Admin: 03/13/18 09:38 Dose: 100 mg Zolpidem Tartrate (Ambien) 5 mg PO HS [facility] Last Admin: 03/11/18 22:21 Dose: Not Given - Labs Labs: 03/13/18 07:15 03/13/18 07:15 PT 12.8 SECONDS (9.7-12.2) H 03/07/18 07:37 INR 1.2 03/07/18 07:37 APTT 33 SECONDS (21-34) 03/07/18 07:37 - Constitutional Appears: No Acute Distress, Chronically Ill - Head Exam Head Exam: NORMAL INSPECTION, NORMOCEPHALIC - Eye Exam Eye Exam: Normal appearance, PERRL - ENT Exam ENT Exam: Mucous Membranes Moist, Normal Exam - Neck Exam Neck Exam: Full ROM, Normal Inspection - Respiratory Exam Respiratory Exam: Clear to Ausculation Bilateral, NORMAL BREATHING PATTERN - Cardiovascular Exam Cardiovascular Exam: REGULAR RHYTHM, RRR - GI/Abdominal Exam GI & Abdominal Exam: Distended, Soft - Extremities Exam Extremities Exam: Full ROM, Normal Inspection - Neurological Exam Neurological Exam: Alert, Awake. absent: Oriented x3 - Psychiatric Exam Psychiatric exam: Flat Affect - Skin Skin Exam: Dry, Warm (papular rash diffuse) Assessment and Plan (1) Acute renal failure Status: Acute (2) Cellulitis of right leg Status: Acute (3) Hyperglycemia Status: Acute - Assessment and Plan (Free Text) Assessment: maintain hd outpt placement avf when stable mauro w/ hd renal biopsy. empiric po steroids
[2018-03-13] MEDS: (Lantus) Insulin Glargine, Recombinant SC SCH (22:29)
[2018-03-14] MEDS: (Novolin R) Insulin Human Regular 100 units/ml vial SC SCH ×4 (08:36→21:33)
--- NOTE | 2018-03-14 13:16 | CP.PCM.PN ---
Subjective - Date & Time of Evaluation Date of Evaluation: 03/14/18 Time of Evaluation: 13:14 - Subjective Subjective: seen bedside eating lunch "feels well" but doesnt want to answer further refused exam appears comfortable Discussed w/ IR, not able to biopsy due to psychosis Objective - Vital Signs/Intake and Output Vital Signs (last 24 hours): Temp Pulse Resp BP Pulse Ox 97.7 F 100 H 20 159/83 H 98 03/14/18 08:00 03/14/18 08:00 03/14/18 08:00 03/14/18 08:00 03/14/18 08:00 Intake and Output: 03/14/18 03/14/18 06:59 18:59 Intake Total 300 200 Balance 300 200 - Medications Medications: Current Medications Amlodipine Besylate (Norvasc) 10 mg PO DAILY [facility] Last Admin: 03/14/18 10:12 Dose: 10 mg Benztropine Mesylate (Cogentin) 1 mg PO BID [facility] Last Admin: 03/14/18 10:01 Dose: 1 mg Dextrose (Dextrose 50% Inj) 0 ml IV STAT PRN; Protocol PRN Reason: Hypoglycemia Protocol Dextrose (Glutose 15) 0 gm PO ONCE PRN; Protocol PRN Reason: Hypoglycemia Protocol Epoetin [place] (Procrit) 6,000 unit IV [facility] [place] Admin: 03/12/18 10:09 Dose: 6,000 unit Famotidine (Pepcid) 20 mg PO DAILY [facility] Last Admin: 03/14/18 09:59 Dose: 20 mg Glimepiride (Amaryl) 4 mg PO ACB [facility] Last Admin: 03/14/18 08:37 Dose: 4 mg Glucagon (Glucagen Diagnostic Kit) 0 mg IM STAT PRN; Protocol PRN Reason: Hypoglycemia Protocol Haloperidol (Haldol) 5 mg PO TID [facility] Last Admin: 03/14/18 10:00 Dose: 5 mg Heparin Sodium (Porcine) (Heparin) 5,000 units SC Q8 [facility] Last Admin: 03/14/18 06:02 Dose: Not Given Heparin Sodium (Porcine) (Heparin) 3,700 units IVP [facility] Stop: 03/26/18 09:01 Last Admin: 03/12/18 10:58 Dose: 3,700 units Hydralazine HCl (Apresoline) 50 mg PO BID [facility] Last Admin: 03/14/18 09:58 Dose: 50 mg Insulin Glargine (Lantus) 25 unit SC [facility] Last Admin: 03/13/18 22:29 Dose: 25 units Insulin Human Regular (Novolin R) 0 unit SC [facility]; Protocol Last Admin: 03/14/18 12:22 Dose: Not Given Prednisone (Prednisone Tab) 60 mg PO DAILY [facility] Last Admin: 03/14/18 09:58 Dose: 60 mg Risperidone (Risperdal Tab) 2 mg PO BID [facility] Last Admin: 03/14/18 09:59 Dose: 2 mg Trazodone HCl (Desyrel) 100 mg PO BID [facility] Last Admin: 03/13/18 18:27 Dose: 100 mg Zolpidem Tartrate (Ambien) 5 mg PO [facility] Last Admin: 03/13/18 22:34 Dose: 5 mg - Labs Labs: 03/13/18 07:15 03/13/18 07:15 PT 12.8 SECONDS (9.7-12.2) H 03/07/18 07:37 INR 1.2 03/07/18 07:37 APTT 33 SECONDS (21-34) 03/07/18 07:37 - Constitutional Appears: No Acute Distress, Older Than Stated Age, Chronically Ill - Head Exam Head Exam: NORMAL INSPECTION, NORMOCEPHALIC - Eye Exam Eye Exam: Normal appearance - ENT Exam ENT Exam: Mucous Membranes Moist - Neck Exam Neck Exam: Full ROM - Neurological Exam Neurological Exam: Alert, Awake Assessment and Plan (1) Acute renal failure Status: Acute (2) Cellulitis of right leg Status: Acute (3) Hyperglycemia Status: Acute - Assessment and Plan (Free Text) Assessment: empiric steroids for HSP maintain hd mwf avf when stable outpt hd placementkamila
[2018-03-14 14:35] LABS: BASO % 0.2 % (0.0-2.0); EOS % 0.2 % (0.0-4.0); HEMOGLOBIN 8.4 g/dL (12.0-18.0); LYMPH # 0.7 K/uL (1.0-4.3); LYMPH % 6.5 % (20.0-40.0); MEAN CELL VOLUME 87.7 fL (80.0-94.0); MEAN CORPUSCULAR HEMOGLOBIN 28.4 pg (27.0-31.0); MEAN CORPUSCULAR HGB CONC 32.4 g/dL (33.0-37.0); MEAN PLATELET VOLUME 7.6 fL (7.2-11.7); MONO # 0.5 K/uL (0.0-0.8); MONO % 5.2 % (0.0-10.0); NEUT # 8.9 K/uL (1.8-7.0); NEUT % 87.9 % (50.0-75.0); PLATELET COUNT 240 K/uL (130-400); RBC 2.96 Mil/uL (4.40-5.90); WHITE BLOOD COUNT 10.1 K/uL (4.8-10.8)
[2018-03-14 14:50] LABS: ALB/GLOB RATIO 0.9 (1.0-2.1); CALCIUM 7.4 mg/dl (8.6-10.4)
[2018-03-14] MEDS: Epoetin Alfa Dialysis 3000 UNIT/ML Inj IV SCH (15:08)
[2018-03-14 15:23] LABS: BANDS 1 % (0-2); EOSINOPHIL 1 % (0-4); LYMPHOCYTE 5 % (20-40); MONOCYTE 5 % (0-10); NEUTROPHIL 88 % (50-75); TOTAL CELLS COUNTED 100
[2018-03-14 15:24] LABS: PLATELET ESTIMATE NORMAL (NORMAL)
[2018-03-14 15:28] LABS: ANISOCYTOSIS SLIGHT; HYPOCHROMIC SLIGHT; POLYCHROMIC SLIGHT
[2018-03-14 15:29] LABS: OVALOCYTES SLIGHT
[2018-03-14] MEDS: (Lantus) Insulin Glargine, Recombinant SC SCH (21:32)
[2018-03-15] MEDS: (Novolin R) Insulin Human Regular 100 units/ml vial SC SCH ×4 (08:15→22:21)
--- NOTE | 2018-03-15 11:28 | CP.PCM.PN ---
Subjective - Date & Time of Evaluation Date of Evaluation: 03/15/18 Time of Evaluation: 11:25 - Subjective Subjective: Notes reviewed Patient in bed States he wants to go home Feels well, reports no complaints Does not answer questions directly 10 point ros unobtainable due to mental status Objective - Vital Signs/Intake and Output Vital Signs (last 24 hours): Temp Pulse Resp BP Pulse Ox 97.2 F L 94 H 20 149/88 97 03/15/18 09:03 03/15/18 09:03 03/15/18 09:03 03/15/18 09:03 03/15/18 09:03 Intake and Output: 03/15/18 03/15/18 06:59 18:59 Intake Total 300 Balance 300 - Medications Medications: Current Medications Amlodipine Besylate (Norvasc) 10 mg PO DAILY [facility] Last Admin: 03/15/18 09:23 Dose: 10 mg Benztropine Mesylate (Cogentin) 1 mg PO BID [facility] Last Admin: 03/15/18 09:27 Dose: 1 mg Dextrose (Dextrose 50% Inj) 0 ml IV STAT PRN; Protocol PRN Reason: Hypoglycemia Protocol Dextrose (Glutose 15) 0 gm PO ONCE PRN; Protocol PRN Reason: Hypoglycemia Protocol Epoetin Douglas (Procrit) 6,000 unit IV MWF [facility] Last Admin: 03/14/18 15:08 Dose: 6,000 unit Famotidine (Pepcid) 20 mg PO DAILY [facility] Last Admin: 03/15/18 09:23 Dose: 20 mg Glimepiride (Amaryl) 4 mg PO ACB [facility] Last Admin: 03/15/18 08:22 Dose: 4 mg Glucagon (Glucagen Diagnostic Kit) 0 mg IM STAT PRN; Protocol PRN Reason: Hypoglycemia Protocol Haloperidol (Haldol) 5 mg PO TID [facility] Last Admin: 03/15/18 09:23 Dose: 5 mg Heparin Sodium (Porcine) (Heparin) 5,000 units SC Q8 [facility] Last Admin: 03/15/18 05:23 Dose: Not Given Hydralazine HCl (Apresoline) 50 mg PO BID [facility] Last Admin: 03/15/18 09:23 Dose: 50 mg Insulin Glargine (Lantus) 25 unit SC HS [facility] Last Admin: 03/14/18 21:32 Dose: Not Given Insulin Human Regular (Novolin R) 0 unit SC ACHS [facility]; Protocol Last Admin: 03/15/18 08:15 Dose: Not Given Prednisone (Prednisone Tab) 60 mg PO DAILY [facility] Last Admin: 03/15/18 09:23 Dose: 60 mg Risperidone (Risperdal Tab) 2 mg PO BID [facility] Last Admin: 03/15/18 09:23 Dose: 2 mg Trazodone HCl (Desyrel) 100 mg PO BID [facility] Last Admin: 03/15/18 09:23 Dose: 100 mg Zolpidem Tartrate (Ambien) 5 mg PO HS [facility] Last Admin: 03/14/18 21:31 Dose: Not Given - Labs Labs: 03/14/18 14:29 03/14/18 14:29 PT 12.8 SECONDS (9.7-12.2) H 03/07/18 07:37 INR 1.2 03/07/18 07:37 APTT 33 SECONDS (21-34) 03/07/18 07:37 - Constitutional Appears: No Acute Distress, Older Than Stated Age - Head Exam Head Exam: ATRAUMATIC, NORMAL INSPECTION - Eye Exam Eye Exam: EOMI, Normal appearance - ENT Exam ENT Exam: Mucous Membranes Moist, Normal Oropharynx - Neck Exam Neck Exam: absent: Lymphadenopathy, Thyromegaly - Respiratory Exam Respiratory Exam: absent: Rales, Rhonchi, Wheezes - Cardiovascular Exam Cardiovascular Exam: +S1, +S2. absent: Rubs - GI/Abdominal Exam GI & Abdominal Exam: Soft, Normal Bowel Sounds - Extremities Exam Extremities Exam: Pedal Edema. absent: Tenderness - Neurological Exam Neurological Exam: Awake - Skin Skin Exam: Dry, Intact Assessment and Plan (1) Hyperkalemia Status: Acute (2) Anemia Status: Acute (3) Psychoses Status: Acute (4) Acute renal failure Status: Acute - Assessment and Plan (Free Text) Assessment: Unable to obtain any further history] Maintain dialysis as scheduled Difficult to consider further renal treatment due to inability for biopsy COntinue supportive care
--- NOTE | 2018-03-15 19:50 | CP.PCM.PN ---
Subjective - Date & Time of Evaluation Date of Evaluation: 03/13/18 Objective - Vital Signs/Intake and Output Vital Signs (last 24 hours): Temp Pulse Resp BP Pulse Ox 97.7 F 97 H 20 131/73 96 03/15/18 16:49 03/15/18 16:49 03/15/18 16:49 03/15/18 16:49 03/15/18 16:49 Intake and Output: 03/15/18 03/16/18 18:59 06:59 Intake Total 300 Balance 300 - Medications Medications: Current Medications Amlodipine Besylate (Norvasc) 10 mg PO DAILY [facility] Last Admin: 03/15/18 09:23 Dose: 10 mg Benztropine Mesylate (Cogentin) 1 mg PO BID [facility] Last Admin: 03/15/18 17:50 Dose: 1 mg Dextrose (Dextrose 50% Inj) 0 ml IV STAT PRN; Protocol PRN Reason: Hypoglycemia Protocol Dextrose (Glutose 15) 0 gm PO ONCE PRN; Protocol PRN Reason: Hypoglycemia Protocol Epoetin Douglas (Procrit) 6,000 unit IV MWF [facility] Last Admin: 03/14/18 15:08 Dose: 6,000 unit Famotidine (Pepcid) 20 mg PO DAILY [facility] Last Admin: 03/15/18 09:23 Dose: 20 mg Glimepiride (Amaryl) 4 mg PO ACB [facility] Last Admin: 03/15/18 08:22 Dose: 4 mg Glucagon (Glucagen Diagnostic Kit) 0 mg IM STAT PRN; Protocol PRN Reason: Hypoglycemia Protocol Haloperidol (Haldol) 5 mg PO TID [facility] Last Admin: 03/15/18 17:49 Dose: 5 mg Hydralazine HCl (Apresoline) 50 mg PO BID [facility] Last Admin: 03/15/18 17:52 Dose: 50 mg Insulin Glargine (Lantus) 25 unit SC HS [facility] Last Admin: 03/14/18 21:32 Dose: Not Given Insulin Human Regular (Novolin R) 0 unit SC ACHS [facility]; Protocol Last Admin: 03/15/18 17:48 Dose: 2 unit Prednisone (Prednisone Tab) 60 mg PO DAILY [facility] Last Admin: 03/15/18 09:23 Dose: 60 mg Risperidone (Risperdal Tab) 2 mg PO BID [facility] Last Admin: 03/15/18 17:49 Dose: 2 mg Trazodone HCl (Desyrel) 100 mg PO BID [facility] Last Admin: 03/15/18 17:49 Dose: 100 mg Zolpidem Tartrate (Ambien) 5 mg PO HS [facility] Last Admin: 03/14/18 21:31 Dose: Not Given - Labs Labs: 03/14/18 14:29 03/14/18 14:29 PT 12.8 SECONDS (9.7-12.2) H 03/07/18 07:37 INR 1.2 03/07/18 07:37 APTT 33 SECONDS (21-34) 03/07/18 07:37
--- NOTE | 2018-03-15 19:50 | CP.PCM.PN ---
Subjective - Date & Time of Evaluation Date of Evaluation: 03/14/18 Objective - Vital Signs/Intake and Output Vital Signs (last 24 hours): Temp Pulse Resp BP Pulse Ox 97.7 F 97 H 20 131/73 96 03/15/18 16:49 03/15/18 16:49 03/15/18 16:49 03/15/18 16:49 03/15/18 16:49 Intake and Output: 03/15/18 03/16/18 18:59 06:59 Intake Total 300 Balance 300 - Medications Medications: Current Medications Amlodipine Besylate (Norvasc) 10 mg PO DAILY [facility] Last Admin: 03/15/18 09:23 Dose: 10 mg Benztropine Mesylate (Cogentin) 1 mg PO BID [facility] Last Admin: 03/15/18 17:50 Dose: 1 mg Dextrose (Dextrose 50% Inj) 0 ml IV STAT PRN; Protocol PRN Reason: Hypoglycemia Protocol Dextrose (Glutose 15) 0 gm PO ONCE PRN; Protocol PRN Reason: Hypoglycemia Protocol Epoetin Douglas (Procrit) 6,000 unit IV MWF [facility] Last Admin: 03/14/18 15:08 Dose: 6,000 unit Famotidine (Pepcid) 20 mg PO DAILY [facility] Last Admin: 03/15/18 09:23 Dose: 20 mg Glimepiride (Amaryl) 4 mg PO ACB [facility] Last Admin: 03/15/18 08:22 Dose: 4 mg Glucagon (Glucagen Diagnostic Kit) 0 mg IM STAT PRN; Protocol PRN Reason: Hypoglycemia Protocol Haloperidol (Haldol) 5 mg PO TID [facility] Last Admin: 03/15/18 17:49 Dose: 5 mg Hydralazine HCl (Apresoline) 50 mg PO BID [facility] Last Admin: 03/15/18 17:52 Dose: 50 mg Insulin Glargine (Lantus) 25 unit SC HS [facility] Last Admin: 03/14/18 21:32 Dose: Not Given Insulin Human Regular (Novolin R) 0 unit SC ACHS [facility]; Protocol Last Admin: 03/15/18 17:48 Dose: 2 unit Prednisone (Prednisone Tab) 60 mg PO DAILY [facility] Last Admin: 03/15/18 09:23 Dose: 60 mg Risperidone (Risperdal Tab) 2 mg PO BID [facility] Last Admin: 03/15/18 17:49 Dose: 2 mg Trazodone HCl (Desyrel) 100 mg PO BID [facility] Last Admin: 03/15/18 17:49 Dose: 100 mg Zolpidem Tartrate (Ambien) 5 mg PO HS [facility] Last Admin: 03/14/18 21:31 Dose: Not Given - Labs Labs: 03/14/18 14:29 03/14/18 14:29 PT 12.8 SECONDS (9.7-12.2) H 03/07/18 07:37 INR 1.2 03/07/18 07:37 APTT 33 SECONDS (21-34) 03/07/18 07:37
--- NOTE | 2018-03-15 19:51 | CP.PCM.PN ---
Subjective - Date & Time of Evaluation Date of Evaluation: 03/15/18 Time of Evaluation: 11:00 Objective - Vital Signs/Intake and Output Vital Signs (last 24 hours): Temp Pulse Resp BP Pulse Ox 97.7 F 97 H 20 131/73 96 03/15/18 16:49 03/15/18 16:49 03/15/18 16:49 03/15/18 16:49 03/15/18 16:49 Intake and Output: 03/15/18 03/16/18 18:59 06:59 Intake Total 300 Balance 300 - Medications Medications: Current Medications Amlodipine Besylate (Norvasc) 10 mg PO DAILY [facility] Last Admin: 03/15/18 09:23 Dose: 10 mg Benztropine Mesylate (Cogentin) 1 mg PO BID [facility] Last Admin: 03/15/18 17:50 Dose: 1 mg Dextrose (Dextrose 50% Inj) 0 ml IV STAT PRN; Protocol PRN Reason: Hypoglycemia Protocol Dextrose (Glutose 15) 0 gm PO ONCE PRN; Protocol PRN Reason: Hypoglycemia Protocol Epoetin Douglas (Procrit) 6,000 unit IV MWF [facility] Last Admin: 03/14/18 15:08 Dose: 6,000 unit Famotidine (Pepcid) 20 mg PO DAILY [facility] Last Admin: 03/15/18 09:23 Dose: 20 mg Glimepiride (Amaryl) 4 mg PO ACB [facility] Last Admin: 03/15/18 08:22 Dose: 4 mg Glucagon (Glucagen Diagnostic Kit) 0 mg IM STAT PRN; Protocol PRN Reason: Hypoglycemia Protocol Haloperidol (Haldol) 5 mg PO TID [facility] Last Admin: 03/15/18 17:49 Dose: 5 mg Hydralazine HCl (Apresoline) 50 mg PO BID [facility] Last Admin: 03/15/18 17:52 Dose: 50 mg Insulin Glargine (Lantus) 25 unit SC HS [facility] Last Admin: 03/14/18 21:32 Dose: Not Given Insulin Human Regular (Novolin R) 0 unit SC ACHS [facility]; Protocol Last Admin: 03/15/18 17:48 Dose: 2 unit Prednisone (Prednisone Tab) 60 mg PO DAILY [facility] Last Admin: 03/15/18 09:23 Dose: 60 mg Risperidone (Risperdal Tab) 2 mg PO BID [facility] Last Admin: 03/15/18 17:49 Dose: 2 mg Trazodone HCl (Desyrel) 100 mg PO BID [facility] Last Admin: 03/15/18 17:49 Dose: 100 mg Zolpidem Tartrate (Ambien) 5 mg PO HS [facility] Last Admin: 03/14/18 21:31 Dose: Not Given - Labs Labs: 03/14/18 14:29 03/14/18 14:29 PT 12.8 SECONDS (9.7-12.2) H 03/07/18 07:37 INR 1.2 03/07/18 07:37 APTT 33 SECONDS (21-34) 03/07/18 07:37
[2018-03-15] MEDS: (Lantus) Insulin Glargine, Recombinant SC SCH (22:21)
[2018-03-16] MEDS: (Novolin R) Insulin Human Regular 100 units/ml vial SC SCH ×4 (08:14→21:52)
--- NOTE | 2018-03-16 18:35 | CP.PCM.PN ---
Subjective - Date & Time of Evaluation Date of Evaluation: 03/16/18 Time of Evaluation: 08:00 - Subjective Subjective: clinically same Objective - Vital Signs/Intake and Output Vital Signs (last 24 hours): Temp Pulse Resp BP Pulse Ox 97.4 F L 92 H 20 142/76 95 03/16/18 16:00 03/16/18 16:00 03/16/18 16:00 03/16/18 16:00 03/16/18 16:00 Intake and Output: 03/16/18 03/16/18 06:59 18:59 Intake Total 590 200 Output Total 1 Balance 589 200 - Medications Medications: Current Medications Amlodipine Besylate (Norvasc) 10 mg PO DAILY [facility] Last Admin: 03/16/18 09:13 Dose: 10 mg Benztropine Mesylate (Cogentin) 1 mg PO BID [facility] Last Admin: 03/16/18 17:46 Dose: 1 mg Dextrose (Dextrose 50% Inj) 0 ml IV STAT PRN; Protocol PRN Reason: Hypoglycemia Protocol Dextrose (Glutose 15) 0 gm PO ONCE PRN; Protocol PRN Reason: Hypoglycemia Protocol Epoetin Douglas (Procrit) 6,000 unit IV MWF [facility] Last Admin: 03/14/18 15:08 Dose: 6,000 unit Famotidine (Pepcid) 20 mg PO DAILY [facility] Last Admin: 03/16/18 09:12 Dose: 20 mg Glimepiride (Amaryl) 4 mg PO ACB [facility] Last Admin: 03/16/18 08:16 Dose: 4 mg Glucagon (Glucagen Diagnostic Kit) 0 mg IM STAT PRN; Protocol PRN Reason: Hypoglycemia Protocol Haloperidol (Haldol) 5 mg PO TID [facility] Last Admin: 03/16/18 17:45 Dose: 5 mg Hydralazine HCl (Apresoline) 50 mg PO BID [facility] Last Admin: 03/16/18 17:45 Dose: 50 mg Insulin Glargine (Lantus) 25 unit SC HS [facility] Last Admin: 03/15/18 22:21 Dose: 25 units Insulin Human Regular (Novolin R) 0 unit SC ACHS [facility]; Protocol Last Admin: 03/16/18 17:24 Dose: Not Given Prednisone (Prednisone Tab) 60 mg PO DAILY [facility] Last Admin: 03/16/18 09:13 Dose: 60 mg Risperidone (Risperdal Tab) 2 mg PO BID [facility] Last Admin: 03/16/18 17:46 Dose: 2 mg Trazodone HCl (Desyrel) 100 mg PO BID [facility] Last Admin: 03/16/18 17:46 Dose: 100 mg Zolpidem Tartrate (Ambien) 5 mg PO [facility] Last Admin: 03/16/18 03:11 Dose: 5 mg - Labs Labs: 03/14/18 14:29 03/14/18 14:29 PT 12.8 SECONDS (9.7-12.2) H 03/07/18 07:37 INR 1.2 03/07/18 07:37 APTT 33 SECONDS (21-34) 03/07/18 07:37 - Constitutional Appears: Well - Head Exam Head Exam: ATRAUMATIC, NORMAL INSPECTION, NORMOCEPHALIC - Eye Exam Eye Exam: EOMI, Normal appearance, PERRL Pupil Exam: NORMAL ACCOMODATION, PERRL - ENT Exam ENT Exam: Mucous Membranes Moist, Normal Exam - Neck Exam Neck Exam: Full ROM, Normal Inspection. absent: Lymphadenopathy - Respiratory Exam Respiratory Exam: Decreased Breath Sounds - Cardiovascular Exam Cardiovascular Exam: REGULAR RHYTHM, +S1, +S2 - GI/Abdominal Exam GI & Abdominal Exam: Soft, Diminished Bowel Sounds - Rectal Exam Rectal Exam: Deferred
[2018-03-16] MEDS: (Lantus) Insulin Glargine, Recombinant SC SCH (21:52)
[2018-03-17] MEDS: (Novolin R) Insulin Human Regular 100 units/ml vial SC SCH ×4 (08:26→21:21)
[2018-03-17] MEDS: Epoetin Alfa Dialysis 3000 UNIT/ML Inj IV SCH (12:14)
--- NOTE | 2018-03-17 12:25 | CP.PCM.PN ---
Subjective - Date & Time of Evaluation Date of Evaluation: 03/17/18 Time of Evaluation: 12:23 - Subjective Subjective: Seen at dialysis To UF 3500ml- ,tolerating so far All immunological testing negative or minimal Ueos positive Alert, mildly agitated' Discussed with mother- offered renal bx for diagnosis- mother agrees through city bail[place] Objective - Vital Signs/Intake and Output Vital Signs (last 24 hours): Temp Pulse Resp BP Pulse Ox 97.4 F L 90 20 159/89 H 95 03/17/18 09:20 03/17/18 09:20 03/17/18 09:20 03/17/18 11:50 03/17/18 09:20 Intake and Output: 03/17/18 03/17/18 06:59 18:59 Intake Total 250 360 Balance 250 360 - Medications Medications: Current Medications Amlodipine Besylate (Norvasc) 10 mg PO DAILY [facility] Last Admin: 03/17/18 09:48 Dose: Not Given Benztropine Mesylate (Cogentin) 1 mg PO BID [facility] Last Admin: 03/17/18 09:48 Dose: Not Given Dextrose (Dextrose 50% Inj) 0 ml IV STAT PRN; Protocol PRN Reason: Hypoglycemia Protocol Dextrose (Glutose 15) 0 gm PO ONCE PRN; Protocol PRN Reason: Hypoglycemia Protocol Epoetin Douglas (Procrit) 6,000 unit IV MWF [facility] Last Admin: 03/17/18 12:14 Dose: 6,000 unit Famotidine (Pepcid) 20 mg PO DAILY [facility] Last Admin: 03/17/18 11:50 Dose: Not Given Glimepiride (Amaryl) 4 mg PO ACB [facility] Last Admin: 03/17/18 08:26 Dose: 4 mg Glucagon (Glucagen Diagnostic Kit) 0 mg IM STAT PRN; Protocol PRN Reason: Hypoglycemia Protocol Haloperidol (Haldol) 5 mg PO TID [facility] Last Admin: 03/17/18 09:48 Dose: Not Given Hydralazine HCl (Apresoline) 50 mg PO BID [facility] Last Admin: 03/17/18 09:48 Dose: Not Given Insulin Glargine (Lantus) 25 unit SC HS [facility] Last Admin: 03/16/18 21:52 Dose: 25 units Insulin Human Regular (Novolin R) 0 unit SC ACHS [facility]; Protocol Last Admin: 03/17/18 11:50 Dose: Not Given Prednisone (Prednisone Tab) 60 mg PO DAILY [facility] Last Admin: 03/17/18 09:48 Dose: Not Given Risperidone (Risperdal Tab) 2 mg PO BID [facility] Last Admin: 03/17/18 09:49 Dose: Not Given Trazodone HCl (Desyrel) 100 mg PO BID [facility] Last Admin: 03/17/18 09:48 Dose: Not Given Zolpidem Tartrate (Ambien) 5 mg PO HS [facility] Last Admin: 03/17/18 02:30 Dose: 5 mg - Labs Labs: 03/14/18 14:29 03/14/18 14:29 PT 12.8 SECONDS (9.7-12.2) H 03/07/18 07:37 INR 1.2 03/07/18 07:37 APTT 33 SECONDS (21-34) 03/07/18 07:37 - Constitutional Appears: No Acute Distress, Chronically Ill - Head Exam Head Exam: NORMAL INSPECTION, NORMOCEPHALIC - Eye Exam Eye Exam: EOMI, Normal appearance - Neck Exam Neck Exam: Normal Inspection. absent: Tenderness - Respiratory Exam Respiratory Exam: Clear to Ausculation Bilateral, NORMAL BREATHING PATTERN - Cardiovascular Exam Cardiovascular Exam: REGULAR RHYTHM, +S1 - GI/Abdominal Exam GI & Abdominal Exam: Soft. absent: Tenderness - Extremities Exam Extremities Exam: Pedal Edema. absent: Tenderness - Neurological Exam Neurological Exam: Awake, CN II-XII Intact - Skin Skin Exam: Dry, Warm Assessment and Plan (1) Fluid overload Status: Acute (2) Proteinuria Status: Acute (3) Acute renal failure Status: Acute (4) Psychoses Status: Acute - Assessment and Plan (Free Text) Plan: check protrein excretion rate Renal bx - mother would give consent
[2018-03-17 15:31] VITALS: RESP 20
--- NOTE | 2018-03-17 19:03 | CP.PCM.PN ---
Subjective - Date & Time of Evaluation Date of Evaluation: 03/17/18 Time of Evaluation: 08:00 - Subjective Subjective: clinically same Objective - Vital Signs/Intake and Output Vital Signs (last 24 hours): Temp Pulse Resp BP Pulse Ox 98.1 F 100 H 20 155/87 H 97 03/17/18 15:00 03/17/18 15:00 03/17/18 15:00 03/17/18 15:00 03/17/18 15:00 Intake and Output: 03/17/18 03/18/18 18:59 06:59 Intake Total 960 Balance 960 - Medications Medications: Current Medications Amlodipine Besylate (Norvasc) 10 mg PO DAILY [facility] Last Admin: 03/17/18 14:40 Dose: 10 mg Benztropine Mesylate (Cogentin) 1 mg PO BID [facility] Last Admin: 03/17/18 17:12 Dose: 1 mg Dextrose (Dextrose 50% Inj) 0 ml IV STAT PRN; Protocol PRN Reason: Hypoglycemia Protocol Dextrose (Glutose 15) 0 gm PO ONCE PRN; Protocol PRN Reason: Hypoglycemia Protocol Epoetin Douglas (Procrit) 6,000 unit IV [facility] [place] Last Admin: 03/17/18 12:14 Dose: 6,000 unit Famotidine (Pepcid) 20 mg PO DAILY [facility] Last Admin: 03/17/18 14:38 Dose: 20 mg Glimepiride (Amaryl) 4 mg PO ACB [facility] Last Admin: 03/17/18 08:26 Dose: 4 mg Glucagon (Glucagen Diagnostic Kit) 0 mg IM STAT PRN; Protocol PRN Reason: Hypoglycemia Protocol Haloperidol (Haldol) 5 mg PO TID [facility] Last Admin: 03/17/18 17:12 Dose: 5 mg Heparin Sodium (Porcine) (Heparin) 3,700 units IVP [facility] [place] Hydralazine HCl (Apresoline) 50 mg PO BID [facility] Last Admin: 03/17/18 17:12 Dose: 50 mg Insulin Glargine (Lantus) 25 unit SC HS [facility] Last Admin: 03/16/18 21:52 Dose: 25 units Insulin Human Regular (Novolin R) 0 unit SC ACHS [facility]; Protocol Last Admin: 03/17/18 17:12 Dose: Not Given Prednisone (Prednisone Tab) 60 mg PO DAILY [facility] Last Admin: 03/17/18 14:38 Dose: 60 mg Risperidone (Risperdal Tab) 2 mg PO BID [facility] Last Admin: 03/17/18 17:12 Dose: 2 mg Trazodone HCl (Desyrel) 100 mg PO BID [facility] Last Admin: 03/17/18 17:13 Dose: 100 mg Zolpidem Tartrate (Ambien) 5 mg PO HS [facility] Last Admin: 03/17/18 02:30 Dose: 5 mg - Labs Labs: 03/14/18 14:29 03/14/18 14:29 PT 12.8 SECONDS (9.7-12.2) H 03/07/18 07:37 INR 1.2 03/07/18 07:37 APTT 33 SECONDS (21-34) 03/07/18 07:37
[2018-03-17] MEDS: (Lantus) Insulin Glargine, Recombinant SC SCH (21:20)
[2018-03-18 06:39] LABS: MEAN CELL VOLUME 87.8 fL (80.0-94.0); MEAN CORPUSCULAR HEMOGLOBIN 27.8 pg (27.0-31.0); MEAN CORPUSCULAR HGB CONC 31.7 g/dL (33.0-37.0); MEAN PLATELET VOLUME 6.9 fL (7.2-11.7); RBC 3.25 Mil/uL (4.40-5.90); WHITE BLOOD COUNT 11.8 K/uL (4.8-10.8)
[2018-03-18 06:44] LABS: INR 1.2
[2018-03-18] MEDS: (Novolin R) Insulin Human Regular 100 units/ml vial SC SCH ×3 (07:58→17:25)
--- NOTE | 2018-03-18 10:54 | CP.PCM.PN ---
Subjective - Date & Time of Evaluation Date of Evaluation: 03/18/18 Time of Evaluation: 10:51 - Subjective Subjective: seen and examined poor historian denies any discomfort, appears to be tremulous Objective - Vital Signs/Intake and Output Vital Signs (last 24 hours): Temp Pulse Resp BP Pulse Ox 98.5 F 89 20 151/88 H 97 03/18/18 00:41 03/18/18 00:41 03/18/18 00:41 03/18/18 00:41 03/18/18 00:41 Intake and Output: 03/18/18 03/18/18 06:59 18:59 Intake Total 150 Balance 150 - Medications Medications: Current Medications Amlodipine Besylate (Norvasc) 10 mg PO DAILY [facility] Last Admin: 03/18/18 09:15 Dose: 10 mg Benztropine Mesylate (Cogentin) 1 mg PO BID [facility] Last Admin: 03/18/18 09:15 Dose: 1 mg Dextrose (Dextrose 50% Inj) 0 ml IV STAT PRN; Protocol PRN Reason: Hypoglycemia Protocol Dextrose (Glutose 15) 0 gm PO ONCE PRN; Protocol PRN Reason: Hypoglycemia Protocol Epoetin Douglas (Procrit) 6,000 unit IV [facility] [place] Last Admin: 03/17/18 12:14 Dose: 6,000 unit Famotidine (Pepcid) 20 mg PO DAILY [facility] Last Admin: 03/18/18 09:15 Dose: 20 mg Glimepiride (Amaryl) 4 mg PO ACB [facility] Last Admin: 03/18/18 07:59 Dose: 4 mg Glucagon (Glucagen Diagnostic Kit) 0 mg IM STAT PRN; Protocol PRN Reason: Hypoglycemia Protocol Haloperidol (Haldol) 5 mg PO TID [facility] Last Admin: 03/18/18 09:15 Dose: 5 mg Heparin Sodium (Porcine) (Heparin) 3,700 units IVP [facility] [place] Hydralazine HCl (Apresoline) 50 mg PO BID [facility] Last Admin: 03/18/18 09:15 Dose: 50 mg Insulin Glargine (Lantus) 25 unit SC HS [facility] Last Admin: 03/17/18 21:20 Dose: 25 units Insulin Human Regular (Novolin R) 0 unit SC ACHS [facility]; Protocol Last Admin: 03/18/18 07:58 Dose: 2 unit Prednisone (Prednisone Tab) 60 mg PO DAILY [facility] Last Admin: 03/18/18 09:14 Dose: 60 mg Risperidone (Risperdal Tab) 2 mg PO BID [facility] Last Admin: 03/18/18 09:16 Dose: 2 mg Trazodone HCl (Desyrel) 100 mg PO BID [facility] Last Admin: 03/18/18 09:15 Dose: 100 mg Zolpidem Tartrate (Ambien) 5 mg PO HS [facility] Last Admin: 03/17/18 21:20 Dose: 5 mg - Labs Labs: 03/18/18 06:17 03/14/18 14:29 PT 13.0 SECONDS (9.7-12.2) H 03/18/18 06:17 INR 1.2 03/18/18 06:17 APTT 27 SECONDS (21-34) 03/18/18 06:17 - Constitutional Appears: Non-toxic, No Acute Distress, Chronically Ill - Head Exam Head Exam: NORMAL INSPECTION, NORMOCEPHALIC - Eye Exam Eye Exam: Normal appearance, PERRL - ENT Exam ENT Exam: Mucous Membranes Moist, Normal Exam - Neck Exam Neck Exam: Full ROM, Normal Inspection - Respiratory Exam Respiratory Exam: Clear to Ausculation Bilateral, NORMAL BREATHING PATTERN - Cardiovascular Exam Cardiovascular Exam: REGULAR RHYTHM, RRR - GI/Abdominal Exam GI & Abdominal Exam: Distended, Soft - Extremities Exam Extremities Exam: Normal Inspection, Pedal Edema - Neurological Exam Neurological Exam: Alert, Awake. absent: Oriented x3 - Psychiatric Exam Psychiatric exam: Agitated - Skin Skin Exam: Dry, Intact (diffuse erythematous rash all over) Assessment and Plan (1) Acute renal failure Status: Acute (2) Cellulitis of right leg Status: Acute (3) Hyperglycemia Status: Acute - Assessment and Plan (Free Text) Assessment: maintain hd aggressive uf patient will benefit from renal biopsy if able to. 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 Maintain po steroids.
[2018-03-18 11:11] VITALS: O2SAT 92
--- NOTE | 2018-03-18 14:24 | CP.PCM.PN ---
Subjective - Date & Time of Evaluation Date of Evaluation: 03/18/18 Time of Evaluation: 08:00 - Subjective Subjective: clinically same Objective - Vital Signs/Intake and Output Vital Signs (last 24 hours): Temp Pulse Resp BP Pulse Ox 98.4 F 102 H 20 158/76 H 92 L 03/18/18 11:09 03/18/18 11:09 03/18/18 11:09 03/18/18 11:09 03/18/18 11:09 Intake and Output: 03/18/18 03/18/18 06:59 18:59 Intake Total 150 Balance 150 - Medications Medications: Current Medications Amlodipine Besylate (Norvasc) 10 mg PO DAILY [facility] Last Admin: 03/18/18 09:15 Dose: 10 mg Benztropine Mesylate (Cogentin) 1 mg PO BID [facility] Last Admin: 03/18/18 09:15 Dose: 1 mg Dextrose (Dextrose 50% Inj) 0 ml IV STAT PRN; Protocol PRN Reason: Hypoglycemia Protocol Dextrose (Glutose 15) 0 gm PO ONCE PRN; Protocol PRN Reason: Hypoglycemia Protocol Epoetin Douglas (Procrit) 6,000 unit IV [facility] Last Admin: 03/17/18 12:14 Dose: 6,000 unit Famotidine (Pepcid) 20 mg PO DAILY [facility] Last Admin: 03/18/18 09:15 Dose: 20 mg Glimepiride (Amaryl) 4 mg PO ACB [facility] Last Admin: 03/18/18 07:59 Dose: 4 mg Glucagon (Glucagen Diagnostic Kit) 0 mg IM STAT PRN; Protocol PRN Reason: Hypoglycemia Protocol Haloperidol (Haldol) 5 mg PO TID [facility] Last Admin: 03/18/18 13:46 Dose: 5 mg Heparin Sodium (Porcine) (Heparin) 3,700 units IVP [facility] Hydralazine HCl (Apresoline) 50 mg PO BID [facility] Last Admin: 03/18/18 09:15 Dose: 50 mg Insulin Glargine (Lantus) 25 unit SC HS [facility] Last Admin: 03/17/18 21:20 Dose: 25 units Insulin Human Regular (Novolin R) 0 unit SC ACHS [facility]; Protocol Last Admin: 03/18/18 11:40 Dose: 2 unit Prednisone (Prednisone Tab) 60 mg PO DAILY [facility] Last Admin: 03/18/18 09:14 Dose: 60 mg Risperidone (Risperdal Tab) 2 mg PO BID [facility] Last Admin: 03/18/18 09:16 Dose: 2 mg Trazodone HCl (Desyrel) 100 mg PO BID [facility] Last Admin: 03/18/18 09:15 Dose: 100 mg Zolpidem Tartrate (Ambien) 5 mg PO HS [facility] Last Admin: 03/17/18 21:20 Dose: 5 mg - Labs Labs: 03/18/18 06:17 03/14/18 14:29 PT 13.0 SECONDS (9.7-12.2) H 03/18/18 06:17 INR 1.2 03/18/18 06:17 APTT 27 SECONDS (21-34) 03/18/18 06:17
--- NOTE | 2018-03-18 15:45 | CP.PCM.PN ---
Subjective - Date & Time of Evaluation Date of Evaluation: 03/18/18 Time of Evaluation: 08:30 - Subjective Subjective: PGY-1 Medicine Progress Note for Dr. Pittman Patient was seen and examined today OOB sitting up in chair comfortably eating breakfast. Nurse reports no overnight events. Patient is poor historian and has tantrums. Denies current pain, shortness of breath. Wants to go home. Sitter endorses no urination since dialysis yesterday and no BM in the last two days. Objective - Vital Signs/Intake and Output Vital Signs (last 24 hours): Temp Pulse Resp BP Pulse Ox 98.4 F 102 H 20 158/76 H 92 L 03/18/18 11:09 03/18/18 11:09 03/18/18 11:09 03/18/18 11:09 03/18/18 11:09 Intake and Output: 03/18/18 03/18/18 06:59 18:59 Intake Total 150 250 Balance 150 250 - Medications Medications: Current Medications Amlodipine Besylate (Norvasc) 10 mg PO DAILY [facility] Last Admin: 03/18/18 09:15 Dose: 10 mg Benztropine Mesylate (Cogentin) 1 mg PO BID [facility] Last Admin: 03/18/18 09:15 Dose: 1 mg Dextrose (Dextrose 50% Inj) 0 ml IV STAT PRN; Protocol PRN Reason: Hypoglycemia Protocol Dextrose (Glutose 15) 0 gm PO ONCE PRN; Protocol PRN Reason: Hypoglycemia Protocol Epoetin Douglas (Procrit) 6,000 unit IV MWF [facility] Last Admin: 03/17/18 12:14 Dose: 6,000 unit Famotidine (Pepcid) 20 mg PO DAILY [facility] Last Admin: 03/18/18 09:15 Dose: 20 mg Glimepiride (Amaryl) 4 mg PO ACB [facility] Last Admin: 03/18/18 07:59 Dose: 4 mg Glucagon (Glucagen Diagnostic Kit) 0 mg IM STAT PRN; Protocol PRN Reason: Hypoglycemia Protocol Haloperidol (Haldol) 5 mg PO TID [facility] Last Admin: 03/18/18 13:46 Dose: 5 mg Heparin Sodium (Porcine) (Heparin) 3,700 units IVP [facility] Hydralazine HCl (Apresoline) 50 mg PO BID [facility] Last Admin: 03/18/18 09:15 Dose: 50 mg Insulin Glargine (Lantus) 25 unit SC [facility] Last Admin: 03/17/18 21:20 Dose: 25 units Insulin Human Regular (Novolin R) 0 unit SC [facility]; Protocol Last Admin: 03/18/18 11:40 Dose: 2 unit Prednisone (Prednisone Tab) 60 mg PO DAILY [facility] Last Admin: 03/18/18 09:14 Dose: 60 mg Risperidone (Risperdal Tab) 2 mg PO BID [facility] Last Admin: 03/18/18 09:16 Dose: 2 mg Trazodone HCl (Desyrel) 100 mg PO BID [facility] Last Admin: 03/18/18 09:15 Dose: 100 mg Zolpidem Tartrate (Ambien) 5 mg PO [facility] Last Admin: 03/17/18 21:20 Dose: 5 mg - Labs Labs: 03/18/18 06:17 03/14/18 14:29 PT 13.0 SECONDS (9.7-12.2) H 03/18/18 06:17 INR 1.2 03/18/18 06:17 APTT 27 SECONDS (21-34) 03/18/18 06:17 - Constitutional Appears: No Acute Distress, Older Than Stated Age, Combative, Chronically Ill - Head Exam Head Exam: ATRAUMATIC, NORMOCEPHALIC - Eye Exam Eye Exam: EOMI, PERRL - ENT Exam ENT Exam: Mucous Membranes Moist - Respiratory Exam Respiratory Exam: Clear to Ausculation Bilateral, NORMAL BREATHING PATTERN. absent: Rales, Rhonchi, Wheezes - Cardiovascular Exam Cardiovascular Exam: REGULAR RHYTHM, +S1, +S2. absent: Gallop, Rubs, Murmur - GI/Abdominal Exam GI & Abdominal Exam: Distended, Firm, Normal Bowel Sounds. absent: Guarding, Tenderness - Extremities Exam Extremities Exam: Normal Capillary Refill Additional comments: peripheral pulses palpable bilaterally (radial, DP, PT) R PermaCath access for dialysis - Neurological Exam Neurological Exam: Alert, Awake, Normal Gait. absent: Oriented x3 - Psychiatric Exam Psychiatric exam: Depressed - Skin Skin Exam: Dry, Normal Color, Warm Assessment and Plan - Assessment and Plan (Free Text) Plan: Acute on Chronic Renal Failure - HD MWF in R Permacath - renal US (03/06): bilateral renal cysts. No hydronephrosis. bilateral relative increased renal cortical echogenecity. - Prednisone 60mg po daily - Procrit 6000u IV MWF with dialysis - Nephro consulted: Dr. Elaine justin appreciated Renal Bx consented by mother over the phone - Surgery consulted: Dr. 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 LV function is severely reduced, with diffuse hyp okinesis. Mild concentric left ventricular hypertrophy. - Norvasc 10mg po daily - Hydralazine 50mg po bid - d/c Lisinopril 5mg po daily - monitor vitals Dyspnea - resolved - CXR (03/05): pulm vasc congestion and atelectasis vs. PNA - repeat CXR (03/07): right sided dialysis catheter terminates in right atrium. Interval worsening layering pleural effusions and development of presumable alveolar pulmonary edema, worse in the right lung - Pulm consulted: Dr. Mckinney - abhishek appreciated Capacity Psych consulted: Dr. Gordon justin appreciated Per Psych, patient does NOT have capacity to make his own medical decisions. - Cogentin 1mg po daily - Ambien 5mg po HS - Trazodone 100mg po bid - Haldol 5mg po tid - Resperidone 2mg po bid PPx DVT: Heparin 3700u IV MWF with dialysis GI: Pepcid 20mg po daily Diet: Consistent Carb - Heart Healthy, Renal Dialysis modified Dispo: as per SW, patient was accepted for outpatient HD at [facility] dialysis center in [place], [place]. SW will follow up with mother to inform about the HD center placement and for her to agree to have patient continue outpatient HD. Patient can be discharge once these arrangements are completed. d/w Dr. Pittman. All medical management per Dr. Zain Medrano PGY-1
[2018-03-18 16:05] VITALS: BP 121/72; PULSE 84; TEMP 98.9
[2018-03-18] MEDS ORDERED: Sodium Bicarbonate (8.4%) 50 mEq Vial ONE ×2 (20:00→20:10)
[2018-03-18] MEDS ORDERED: DOPamine 400 mg/5 ml Inj IV ONE (20:00)
[2018-03-18] MEDS ORDERED: CALCIUM CHLORIDE 100 MG/ML VIAL IV ONE (20:10)
--- NOTE | 2018-03-18 21:58 | CP.PCM.PRO ---
Pronouncement of Note - Clinical Findings Physical Exam: No Response Verbal/Painful Stimuli, Absent Peripheral Puls es{Carotid & Femoral}, Absent Heart & Breath Sounds, Absence of Vital Signs - Pronouncement Time Time of Pronouncement of : 20:40 - Notifications Pronouncement Notifications: Family Notified, Atending Notified Wellness Nurse Notified: No - Autopsy Autopsy Requested: No - [place] [id number]
--- NOTE | 2018-03-18 22:16 | PCM.RRT ---
HOUSEKEEPER NANNY Nurses Assessment - Situation Date: 03/18/18 Time HOUSEKEEPER NANNY was called: 08:06 HOUSEKEEPER NANNY Responder Arrival Time:: 08:07 HOUSEKEEPER NANNY Location:: 3T Med/Oncology Room Number: 359B HOUSEKEEPER NANNY Reason for Call: Change in Mental Status HOUSEKEEPER NANNY Called By: RN - Ventilator Settings FIO2 (% Oxygen): 50 I.Reason for HOUSEKEEPER NANNY - A) Acute Change in Patient: (Select all that apply): Acute change in mental status - Neurological Status (Select all that apply): Disoriented. absent: Alert, Responsive, Oriented, Verbal, Follows Commands, Lethargic - Constitutional Appears: In Acute Distress. absent: Non-toxic, Toxic, No Acute Distress - Respiratory Exam Respiratory Exam: Decreased Breath Sounds. absent: Clear to Ausculation Bilateral, NORMAL BREATHING PATTERN - Cardiovascular Exam Cardiovascular Exam: absent: REGULAR RHYTHM, +S1, +S2 Plan - Assessment of Findings&Treatment Plan House Doctor Note: HOUSEKEEPER NANNY called at 8:06 PM. Patient was unresponsive, lying in bed. According to nursing staff, patient just used the restroom and returned to bed and became unresponsive. Vitals attempted, no HR appreciated, no respirations present. CODE BLUE was initiated. Patient was intubated along with multiple rounds of CPR were initiated following ACLS protocol (please see code sheet for full details). Despite continued CPR, patient went from PEA to asystole . Patient was pronounced at 8:40PM. Doctor sanjay Pittman physician managing patient was notified. Family was notified.
== END 2018-03-18 20:40 | DRG 673 ==
LOC: C.ER 16:08 → C.9E 18:32 → C.9I 20:33 → C.9E 23:33 → C.6T 03-05 00:04 → C.3T 03-11 21:41
PROVIDERS: ADMIT Internal Medicine; ATTEND Internal Medicine
PROC: 5A1D70Z Performance of Urinary Filtration, Intermittent, Less than 6 Hours Per Day (ICD-10-PCS; 2018-03-04)
PROC: 06HM33Z Insertion of Infusion Device into Right Femoral Vein, Percutaneous Approach (ICD-10-PCS; 2018-03-04)
PROC: 5A1D70Z Performance of Urinary Filtration, Intermittent, Less than 6 Hours Per Day (ICD-10-PCS; 2018-03-05)
PROC: 02HV33Z Insertion of Infusion Device into Superior Vena Cava, Percutaneous Approach (ICD-10-PCS; 2018-03-07)
PROC: 5A1D70Z Performance of Urinary Filtration, Intermittent, Less than 6 Hours Per Day (ICD-10-PCS; 2018-03-07)
PROC: B518ZZA Fluoroscopy of Superior Vena Cava, Guidance (ICD-10-PCS; 2018-03-07)
PROC: B543ZZA Ultrasonography of Right Jugular Veins, Guidance (ICD-10-PCS; 2018-03-07)
PROC: 0JH63XZ Insertion of Tunneled Vascular Access Device into Chest Subcutaneous Tissue and Fascia, Percutaneous Approach (ICD-10-PCS; principal; 2018-03-07 13:30)
PROC: 5A1D70Z Performance of Urinary Filtration, Intermittent, Less than 6 Hours Per Day (ICD-10-PCS; 2018-03-10)
PROC: 5A1D70Z Performance of Urinary Filtration, Intermittent, Less than 6 Hours Per Day (ICD-10-PCS; 2018-03-12)
PROC: 5A1D70Z Performance of Urinary Filtration, Intermittent, Less than 6 Hours Per Day (ICD-10-PCS; 2018-03-14)
PROC: 5A1D70Z Performance of Urinary Filtration, Intermittent, Less than 6 Hours Per Day (ICD-10-PCS; 2018-03-17)
PROC: 5A12012 Performance of Cardiac Output, Single, Manual (ICD-10-PCS; 2018-03-18)
PROC: 0BH17EZ Insertion of Endotracheal Airway into Trachea, Via Natural or Artificial Opening (ICD-10-PCS; 2018-03-18)
DX: N17.9 Acute kidney failure, unspecified (principal); E11.10 Type 2 diabetes mellitus with ketoacidosis without coma; J18.9 Pneumonia, unspecified organism; J90 Pleural effusion, not elsewhere classified; D69.0 Allergic purpura; I12.0 Hypertensive chronic kidney disease with stage 5 chronic kidney disease or end stage renal disease; J98.11 Atelectasis; J81.1 Chronic pulmonary edema; L03.115 Cellulitis of right lower limb; M31.0 Hypersensitivity angiitis; I12.9 Hypertensive chronic kidney disease with stage 1 through stage 4 chronic kidney disease, or unspecified chronic kidney disease; N18.9 Chronic kidney disease, unspecified; E87.5 Hyperkalemia; F20.5 Residual schizophrenia; F23 Brief psychotic disorder; E87.70 Fluid overload, unspecified; E66.9 Obesity, unspecified; F20.9 Schizophrenia, unspecified; E11.22 Type 2 diabetes mellitus with diabetic chronic kidney disease; D63.1 Anemia in chronic kidney disease; E11.649 Type 2 diabetes mellitus with hypoglycemia without coma; D63.8 Anemia in other chronic diseases classified elsewhere; D69.6 Thrombocytopenia, unspecified; N04.9 Nephrotic syndrome with unspecified morphologic changes; N18.6 End stage renal disease; N28.1 Cyst of kidney, acquired; F79 Unspecified intellectual disabilities; Z79.4 Long term (current) use of insulin; Z71.3 Dietary counseling and surveillance; Z86.61 Personal history of infections of the central nervous system; Z89.412 Acquired absence of left great toe; Z83.3 Family history of diabetes mellitus